=== PATIENT | male | born 1955 | race Caucasian/White ===

== ENCOUNTER 2016-10-03 19:09 | Emergency (ER) | payer MEDICARE, OTHER ==
[~2016-10-03] VITALS: Ht 185.4 cm; Wt 80.0 kg
[~2016-10-03 19:09] MED LIST: MONT10TA2 PO; TRAZ100T50 PO
[2016-10-03 19:13] VITALS: BP 127/96; PULSE 74; RESP 16; TEMP 98.9; O2SAT 98
[2016-10-03] MEDS ORDERED: SOMA350T PO (22:40)
[2016-10-03] MEDS ORDERED: PROP20TA3 PO (22:40)
[2016-10-03] MEDS ORDERED: DIAZ10 PO (22:40)
[2016-10-03] MEDS ORDERED: TRAZ100T4 PO (22:40)
[2016-10-03] MEDS ORDERED: SUMA50TA2 PO (22:40)
[2016-10-03] MEDS ORDERED: MONT10TA2 PO (22:40)
[2016-10-03] MEDS ORDERED: TEMA30CA PO (22:40)
[2016-10-03] MEDS ORDERED: SERO200T PO (22:40)
[2016-10-03 22:42] VITALS: BP 135/87; PULSE 61; RESP 20; O2SAT 98
--- NOTE | 2016-10-03 22:58 | PD ---
HPI Chief Complaint: Headache Time Seen by Provider: 22:38 Travel History International Travel<30 days: No Contact w/Intl Traveler<30days: No Traveled to known affect area: No History of Present Illness HPI The patient is a 60 year old male who presents to the [facility] emergency department with a history of intermittent headaches since 2012 when he had a melanoma removed on the left side of his face near the medial canthus and the left side of his nose. The patient reports that he has been to see multiple specialists regarding this including an oral surgeon, urine nose and throat specialist, and recently was referred to [facility] for evaluation by a neurosurgeon. He reports that he has an appointment scheduled for October 18. He reports that he was told that he may have scar tissue entrapping and nerve over the left mu-ism causing his pain. He reports that the pain is getting worse with time. He reports that normally he will have a headache 1-2 times per month , however over the last 4 days he's had a persistent headache. The patient reports that the pain involves the left cheek and left mu-ism. He reports that it hurts worse with chewing or eating. He reports that the pain radiates from the mu-ism down to the left side of his neck. He denies having any nasal discharge or nasal congestion. He denies having any postnasal drip. He denies having any fevers. On review of systems, the patient denies any cough, congestion, neck pain, chest pain, shortness of breath, abdominal pain, vomiting , diarrhea, urinary symptoms, or neurologic symptoms. [facility] Past Medical History Narrative Medical The patient's past medical history is significant for migraine headaches, seasonal allergies, depression, bipolar disorder, history of melanoma involving the skin of the left side of the face, history of acid reflux, history of chronic neck and back pain, history of hypertension, history of seizure disorder. Arthritis: No Bipolar Disorder: Yes Anxiety: Yes Depression: Yes Cardiovascular Problems: No Chest Pain: No Congestive Heart Failure: No COPD: Yes Cerebrovascular Accident: No Diminished Hearing: No Endocrine: Yes Gastrointestinal Disorders: Yes (acid reflux) GERD: Yes Headaches: No Hypertension: Yes Musculoskeletal: Yes (CHRONIC NECK AND BACK PAIN) Psychiatric: Yes Migraines: No Seizures: Yes Past Surgical History Abdominal Surgery: No Cardiac Surgery: No Ear Surgery: No Endocrine Surgery: No Eye Surgery: No Genitourinary Surgery: No Neurologic Surgery: No Oral Surgery: No Thoracic Surgery: No Other Surgery: No Social History Alcohol Use: No Tobacco Use: No Substance Use: No Allergies-Medications (Allergen,Severity, Reaction): Coded Allergies: No Known Allergies (Verified , 04/23/11) Reported Meds & Prescriptions Reported Meds & Active Scripts Active Reported Propranolol (Propranolol HCl) 20 Mg Tab 20 Mg PO Q12HR Temazepam 30 Mg Cap 30 Mg PO HS PRN Sumatriptan (Sumatriptan Succinate) 50 Mg Tab 50 Mg PO DAILY PRN If a satisfactory response has not been obtained at 2 hours, a second dose may be administered Soma (Carisoprodol) 350 Mg Tab 350 Mg PO DAILY PRN Singulair (Montelukast Sodium) 10 Mg Tab 10 Mg PO DAILY Valium (Diazepam) 10 Mg Tab 10 Mg PO TID PRN Trazodone (Trazodone HCl) 100 Mg Tab 100 Mg PO HS Seroquel (Quetiapine Fumarate) 200 Mg Tab 200 Mg PO HS Physical Exam Narrative General: The patient is well-developed well-nourished male, uncomfortable appearing on arrival, holding a compress to the left side of his face. Head and Neck exam: Head is normocephalic atraumatic. The patient reports having left maxillary tenderness on palpation, left mu-ism tenderness on palpation without any palpable temporal artery. The patient has no popping/crepitus or tenderness on palpation of his temporomandibular joint. Eyes: EOMI, pupils are equal round and reactive to light. Nose: Midline septum with pink mucous membranes Mouth: Dentition unremarkable. Moist mucus membranes. Posterior oropharynx is not erythematous. No tonsillar hypertrophy. Uvula midline. Airway patent. Neck: No palpable lymphadenopathy. No nuchal rigidity. No thyromegaly. Cardiovascular: Regular rate and rhythm without murmurs, gallops, or rubs. Lungs: Clear to auscultation bilaterally. No wheezes, rhonchi, or rales. Abdomen: Soft, without tenderness to palpation in all 4 quadrants of the abdomen. No guarding, rebound, or rigidity. Normal bowel sounds are audible. No tenderness on palpation of McBurney's point. Extremities: No clubbing, cyanosis, or edema. Back: No spinous process tenderness to palpation. No costovertebral angle tenderness to palpation. Neurologic Exam: Cranial nerves 2-12 were intact on exam. Strength is 5/5 in all 4 extremities. No sensory deficits noted. No dysdiadochokinesis. Good finger to nose and Heel to arevalo bilaterally. Skin Exam: No rash noted. Intact skin that is warm and dry. Data Data Last Documented VS Vital Signs Date Time Temp Pulse Resp B/P Pulse Ox O2 Delivery O2 Flow Rate FiO2 10/03/16 22:42 61 20 135/87 98 Room Air 10/03/16 19:13 98.9 Orders Electrocardiogram (10/03/16 22:51) Complete Blood Count With Diff (10/03/16 22:51) Comprehensive Metabolic Panel (10/03/16 22:51) Urinalysis - C+S If Indicated (10/03/16 22:51) Westergren Sedimentation Rate (10/03/16 22:51) Magnesium (Mg) (10/03/16 22:51) Chest, Single Ap (10/03/16 22:51) Ct Brain W/O Iv Contrast(Rout) (10/03/16 22:51) Iv Access Insert/Monitor (10/03/16 22:51) Ecg Monitoring (10/03/16 22:51) Oximetry (10/03/16 22:51) Ct Facial Bones W/O Iv Cont (10/03/16 22:51) Ketorolac Inj (Toradol Inj) (10/04/16 00:30) Labs Laboratory Tests Test 10/03/16 10/03/16 23:01 23:05 White Blood Count 10.0 TH/MM3 Red Blood Count 4.81 MIL/MM3 Hemoglobin 15.3 GM/DL Hematocrit 44.6 % Mean Corpuscular Volume 92.7 FL Mean Corpuscular Hemoglobin 31.7 PG Mean Corpuscular Hemoglobin 34.2 % Concent Red Cell Distribution Width 13.2 % Platelet Count 322 TH/MM3 Mean Platelet Volume 8.4 FL Neutrophils (%) (Auto) 64.5 % Lymphocytes (%) (Auto) 24.2 % Monocytes (%) (Auto) 8.7 % Eosinophils (%) (Auto) 2.1 % Basophils (%) (Auto) 0.5 % Neutrophils # (Auto) 6.5 TH/MM3 Lymphocytes # (Auto) 2.4 TH/MM3 Monocytes # (Auto) 0.9 TH/MM3 Eosinophils # (Auto) 0.2 TH/MM3 Basophils # (Auto) 0.0 TH/MM3 CBC Comment DIFF FINAL Differential Comment Erythrocyte Sedimentation Rate 4 mm/hr Sodium Level 140 MEQ/L Potassium Level 4.1 MEQ/L Chloride Level 106 MEQ/L Carbon Dioxide Level 28.1 MEQ/L Anion Gap 6 MEQ/L Blood Urea Nitrogen 10 MG/DL Creatinine 0.96 MG/DL Estimat Glomerular Filtration 80 ML/MIN Rate Random Glucose 89 MG/DL Calcium Level 9.2 MG/DL Magnesium Level 2.0 MG/DL Total Bilirubin 0.6 MG/DL Aspartate Amino Transf 26 U/L (AST/SGOT) Alanine Aminotransferase 42 U/L (ALT/SGPT) Alkaline Phosphatase 108 U/L Total Protein 7.8 GM/DL Albumin 4.4 GM/DL Urine Color YELLOW Urine Turbidity CLEAR Urine pH 6.0 Urine Specific [place] 1.018 Urine Protein NEG mg/dL Urine Glucose (UA) NEG mg/dL Urine Ketones NEG mg/dL Urine Occult Blood NEG Urine Nitrite NEG Urine Bilirubin NEG Urine Urobilinogen LESS THAN 2.0 MG/DL Urine Leukocyte Esterase NEG Urine RBC LESS THAN 1 /hpf Urine WBC LESS THAN 1 /hpf Urine Hyaline Casts 1 /lpf Urine Granular Casts 2 /lpf Urine Mucus FEW /lpf Microscopic Urinalysis Comment CULT NOT INDICATED MDM Medical Decision Making Medical Screen Exam Complete: Yes Emergency Medical Condition: Yes Medical Record Reviewed: Yes Interpretation(s) Last Impressions Maxillofacial CT 10/03/162250 Signed Impressions: Service Date/Time: Monday, October 03, 2016 23:49 - CONCLUSION: Normal examination. Vitor Gagnon MD Head CT 10/03/162250 Signed Impressions: Service Date/Time: Monday, October 03, 2016 23:49 - CONCLUSION: Normal examination. Vitor Gagnon MD Chest X-Ray 10/03/162250 Signed Impressions: Service Date/Time: Monday, October 03, 2016 22:52 - CONCLUSION: Normal examination. Some lucency underneath the right hemidiaphragm NOT in the typical pattern of free air. Vitor Gagnon MD Differential Diagnosis Temporal arteritis, versus TMJ syndrome, versus trigeminal neuralgia, versus cluster headache, versus migraine headache, versus tension headache Narrative Course During the course of the patients emergency department visit, the patients history, examination, and differential diagnosis were reviewed with the patient. The patient had IV access obtained and blood work sent for analysis. The patient was placed on a playground monitor with oximetry and blood pressure monitoring. CT scan of the head and facial bones was ordered. The patient was initially provided Toradol 30 mg IV [address] scan of the head showed no evidence of intracranial hemorrhage. The patients laboratory studies were reviewed and remarkable for a CBC that shows a white count 10, hemoglobin 15.3, platelets 322 with monocytes at 8.7 sedimentation rate is 4 ruling out temporal arteritis. CMP is remarkable for a GFR of 80, urinalysis is unremarkable. Radiology studies were reviewed and remarkable for a chest x-ray that shows no acute abnormality. CT scan of the brain shows no acute abnormality. CT scan of the facial bones shows no acute abnormality. The patient's results were discussed with him. The patient reports that he does have an appointment with a specialist at [facility] in October. We discussed the differential. Temporal iritis has been ruled out, however still in the differential would be trigeminal neuralgia. The patient was instructed regarding the importance of following up with a neurologist regarding this. The patient was given the name of the neurologist internet sales consultant, Dr. Morales for followup. Carbamazepine, the drug of choice for trigeminal neuralgia unfortunately interacts with the patient Seroquel that he is on, therefore this was not written to be administered, however the patient was given a prescription for an anti-inflammatory pain medication and instructed regarding the importance of close follow-up with the neurologist. The patient is resting comfortably and feels better, is alert and in no distress. The patients results and examination findings were discussed with the patient. The repeat examination is unremarkable and benign. The history, exam, diagnostic testing, and current condition do not suggest any significant pathology to warrant further testing, continued ED treatment, admission, or surgical evaluation at this point. The vital signs have been stable. The patient does not have uncontrollable pain, intractable vomiting, or other significant symptoms. The patient's condition is stable and appropriate for discharge. The patient will pursue further outpatient evaluation with a primary care physician or other designated or consulting physician as indicated in the discharge instructions. The patient expressed understanding and was agreeable with this plan. Diagnosis Primary Impression: Facial pain syndrome Referrals: Adam Morales MD 3 days Patient Instructions: Atypical Facial Pain (ED), General Instructions Med/Other Pt SpecificInfo: Prescription(s) given Scripts Naproxen (Naprosyn)500 Mg Ghl219 Mg PO BID #10 TAB Ref 0 Prov:Tonia Diaz MD 10/04/16 Disposition: 01 DISCHARGE HOME Condition: Stable Tonia Diaz MD Oct 03, 2016 22:58
[2016-10-03 23:16] LABS: AUTOMATED NEUTROPHIL # 6.5 TH/MM3 (1.8-7.7); BASOPHIL % 0.5 % (0.0-2.0); EOSINOPHIL # 0.2 TH/MM3 (0-0.4); EOSINOPHIL % 2.1 % (0.0-4.0); HEMATOCRIT 44.6 % (39.0-51.0); HEMO FLAGS DIFF FINAL; LYMPH % 24.2 % (9.0-44.0); LYMPHOCYTE # 2.4 TH/MM3 (1.0-4.8); MEAN CELL VOLUME 92.7 FL (80.0-100.0); MEAN CORPUSCULAR HEMOGLOBIN 31.7 PG (27.0-34.0); MEAN CORPUSCULAR HGB CONC 34.2 % (32.0-36.0); MONO % 8.7 % (0.0-8.0); NEUT % 64.5 % (16.0-70.0); PLATELET COUNT 322 TH/MM3 (150-450); RED BLOOD COUNT 4.81 MIL/MM3 (4.50-5.90); RED CELL DISTRIBUTION WIDTH 13.2 % (11.6-17.2)
--- NOTE | 2016-10-03 23:18 | RADRPT ---
EXAM DATE/TIME: 10/03/2016 22:52 [facility] COMPARISON: No previous studies available for comparison. INDICATIONS : Left sided facial pain post op removal of cancer, cough. MEDICAL HISTORY : Melanoma SURGICAL HISTORY : None. ENCOUNTER: Initial ACUITY: 1 day PAIN SCORE: 0/10 LOCATION: Bilateral chest FINDINGS: A single view of the chest demonstrates the lungs to be symmetrically aerated without evidence of mas s, infiltrate or effusion. The cardiomediastinal contours are unremarkable. Osseous structures are intact.CONCLUSION: Normal examination. Some lucency underneath the right hemidiaphragm NOT in the typical pattern of lazara e air. Vitor Gagnon MD on October 03, 2016 at 23:16 Board Certified Radiologist. This report was verified electronically.
[2016-10-03 23:29] LABS: BLOOD, URINE NEG (NEG); COMMENT (UR) CULT NOT INDICATED; CULTURE IF INDICATED CULT NOT INDICATED; GLUCOSE,URINE NEG (NEG); GRANULAR CAST, URINE 2 /lpf; HYALINE CAST, URINE 1 /lpf (RARE); KETONE, URINE NEG (NEG); MUCUS URINE FEW /lpf (OCC); NITRITE,URINE NEG (NEG); URINE COLOR YELLOW (YELLW/STRAW)
[2016-10-03 23:35] LABS: ALT (GPT) 42 U/L (12-78); ANION GAP 6 MEQ/L (5-15); AST (GOT) 26 U/L (15-37); BICARBONATE 28.1 MEQ/L (21.0-32.0); BLOOD UREA NITROGEN 10 MG/DL (7-18); CHLORIDE 106 MEQ/L (98-107); GLOMERULAR FILTRATION RATE 80 ML/MIN (>89); POTASSIUM 4.1 MEQ/L (3.5-5.1); SODIUM (NA) 140 MEQ/L (136-145)
[2016-10-03 23:37] LABS: ALKALINE PHOSPHATASE 108 U/L (45-117); TOTAL BILIRUBIN ADULT 0.6 MG/DL (0.2-1.0)
--- NOTE | 2016-10-04 00:08 | RADRPT ---
EXAM DATE/TIME: 10/03/2016 23:49 [facility] COMPARISON: No previous studies available for comparison. INDICATIONS : Left sided headache x1 month. RADIATION DOSE: 46.13 CTDIvol (mGy) MEDICAL HISTORY : Seizures. Gastroesophageal reflux disease. Chronic obstructive pulmonary disease. SURGICAL HISTORY : Cervical spine surgery. ENCOUNTER: Initial ACUITY: 1 month PAIN SCALE: 10/10 LOCATION: Left cranial TECHNIQUE: Multiple contiguous axial images were obtained of the head. Using automated exposure control and adj ustment of the mA and/or kV according to patient size, radiation dose was kept as low as reasonably a chievable to obtain optimal diagnostic quality images. FINDINGS: CEREBRUM: The ventricles are normal for age. No evidence of midline shift, mass lesion, hemorrhage or acute in farction. No extra-axial fluid collections are seen. POSTERIOR FOSSA: The cerebellum and brainstem are intact. The 4th ventricle is midline. The cerebellopontine angle i s unremarkable. EXTRACRANIAL: The visualized portion of the orbits is intact. SKULL: The calvaria is intact. No evidence of skull fracture. CONCLUSION: Normal examination. Vitor Gagnon MD on October 04, 2016 at 0:07 Board Certified Radiologist. This report was verified electronically.
--- NOTE | 2016-10-04 00:10 | RADRPT ---
EXAM DATE/TIME: 10/03/2016 23:49 [facility] COMPARISON: No previous studies available for comparison. INDICATIONS : Left sided maxillary pain. History of melanoma removal left side of face. RADIATION DOSE: 36.44 CTDIvol (mGy) MEDICAL HISTORY : Seizures. Chronic obstructive pulmonary disease. Gastroesophageal reflux disease. SURGICAL HISTORY : Cervical spine surgery. ENCOUNTER: Initial ACUITY: 1 month PAIN SCORE: 10/10 LOCATION: Left facial TECHNIQUE: Volumetric scanning of the facial bones was performed. Using automated exposure control and adjustme nt of the mA and/or kV according to patient size, radiation dose was kept as low as reasonably achiev able to obtain optimal diagnostic quality images. FINDINGS: ORBITS: The orbital and infraorbital osseous structures are intact. The retroconal structures have a normal configuration. No radiopaque foreign bodies are seen. NASAL BONE: The nasal bone and maxillary spine are intact ZYGOMATIC ARCHES: Symmetric without evidence of fracture. SINUSES: The maxillary, ethmoid and frontal sinuses are intact. No air-fluid levels seen. NASAL CAVITY: The nasal septum is intact and midline. The lacrimal ducts are intact. SOFT TISSUES: No radiopaque foreign bodies seen. No soft-tissue swelling is seen. INTRACRANIAL: No intracranial air seen. CRIBIFORM PLATE: Grossly intact. CONCLUSION: Normal examination. Vitor Gagnon MD on October 04, 2016 at 0:08 Board Certified Radiologist. This report was verified electronically.
[2016-10-04] MEDS ORDERED: KETOROLAC TROMETHAMINE 30 MG/ML (IVP) VIAL IV PUSH ONE (00:30)
[2016-10-04] MEDS ORDERED: NAPR500 PO (00:57)
[2016-10-04 01:56] VITALS: BP 138/89
--- NOTE | 2016-10-04 11:33 | EKG ---
Date Performed: 10/03/2016 Time Performed: 23:28:16 PTAGE: 60 years EKG: SINUS BRADYCARDIA INCOMPLETE RIGHT BUNDLE BRANCH BLOCK BORDERLINE ECG PREVIOUS TRACING : 05/02/2010 20.14 Compared to prior tracing no significant change DOCTOR: Macrelino Gusman Interpretating Date/Time 10/04/2016 11:31:25
== END 2016-10-04 01:57 | disposition home or self-care (01) ==
LOC: NEPE 19:09
DX: R51 Headache (principal); I10 Essential (primary) hypertension; G40.909 Epilepsy, unspecified, not intractable, without status epilepticus; J44.9 Chronic obstructive pulmonary disease, unspecified; G89.29 Other chronic pain; K21.9 Gastro-esophageal reflux disease without esophagitis; R00.1 Bradycardia, unspecified; I45.10 Unspecified right bundle-branch block
CPT/HCPCS: 70450; 70486; 71010; 80053; 81001; 83735; 85025; 85652; 93005; 96374; 99284; J1885

== ENCOUNTER 2016-11-12 23:22 | Emergency (ER) | payer MEDICARE, OTHER ==
[~2016-11-12] VITALS: Ht 182.9 cm; Wt 81.2 kg
[~2016-11-12 23:22] MED LIST changes: +DIAZ10 PO; +NAPR500 PO; +PROP20TA3 PO; +SERO200T PO; +SOMA350T PO; +SUMA50TA2 PO; +TEMA30CA PO; +TRAZ100T4 PO; -TRAZ100T50 PO
[2016-11-12 23:31] VITALS: BP 128/89; PULSE 77; RESP 14; TEMP 98.1; O2SAT 96
[2016-11-13] MEDS ORDERED: SODIUM CHLOR 0.9% 1000 ML INJ 1,000 ML IV SCH (00:15)
[2016-11-13] MEDS ORDERED: HYDROmorphone HCL PF 1 MG/ML VIAL IV PUSH ONE (00:15)
[2016-11-13] MEDS ORDERED: ONDANSETRON HCL 4 MG/2 ML VIAL IV PUSH ONE (00:15)
[2016-11-13 00:41] LABS: AUTOMATED NEUTROPHIL # 9.4 TH/MM3 (1.8-7.7); BASOPHIL # 0.1 TH/MM3 (0-0.2); BASOPHIL % 0.5 % (0.0-2.0); EOSINOPHIL # 0.1 TH/MM3 (0-0.4); EOSINOPHIL % 0.5 % (0.0-4.0); HEMATOCRIT 43.8 % (39.0-51.0); HEMO FLAGS DIFF FINAL; LYMPH % 12.6 % (9.0-44.0); LYMPHOCYTE # 1.5 TH/MM3 (1.0-4.8); MEAN CELL VOLUME 91.8 FL (80.0-100.0); MEAN CORPUSCULAR HGB CONC 33.8 % (32.0-36.0); MONO % 9.3 % (0.0-8.0); NEUT % 77.1 % (16.0-70.0); PLATELET COUNT 296 TH/MM3 (150-450); RED BLOOD COUNT 4.77 MIL/MM3 (4.50-5.90); RED CELL DISTRIBUTION WIDTH 12.6 % (11.6-17.2); WHITE BLOOD COUNT 12.1 TH/MM3 (4.0-11.0)
[2016-11-13 00:48] LABS: POTASSIUM 3.5 MEQ/L (3.5-5.1)
[2016-11-13 00:51] LABS: BICARBONATE 22.6 MEQ/L (21.0-32.0)
[2016-11-13] MEDS ORDERED: IOHEXOL 350 MG/ML 10 ML VIAL (for RAD DIAG) IV ONE (01:08)
--- NOTE | 2016-11-13 01:28 | RADHPO ---
EXAM DATE/TIME: 11/13/2016 00:59 [facility] COMPARISON: No previous studies available for comparison. INDICATIONS : Left lower qaudrant pain with difficulty urinating. IV CONTRAST: 95 cc Omnipaque 350 (iohexol) IV ORAL CONTRAST: No oral contrast ingested. RADIATION DOSE: 10.61 CTDIvol (mGy) MEDICAL HISTORY : Hypertension. Gastroesophageal reflux disease. Chronic obstructive pulmonary disease. SURGICAL HISTORY : None. ENCOUNTER: Initial ACUITY: 1 day PAIN SCALE: 5/10 LOCATION: Left lower quadrant TECHNIQUE: Volumetric scanning of the abdomen and pelvis was performed. Using automated exposure control and ad justment of the mA and/or kV according to patient size, radiation dose was kept as low as reasonably achievable to obtain optimal diagnostic quality images. FINDINGS: LOWER LUNGS: The visualized lower lungs are clear. LIVER: Homogeneous density without lesion. There is no dilation of the biliary tree. No calcified gallston es. SPLEEN: Normal size without lesion. PANCREAS: Within normal limits. KIDNEYS: Normal in size and shape. There is no mass, stone or hydronephrosis other than tiny cortical cysts. ADRENAL GLANDS: Within normal limits. VASCULAR: There is no aortic aneurysm. BOWEL/MESENTERY: The stomach, small bowel, and colon demonstrate no acute abnormality. There is no free intraperitone al air or fluid. Suture around the cecum suspicious for appendectomy ABDOMINAL WALL: Within normal limits. RETROPERITONEUM: There is no lymphadenopathy. BLADDER: No wall thickening or mass. REPRODUCTIVE: Within normal limits. INGUINAL: There is no lymphadenopathy or hernia. Mild fatty prominence of the left inguinal canal opening could be an early hernia but no bowel is involved. MUSCULOSKELETAL: Within normal limits for patient age. CONCLUSION: No etiology for abdominal pain is identified. Suspected appendectomy suture. Vitor Gagnon MD on November 13, 2016 at 1:23 Board Certified Radiologist. This report was verified electronically.
[2016-11-13 01:49] LABS: BLOOD, URINE NEG (NEG); GLUCOSE,URINE NEG (NEG); KETONE, URINE TRACE mg/dL (NEG); NITRITE,URINE NEG (NEG); PH, URINE 5.5 (5.0-8.5)
[2016-11-13 01:55] LABS: CALCIUM OXALATE CRYSTALS,URINE OCC /hpf; COMMENT (UR) CULT NOT INDICATED; CULTURE IF INDICATED CULT NOT INDICATED; RBC, URINE 0-2 /hpf (0-3); SQUAMOUS EPITHELIAL CELL URINE 0-5 /hpf (0-5); URINE COLOR YELLOW (YELLW/STRAW); WBC, URINE 0-2 /hpf (0-5)
[2016-11-13] MEDS ORDERED: HYDR-3533 PO (02:01)
--- NOTE | 2016-11-13 02:02 | PD ---
HPI Chief Complaint: Complaint Time Seen by Provider: 00:01 Travel History International Travel<30 days: No Contact w/Intl Traveler<30days: No Traveled to known affect area: No History of Present Illness HPI 60-year-old male presents to the emergency department by private vehicle for complaint of left groin pain. Patient states he is noted decreased urine output. Patient states he's had a couple bottles of water and some tea and still has not produced urine. Patient denies fever or chills. Patient's had no nausea or vomiting. Patient denies any injury. Patient's noted lump to the lower lower groin area. Patient denies any testicular pain penile discharge or scrotal mass. Patient denies any trauma or injury. PFSH Past Medical History Narrative Medical COPD bipolar disorder chronic pain syndrome, seizure; no surgery; no tobacco use ; nursing notes reviewed Arthritis: No Bipolar Disorder: Yes Anxiety: Yes Depression: Yes Cardiovascular Problems: No Chest Pain: No Congestive Heart Failure: No COPD: Yes Cerebrovascular Accident: No Diminished Hearing: No Endocrine: Yes Gastrointestinal Disorders: Yes (acid reflux) GERD: Yes Headaches: No Hypertension: Yes Musculoskeletal: Yes (CHRONIC NECK AND BACK PAIN) Psychiatric: Yes Migraines: No Seizures: Yes ?: Not Past Surgical History Abdominal Surgery: No Cardiac Surgery: No Ear Surgery: No Endocrine Surgery: No Eye Surgery: No Genitourinary Surgery: No Neurologic Surgery: No Oral Surgery: No Thoracic Surgery: No Other Surgery: No Social History Alcohol Use: No Tobacco Use: No Substance Use: No Allergies-Medications (Allergen,Severity, Reaction): Coded Allergies: No Known Allergies (Verified , 04/23/11) Reported Meds & Prescriptions Reported Meds & Active Scripts Active Lortab (Hydrocodone-Acetaminophen) 5-325 Mg Tab 1 Tab PO Q6H PRN Reported Temazepam 30 Mg Cap 30 Mg PO HS PRN Sumatriptan (Sumatriptan Succinate) 50 Mg Tab 50 Mg PO DAILY PRN If a satisfactory response has not been obtained at 2 hours, a second dose may be administered Singulair (Montelukast Sodium) 10 Mg Tab 10 Mg PO DAILY Valium (Diazepam) 10 Mg Tab 10 Mg PO TID PRN Trazodone (Trazodone HCl) 100 Mg Tab 100 Mg PO HS Seroquel (Quetiapine Fumarate) 200 Mg Tab 200 Mg PO HS Review of Systems Except as stated in HPI: all other systems reviewed are Neg Physical Exam Narrative GENERAL: SKIN: Warm and dry. HEAD: Normocephalic. EYES: No scleral icterus. No injection or drainage. NECK: Supple, trachea midline. No JVD or lymphadenopathy. CARDIOVASCULAR: Regular rate and rhythm without murmurs, gallops, or rubs. RESPIRATORY: Breath sounds equal bilaterally. No accessory muscle use. GASTROINTESTINAL: Abdomen soft, non-tender, nondistended. : Circumcised male bilaterally descended testicles positive cremasteric reflex small palpable hernia readily reducible with gentle pressure. MUSCULOSKELETAL: No cyanosis, or edema. BACK: Nontender without obvious deformity. No CVA tenderness. Data Data Last Documented VS Vital Signs Date Time Temp Pulse Resp B/P Pulse Ox O2 Delivery O2 Flow Rate FiO2 11/13/16 02:16 88 16 148/72 99 11/12/16 23:31 98.1 Orders Bladder Scan PRN (11/12/16 23:50) Urinalysis - C+S If Indicated (11/12/16 23:50) ^ Saline Lock (11/13/16 00:01) Complete Blood Count With Diff (11/13/16 00:01) Basic Metabolic Panel (Bmp) (11/13/16 00:01) Ct Abd/Pel W Iv Contrast(Rout) (11/13/16 ) Hydromorphone Pf Inj (Dilaudid Pf Inj) (11/13/16 00:15) Ondansetron Inj (Zofran Inj) (11/13/16 00:15) Sodium Chlor 0.9% 1000 Ml Inj (Ns 1000 M (11/13/16 00:15) Iohexol 350 Inj (Omnipaque 350 Inj) (11/13/16 01:08) Ketorolac Inj (Toradol Inj) (11/13/16 02:15) Labs Laboratory Tests Test 11/13/16 11/13/16 00:10 01:40 White Blood Count 12.1 TH/MM3 Red Blood Count 4.77 MIL/MM3 Hemoglobin 14.8 GM/DL Hematocrit 43.8 % Mean Corpuscular Volume 91.8 FL Mean Corpuscular Hemoglobin 31.0 PG Mean Corpuscular Hemoglobin 33.8 % Concent Red Cell Distribution Width 12.6 % Platelet Count 296 TH/MM3 Mean Platelet Volume 8.3 FL Neutrophils (%) (Auto) 77.1 % Lymphocytes (%) (Auto) 12.6 % Monocytes (%) (Auto) 9.3 % Eosinophils (%) (Auto) 0.5 % Basophils (%) (Auto) 0.5 % Neutrophils # (Auto) 9.4 TH/MM3 Lymphocytes # (Auto) 1.5 TH/MM3 Monocytes # (Auto) 1.1 TH/MM3 Eosinophils # (Auto) 0.1 TH/MM3 Basophils # (Auto) 0.1 TH/MM3 CBC Comment DIFF FINAL Differential Comment Sodium Level 139 MEQ/L Potassium Level 3.5 MEQ/L Chloride Level 107 MEQ/L Carbon Dioxide Level 22.6 MEQ/L Anion Gap 9 MEQ/L Blood Urea Nitrogen 18 MG/DL Creatinine 1.30 MG/DL Estimat Glomerular Filtration 56 ML/MIN Rate Random Glucose 107 MG/DL Calcium Level 9.3 MG/DL Urine Color YELLOW Urine Turbidity CLEAR Urine pH 5.5 Urine Specific [place] GREATER THAN 1.035 Urine Protein TRACE mg/dL Urine Glucose (UA) NEG mg/dL Urine Ketones TRACE mg/dL Urine Occult Blood NEG Urine Nitrite NEG Urine Bilirubin NEG Urine Leukocyte Esterase NEG Urine RBC 0-2 /hpf Urine WBC 0-2 /hpf Urine Squamous Epithelial 0-5 /hpf Cells Urine Calcium Oxalate Crystals OCC /hpf Urine Bacteria NONE /hpf Microscopic Urinalysis Comment CULT NOT INDICATED MDM Medical Decision Making Medical Screen Exam Complete: Yes Emergency Medical Condition: Yes Medical Record Reviewed: Yes Interpretation(s) Last Impressions Abdomen/Pelvis CT 11/13/16 0000 Signed Impressions: Service Date/Time: Sunday, November 13, 2016 00:59 - CONCLUSION: No etiology for abdominal pain is identified. Suspected appendectomy suture. Vitor Gagnon MD CBC & BMP Diagram 11/13/16 00:10 Vital Signs Date Time Temp Pulse Resp B/P Pulse Ox O2 Delivery O2 Flow Rate FiO2 11/12/16 23:31 98.1 77 14 128/89 96 Differential Diagnosis Groin pain, dysuria, hernia, diverticulitis, urethritis, UTI, epididymoorchitis Narrative Course IV access obtained specimens collected and sent for resulting; patient given Dilaudid 1 mg IV and Zofran 4 mg IV Bladder scan ordered CT abdomen and pelvis with IV contrast ordered; patient administered 1 L normal saline wide open It is 2 AM patient has a readily reducible small left inguinal hernia; CT abdomen and pelvis reveals no acute intra-abdominal or pelvic process; urinalysis is normal except for elevated specific gravity; values are grossly within normal range. Patient is stable for outpatient management. Diagnosis Primary Impression: Mild left inguinal hernia Additional Impression: Dehydration Referrals: Primary Care Physician 3 days Patient Instructions: General Instructions Med/Other Pt SpecificInfo: Prescription(s) given Scripts Hydrocodone-Acetaminophen (Lortab)5-325 Mg Tab1 Tab PO Q6H PRN (PAIN) #10 TAB Ref 0 Prov:Kamila Redd MD 11/13/16 Disposition: 01 DISCHARGE HOME Condition: Stable Kamila Redd MD November 13, 2016 02:02
[2016-11-13] MEDS ORDERED: KETOROLAC TROMETHAMINE 30 MG/ML (IVP) VIAL IV PUSH ONE (02:15)
[2016-11-13 02:16] VITALS: BP 148/72
== END 2016-11-13 02:16 | disposition home or self-care (01) ==
LOC: PHED 23:22
DX: K40.90 Unilateral inguinal hernia, without obstruction or gangrene, not specified as recurrent (principal); E86.0 Dehydration; F31.9 Bipolar disorder, unspecified; F41.9 Anxiety disorder, unspecified; F32.9 Major depressive disorder, single episode, unspecified; J44.9 Chronic obstructive pulmonary disease, unspecified; K21.9 Gastro-esophageal reflux disease without esophagitis; I10 Essential (primary) hypertension; Z79.899 Other long term (current) drug therapy
CPT/HCPCS: 74177; 80048; 81001; 85025; 96361; 96374; 96375; 99285; J1170; J1885; J2405; J7030; Q9967

== ENCOUNTER 2017-05-03 15:24 | Emergency (ER) | payer MEDICARE, OTHER ==
[~2017-05-03 15:24] MED LIST changes: +HYDR-3533 PO; -NAPR500 PO; -PROP20TA3 PO; -SOMA350T PO
[2017-05-03 15:26] VITALS: BP 137/76; PULSE 99; RESP 16; TEMP 98.4; O2SAT 97
--- NOTE | 2017-05-03 16:38 | RADRPT ---
EXAM DATE/TIME: 05/03/2017 16:09 [facility] COMPARISON: CT ABDOMEN & PELVIS W CONTRAST, November 13, 2016, 0:59. INDICATIONS : Cephalgia x 4 years. RADIATION DOSE: 38.20 CTDIvol (mGy) MEDICAL HISTORY : Hypertension. Gastroesophageal reflux disease. SURGICAL HISTORY : None. ENCOUNTER: Initial ACUITY: >1 yr PAIN SCALE: 7/10 LOCATION: Left cranial TECHNIQUE: Multiple contiguous axial images were obtained of the head. Using automated exposure control and adj ustment of the mA and/or kV according to patient size, radiation dose was kept as low as reasonably a chievable to obtain optimal diagnostic quality images. DICOM format image data is available electro nically for review and comparison. FINDINGS: CEREBRUM: The ventricles are normal for age. No evidence of midline shift, mass lesion, hemorrhage or acute in farction. No extra-axial fluid collections are seen. POSTERIOR FOSSA: The cerebellum and brainstem are intact. The 4th ventricle is midline. The cerebellopontine angle i s unremarkable. EXTRACRANIAL: The visualized portion of the orbits is intact. SKULL: The calvaria is intact. No evidence of skull fracture. CONCLUSION: 1. No acute intracranial abnormality identified. Wolfgang Fountain MD on May 03, 2017 at 16:36 Board Certified Radiologist. This report was verified electronically.
[2017-05-03 16:55] VITALS: BP 132/81; PULSE 74; RESP 16; O2SAT 98
[2017-05-03] MEDS ORDERED: TRAZ100T10 PO (17:08)
[2017-05-03 17:10] LABS: AUTOMATED NEUTROPHIL # 8.6 TH/MM3 (1.8-7.7); BASOPHIL % 0.4 % (0.0-2.0); EOSINOPHIL % 0.4 % (0.0-4.0); HEMATOCRIT 48.2 % (39.0-51.0); HEMO FLAGS DIFF FINAL; LYMPH % 15.3 % (9.0-44.0); LYMPHOCYTE # 1.7 TH/MM3 (1.0-4.8); MEAN CELL VOLUME 94.2 FL (80.0-100.0); MEAN CORPUSCULAR HEMOGLOBIN 32.2 PG (27.0-34.0); MEAN CORPUSCULAR HGB CONC 34.1 % (32.0-36.0); MONO % 7.8 % (0.0-8.0); NEUT % 76.1 % (16.0-70.0); PLATELET COUNT 357 TH/MM3 (150-450); RED BLOOD COUNT 5.12 MIL/MM3 (4.50-5.90); RED CELL DISTRIBUTION WIDTH 13.7 % (11.6-17.2); WHITE BLOOD COUNT 11.3 TH/MM3 (4.0-11.0)
[2017-05-03] MEDS ORDERED: SODIUM CHLOR 0.9% 1000 ML INJ 1,000 ML IV ONE (17:15)
[2017-05-03] MEDS ORDERED: SUMAtriptan INJ 6 MG/0.5 ML VIAL SQ ONE (17:15)
[2017-05-03] MEDS ORDERED: ONDANSETRON HCL 4 MG/2 ML VIAL IV PUSH ONE (17:15)
[2017-05-03 17:19] LABS: ANION GAP 9 MEQ/L (5-15); AST (GOT) 37 U/L (15-37); BICARBONATE 24.5 MEQ/L (21.0-32.0); BLOOD UREA NITROGEN 12 MG/DL (7-18); CHLORIDE 105 MEQ/L (98-107); GLOMERULAR FILTRATION RATE 75 ML/MIN (>89); POTASSIUM 3.9 MEQ/L (3.5-5.1); SODIUM (NA) 138 MEQ/L (136-145)
[2017-05-03 17:26] LABS: ALKALINE PHOSPHATASE 114 U/L (45-117); ALT (GPT) 60 U/L (12-78); TOTAL BILIRUBIN ADULT 0.6 MG/DL (0.2-1.0)
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
[2017-05-03 17:44] LABS: BLOOD, URINE NEG (NEG); COMMENT (UR) CULT NOT INDICATED; CULTURE IF INDICATED CULT NOT INDICATED; GLUCOSE,URINE NEG (NEG); KETONE, URINE NEG (NEG); NITRITE,URINE NEG (NEG); PH, URINE 5.5 (5.0-8.5); URINE COLOR YELLOW (YELLW/STRAW)
[2017-05-03 17:53] LABS: APTT (PATIENT) 27.2 SEC (24.3-30.1); PROTHROMBIN TIME - PATIENT 11.3 SEC (9.8-11.6)
== END 2017-05-03 19:32 | disposition home or self-care (01) ==
LOC: NEPE 15:24
DX: S09.90XA Unspecified injury of head, initial encounter (principal); W22.8XXA Striking against or struck by other objects, initial encounter; R51 Headache; I10 Essential (primary) hypertension; J44.9 Chronic obstructive pulmonary disease, unspecified; F31.9 Bipolar disorder, unspecified; F41.9 Anxiety disorder, unspecified
CPT/HCPCS: 70450; 80053; 81001; 85025; 85610; 85652; 85730; 86140; 96361; 96372; 96374; 99285; J2405; J3030; J7030

== ENCOUNTER 2017-05-11 19:53 | Emergency (ER) | payer MEDICARE, OTHER ==
[~2017-05-11 19:53] MED LIST changes: -HYDR-3533 PO; +TRAZ100T10 PO; -TRAZ100T4 PO
[2017-05-11 19:55] VITALS: BP 142/75; PULSE 73; RESP 16; TEMP 98.2; O2SAT 96
[2017-05-11] MEDS ORDERED: SODIUM CHLOR 0.9% 1000 ML INJ 1,000 ML IV ONE (21:04)
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
[2017-05-11] MEDS ORDERED: SODIUM CHLORIDE 0.9% FLUSH 10 ML FLUSH IVF PRN (21:15)
[2017-05-11] MEDS ORDERED: PROCHLORPERAZINE INJ 10 MG/2 ML VIAL IVP ONE (21:15)
[2017-05-11] MEDS ORDERED: MORPHINE SULFATE 8 MG/ML INJ IV PUSH ONE (21:15)
[2017-05-11] MEDS ORDERED: diphenhydrAMINE HCL 50 MG/ML VIAL IVP ONE (21:15)
[2017-05-11 21:45] VITALS: BP 133/84; PULSE 74; RESP 18; O2SAT 98
[2017-05-11 22:49] VITALS: BP 130/82
== END 2017-05-11 22:56 | disposition home or self-care (01) ==
LOC: NEPC 19:53
DX: G43.709 Chronic migraine without aura, not intractable, without status migrainosus (principal); G50.0 Trigeminal neuralgia; F31.9 Bipolar disorder, unspecified; J44.9 Chronic obstructive pulmonary disease, unspecified; I10 Essential (primary) hypertension
CPT/HCPCS: 96374; 96375; 99284; J0780; J1200; J2270; J7030

== ENCOUNTER 2017-05-19 20:12 | Emergency (ER) | payer MEDICARE, OTHER ==
[~2017-05-19] VITALS: Ht 180.3 cm; Wt 87.7 kg
[2017-05-19 20:25] VITALS: BP 131/71; PULSE 67; RESP 16; TEMP 98.4; O2SAT 96
[2017-05-19] MEDS ORDERED: LYRI50CA PO (20:39)
[2017-05-19] MEDS ORDERED: SOMA350T PO (20:39)
[2017-05-19] MEDS ORDERED: BACT800T5 PO (21:31)
[2017-05-19] MEDS ORDERED: PERC5TAB12 PO (21:31)
--- NOTE | 2017-05-19 21:32 | PD ---
HPI Chief Complaint: Edema Time Seen by Provider: 21:08 Travel History International Travel<30 days: No Contact w/Intl Traveler<30days: No Traveled to known affect area: No History of Present Illness HPI The patient is a 61-year-old male states for the past 3 days he has had swelling and pain in both great toes around the toenails. He has been wearing shoes that are apparently too tight and are pressing on the great toenails. He has been soaking his toes in peroxide. He states he wants something for the pain. He does have a history of anxiety and bipolar disorder as well as fibromyalgia. PFSH Past Medical History Arthritis: No Bipolar Disorder: Yes Anxiety: Yes Depression: Yes Cardiovascular Problems: No Chest Pain: No Congestive Heart Failure: No COPD: Yes Cerebrovascular Accident: No Diminished Hearing: No Endocrine: Yes Fibromyalgia: Yes Gastrointestinal Disorders: Yes (acid reflux) GERD: Yes Headaches: No Hypertension: Yes Musculoskeletal: Yes (CHRONIC NECK AND BACK PAIN) Neurologic: Yes (neuropathy) Psychiatric: Yes Migraines: Yes Seizures: Yes Tetanus Vaccination: Unknown ?: Not Past Surgical History Abdominal Surgery: No Cardiac Surgery: No Ear Surgery: No Endocrine Surgery: No Eye Surgery: No Genitourinary Surgery: No Neurologic Surgery: No Oral Surgery: No Thoracic Surgery: No Other Surgery: Yes (FACIAL SURGERY X 2) Social History Alcohol Use: No Tobacco Use: No Substance Use: No Allergies-Medications (Allergen,Severity, Reaction): Coded Allergies: No Known Allergies (Verified Adverse Reaction, Unknown, 05/03/17) Reported Meds & Prescriptions Reported Meds & Active Scripts Active Reported Lyrica (Pregabalin) 50 Mg Cap 50 Mg PO DAILY Soma (Carisoprodol) 350 Mg Tab 350 Mg PO QID PRN Trazodone (Trazodone HCl) 100 Mg Tablet 100 Mg PO HS Temazepam 30 Mg Cap 30 Mg PO HS PRN Sumatriptan (Sumatriptan Succinate) 50 Mg Tab 50 Mg PO DAILY PRN If a satisfactory response has not been obtained at 2 hours, a second dose may be administered Singulair (Montelukast Sodium) 10 Mg Tab 10 Mg PO DAILY Valium (Diazepam) 10 Mg Tab 10 Mg PO TID PRN Seroquel (Quetiapine Fumarate) 200 Mg Tab 200 Mg PO HS Review of Systems Except as stated in HPI: all other systems reviewed are Neg Physical Exam Narrative GENERAL: Well-nourished, well-developed patient in slight apparent distress with his bilateral great toe pain. His vital signs are normal. SKIN: Focused skin assessment warm/dry. HEAD: Normocephalic. EYES: No scleral icterus. No injection or drainage. NECK: Supple, trachea midline. No JVD or lymphadenopathy. CARDIOVASCULAR: Regular rate and rhythm without murmurs, gallops, or rubs. RESPIRATORY: Breath sounds equal bilaterally. No accessory muscle use. GASTROINTESTINAL: Abdomen soft, non-tender, nondistended. MUSCULOSKELETAL: No cyanosis, or edema. BACK: Nontender without obvious deformity. No CVA tenderness. Great toes: Both great toenails have been pushed up, likely by too-tight fitting shoes. There is some slight erythema around the edges of the nails. Both nails are loose and are allowing air between the toe and the nail leaving the nailbed slightly exposed. Data Data Last Documented VS Vital Signs Date Time Temp Pulse Resp B/P (MAP) Pulse Ox O2 Delivery O2 Flow Rate FiO2 05/19/17 20:25 98.4 67 16 131/71 (91) 96 MDM Medical Decision Making Medical Screen Exam Complete: Yes Emergency Medical Condition: Yes Medical Record Reviewed: Yes Differential Diagnosis Paronychia, loose toenails, traumatic avulsion of the toenails, felon Narrative Course The patient has an apparent partial traumatic evulsion the toenails which left the toenails loose and off of the bed. The toenails of both tender. There is slight erythema around the nails, the patient may benefit from an antibiotic. Diagnosis Primary Impression: Toenail avulsion Additional Instructions: As we discussed, follow-up with a deer farmer. For now we leave the toenails on because they leave a good path for the new nail to grow underneath. You will ultimately lose these nails. Do not wear full shoes, wear something that does not rub on the nails. Soak the toenails 3 times daily and warm water to keep them clean. Med/Other Pt SpecificInfo: Prescription(s) given Scripts Sulfamethoxazole-Trimethoprim (Bactrim DS) 800-160 Mg Tab 1 TAB PO BID for Infection, #20 TAB 0 Refills Prov: Fernando Anguiano MD 05/19/17 Oxycodone-Acetaminophen (Percocet) 5-325 mg Tab 1 TAB PO Q6H Y for PAIN, #20 TAB 0 Refills Prov: Fernando Anguiano MD 05/19/17 Disposition: 01 DISCHARGE HOME Condition: Stable Fernando Anguiano MD May 19, 2017 21:32
[2017-05-19] MEDS ORDERED: oxyCODONE/ACETAMINOPHEN 5 MG/325 MG TAB PO ONE (21:45)
[2017-05-19] MEDS ORDERED: SULFAMETHOXAZOLE-TRIMETHOPRIM DS 800-160 MG TAB PO ONE (21:45)
== END 2017-05-19 22:21 | disposition home or self-care (01) ==
LOC: PHEFT 20:12
DX: S91.202A Unspecified open wound of left great toe with damage to nail, initial encounter (principal); S91.201A Unspecified open wound of right great toe with damage to nail, initial encounter; X58.XXXA Exposure to other specified factors, initial encounter
CPT/HCPCS: 99284

== ENCOUNTER 2017-05-29 17:44 | Emergency (ER) | payer MEDICARE, OTHER ==
[~2017-05-29] VITALS: Ht 182.9 cm; Wt 86.0 kg
[~2017-05-29 17:44] MED LIST changes: +BACT800T5 PO; +LYRI50CA PO; +PERC5TAB12 PO; +SOMA350T PO
[2017-05-29 17:46] VITALS: BP 141/73; PULSE 77; RESP 16; TEMP 98.2; O2SAT 97
[2017-05-29] MEDS ORDERED: CEPH-460 PO (18:14)
[2017-05-29] MEDS ORDERED: PERC5TAB12 PO (18:14)
[2017-05-29] MEDS ORDERED: oxyCODONE/ACETAMINOPHEN 5 MG/325 MG TAB PO ONE (18:15)
[2017-05-29] MEDS ORDERED: CEPHALEXIN MONOHYDRATE 500 MG CAP PO ONE (18:15)
--- NOTE | 2017-05-29 18:15 | PD ---
HPI Chief Complaint: Skin Problem Time Seen by Provider: 17:59 Travel History International Travel<30 days: No Contact w/Intl Traveler<30days: No Traveled to known affect area: No History of Present Illness HPI 61-year-old male here for evaluation of bilateral great toenail pain. Patient was here on 05/19/17 for the same and was noted to have partial avulsion of his toenails at that time. He also had some mild surrounding erythema and was started on Bactrim. He was advised to follow-up with a machinist wood, and actually has an appointment with a machinist wood in 2 days. He is here today complaining of pain, requesting something for his pain. He reports that the swelling in his toes has improved with the antibiotics. He has been performing Epsom soaks and applying hydrogen peroxide to the toenails. He is concerned about possible gangrene. No fevers or chills. No history of diabetes. PFSH Past Medical History Arthritis: No Bipolar Disorder: Yes Anxiety: Yes Depression: Yes Cardiovascular Problems: No Chest Pain: No Congestive Heart Failure: No COPD: Yes Cerebrovascular Accident: No Diminished Hearing: No Endocrine: Yes Fibromyalgia: Yes Gastrointestinal Disorders: Yes (acid reflux) GERD: Yes Headaches: No Hypertension: Yes Musculoskeletal: Yes (CHRONIC NECK AND BACK PAIN) Neurologic: Yes (neuropathy) Psychiatric: Yes Migraines: Yes Seizures: Yes Past Surgical History Abdominal Surgery: No Cardiac Surgery: No Ear Surgery: No Endocrine Surgery: No Eye Surgery: No Genitourinary Surgery: No Neurologic Surgery: No Oral Surgery: No Thoracic Surgery: No Other Surgery: Yes (FACIAL SURGERY X 2) Social History Alcohol Use: No Tobacco Use: No Substance Use: No Allergies-Medications (Allergen,Severity, Reaction): Coded Allergies: diphenhydramine (Verified Allergy, Unknown, 05/29/17) Reported Meds & Prescriptions Reported Meds & Active Scripts Active Percocet (Oxycodone-Acetaminophen) 5-325 mg Tab 1 Tab PO Q6H PRN Reported Lyrica (Pregabalin) 50 Mg Cap 50 Mg PO DAILY Soma (Carisoprodol) 350 Mg Tab 350 Mg PO QID PRN Trazodone (Trazodone HCl) 100 Mg Tablet 100 Mg PO HS Temazepam 30 Mg Cap 30 Mg PO HS PRN Sumatriptan (Sumatriptan Succinate) 50 Mg Tab 50 Mg PO DAILY PRN If a satisfactory response has not been obtained at 2 hours, a second dose may be administered Singulair (Montelukast Sodium) 10 Mg Tab 10 Mg PO DAILY Valium (Diazepam) 10 Mg Tab 10 Mg PO TID PRN Seroquel (Quetiapine Fumarate) 200 Mg Tab 200 Mg PO HS Review of Systems Except as stated in HPI: all other systems reviewed are Neg Physical Exam Narrative GENERAL: Well-developed, well-nourished, comfortable, no apparent distress. CARDIOVASCULAR: Regular rate and rhythm. Bilateral dorsalis pedis pulses are brisk and equal. MUSCULOSKELETAL: Bilateral great toenails are yellow/greenish in appearance and are from the nailbed. There is still connected at the brachial full. There is mild surrounding erythema as well as tenderness. No fluctuance or induration. No crepitus. No ulcerations. No signs of necrosis. Normal capillary refill in bilateral great toes. PSYCHIATRIC: Appropriate mood and affect; insight and judgment normal. Data Data Last Documented VS Vital Signs Date Time Temp Pulse Resp B/P (MAP) Pulse Ox O2 Delivery O2 Flow Rate FiO2 05/29/17 18:01 16 05/29/17 17:46 98.2 77 141/73 (95) 97 Orders Orders Oxycodone-Acetamin 5-325 Mg (Percocet (05/29/17 18:15) MDM Medical Decision Making Medical Screen Exam Complete: Yes Emergency Medical Condition: Yes Differential Diagnosis Toenail avulsion, fungal infection, cellulitis, gangrene unlikely, osteomyelitis unlikely Narrative Course Vital signs show heart rate 77, blood pressure 141/73, pulse ox 97% on room air , temp of 98.2F. Patient has bilateral great toenail avulsion with separation of the toenails from the nailbed, yet they are still connected at the eponychial fold. I lateral toenails are yellow/greenish, likely a fungal infection. There is mild surrounding erythema. No purulence. No ulcerations. No necrosis or signs of gangrene. Patient is requesting pain medicine. He has an appointment with a machinist wood in 2 days. He is also requesting that I remove his toenails. Because he has an appointment in 2 days, I will leave this decision up to the machinist wood. He has finished a course of Bactrim. Plan is to start him on a course of Keflex. He was encouraged to continue Epsom salt soaks. I will also give him a prescription for some pain medicine. He was also advised to take ibuprofen for his pain. He was advised on when to return to the emergency department. He verbalizes understanding and agreement with plan. Diagnosis Primary Impression: Toenail avulsion Qualified Codes: S91.209D - Unspecified open wound of unspecified toe(s) with damage to nail, subsequent encounter Referrals: Land Conservation Specialist 2 days Additional Instructions: Follow-up with your machinist wood on Tuesday as scheduled. Take antibiotic as prescribed. Take ibuprofen for pain. Return to the emergency department for worsening symptoms or any other concerns. Scripts Oxycodone-Acetaminophen (Percocet) 5-325 mg Tab 1 TAB PO Q6H Y for PAIN, #10 TAB 0 Refills Prov: Az De Santiago MD 05/29/17 Cephalexin (Keflex) 500 Mg Cap 500 MG PO Q8H for Infection, #30 CAP 0 Refills Prov: Az De Santiago MD 05/29/17 Disposition: 01 DISCHARGE HOME Condition: Stable Az De Santiago MD May 29, 2017 18:15
== END 2017-05-29 18:20 | disposition home or self-care (01) ==
LOC: NEPD 17:44
DX: S91.201D Unspecified open wound of right great toe with damage to nail, subsequent encounter (principal); S91.202D Unspecified open wound of left great toe with damage to nail, subsequent encounter; F31.9 Bipolar disorder, unspecified; F41.9 Anxiety disorder, unspecified; J44.9 Chronic obstructive pulmonary disease, unspecified; M79.7 Fibromyalgia; K21.9 Gastro-esophageal reflux disease without esophagitis; I10 Essential (primary) hypertension; X58.XXXD Exposure to other specified factors, subsequent encounter
CPT/HCPCS: 99284

== ENCOUNTER → 2017-12-01 | Day surgery (SDC) | payer MEDICARE, OTHER ==
[~2017-12-01] MED LIST changes: -BACT800T5 PO; +CEPH-460 PO; +GABA300C5 PO; +HYDR-3583 PO; +INCOBOTULINUMTOXINA 100 UNITS VIAL IM ONE; +PROPOFOL 200 MG/20 ML AMP IV ONE
--- NOTE | 2017-12-01 07:56 | M6 ---
cc: Beth Roman MD DATE: 12/01/2017 PROCEDURE PERFORMED: Injection botulinum toxin type A (Xeomin) left temporalis muscle. PREPROCEDURE DIAGNOSIS: Trigeminal neuralgia. History and physical was completed and signed. Consent was signed. Procedure site was marked. Medications were listed and reconciled. Pain score was recorded. Allergies were noted. Time out was taken. Fluoroscopy time was recorded where applicable. Sedation was administered or directed by Dr. Roman. The patient was given oxygen. The patient was monitored by a registered nurse. Total procedure time was greater than 15 minutes. PROCEDURE NOTE: IV was started. Blood pressure cuff, pulse oximeter and EKG were applied. The patient was placed in a semi-recumbent position, sedated with small amounts of propofol titrated to effect. Vital signs were monitored and remained stable throughout the procedure. The left temporal area was prepped with alcohol. A 25-gauge needle was used to inject a total of 100 units of Xeomin into the temporalis muscle near the branches of the trigeminal nerve. The patient was observed in the recovery area after the procedure with stable vital signs prior to being discharged. Beth Roman MD WRM/DL , 07:41 AM , 07:54 AM
== END | disposition home or self-care (01) ==
LOC: PHSDC 06:19
PROVIDERS: ATTEND Pain Medicine Interventional Pain Medicine
DX: G50.0 Trigeminal neuralgia (principal)
CPT/HCPCS: 64612; 99152; J0588

== ENCOUNTER 2017-12-04 11:16 | Emergency (ER) | payer MEDICARE, OTHER ==
[~2017-12-04 11:16] MED LIST changes: -CEPH-460 PO; -INCOBOTULINUMTOXINA 100 UNITS VIAL IM ONE; -LYRI50CA PO; -PERC5TAB12 PO; -PROPOFOL 200 MG/20 ML AMP IV ONE
[2017-12-04 11:19] VITALS: BP 131/66; PULSE 76; RESP 20; TEMP 98.1; O2SAT 95
[2017-12-04] MEDS ORDERED: SODIUM CHLOR 0.9% 1000 ML INJ 1,000 ML IV SCH (12:30)
[2017-12-04] MEDS ORDERED: KETOROLAC TROMETHAMINE 30 MG/ML (IVP) VIAL IV PUSH ONE (12:30)
[2017-12-04 12:43] LABS: AUTOMATED NEUTROPHIL # 3.6 TH/MM3 (1.8-7.7); BASOPHIL # 0.1 TH/MM3 (0-0.2); EOSINOPHIL # 0.1 TH/MM3 (0-0.4); EOSINOPHIL % 1.8 % (0.0-4.0); HEMOGLOBIN 14.3 GM/DL (13.0-17.0); LYMPH % 18.1 % (9.0-44.0); MEAN CELL VOLUME 95.1 FL (80.0-100.0); MEAN CORPUSCULAR HEMOGLOBIN 32.2 PG (27.0-34.0); MEAN CORPUSCULAR HGB CONC 33.9 % (32.0-36.0); MEAN PLATELET VOLUME 8.1 FL (7.0-11.0); MONO % 8.7 % (0.0-8.0); MONOCYTE # 0.5 TH/MM3 (0-0.9); NEUT % 70.4 % (16.0-70.0); PLATELET COUNT 239 TH/MM3 (150-450); RED BLOOD COUNT 4.42 MIL/MM3 (4.50-5.90); RED CELL DISTRIBUTION WIDTH 12.7 % (11.6-17.2); WHITE BLOOD COUNT 5.3 TH/MM3 (4.0-11.0)
[2017-12-04 12:56] LABS: CHLORIDE 106 MEQ/L (98-107); SODIUM (NA) 139 MEQ/L (136-145)
[2017-12-04 12:59] LABS: ALBUMIN 3.8 GM/DL (3.4-5.0); BICARBONATE 26.3 MEQ/L (21.0-32.0); CALCIUM 8.7 MG/DL (8.5-10.1)
[2017-12-04 13:00] LABS: BLOOD UREA NITROGEN 10 MG/DL (7-18); GLUCOSE,RANDOM 96 MG/DL (74-106)
[2017-12-04 13:02] LABS: ALT (GPT) 64 U/L (12-78)
[2017-12-04 13:03] LABS: AST (GOT) 49 U/L (15-37); CREATININE 0.86 MG/DL (0.60-1.30); GLOMERULAR FILTRATION RATE 90 ML/MIN (>89)
[2017-12-04 13:04] LABS: TOTAL BILIRUBIN ADULT 0.4 MG/DL (0.2-1.0)
[2017-12-04 13:05] LABS: ALKALINE PHOSPHATASE 99 U/L (45-117)
--- NOTE | 2017-12-04 13:23 | PD ---
HPI Chief Complaint: Allergic/Adverse Reaction Time Seen by Provider: 11:55 Travel History International Travel<30 days: No Contact w/Intl Traveler<30days: No Traveled to known affect area: No History of Present Illness HPI 62-year-old man presents to the emergency department complaining of pain on the left side of his face fullness of the face with feelings of swelling, weakness in the left side of face extending down through the [place] well following a Botox injection to his left face for trigeminal neuralgia. Patient states he had such bad pain after his previous injection at this time they sedated him there. Was done by Dr. Roman here several days ago. Following that he immediately developed fevers chills nausea vomiting the next day. Those mostly resolved but is left with pain in the left side of face fullness and swelling in the face weakness in the left facial muscles and subjective weakness in his left arms and legs. History Past Medical History Narrative Medical Multiple chronic musculoskeletal complaints pains and injuries Trigeminal neuralgia Chronic opioid use Tetanus Vaccination: > 5 Years Influenza Vaccination: Yes Social History Alcohol Use: No Tobacco Use: No Allergies-Medications (Allergen,Severity, Reaction): Coded Allergies: diphenhydramine (Verified Allergy, Unknown, 12/04/17) Reported Meds & Prescriptions Reported Meds & Active Scripts Active Reported Hydrocodone-Acetamin 10-325 mg (Hydrocodone/Acetaminophen) 10 Mg-325 Mg Tablet 1 Tab PO Q8HR Gabapentin 300 Mg Cap 300 Mg PO TID Soma (Carisoprodol) 350 Mg Tab 350 Mg PO QID PRN Trazodone (Trazodone HCl) 100 Mg Tablet 100 Mg PO HS Temazepam 30 Mg Cap 30 Mg PO HS PRN Sumatriptan (Sumatriptan Succinate) 50 Mg Tab 50 Mg PO DAILY PRN If a satisfactory response has not been obtained at 2 hours, a second dose may be administered Singulair (Montelukast Sodium) 10 Mg Tab 10 Mg PO DAILY Valium (Diazepam) 10 Mg Tab 10 Mg PO TID PRN Seroquel (Quetiapine Fumarate) 200 Mg Tab 200 Mg PO HS Review of Systems Except as stated in HPI: all other systems reviewed are Neg Physical Exam Narrative GENERAL: 62-year-old man, no acute distress. SKIN: Focused skin assessment warm/dry. HEAD: Atraumatic. Normocephalic. EYES: Pupils equal and round. No scleral icterus. No injection or drainage. ENT: No nasal bleeding or discharge. Mucous membranes pink and moist. Little bit of weakness in the left side of face with some mild asymmetry. Tenderness near the point of injection of the left tenriism. Patient describes feeling of fullness and swelling in the left side of face and the brow. I do not see any obvious swelling or asymmetry. There is no erythema redness or evidence of infection. NECK: Trachea midline. No JVD. CARDIOVASCULAR: Regular rate and rhythm. No murmur appreciated. RESPIRATORY: No accessory muscle use. Clear to auscultation. Breath sounds equal bilaterally. GASTROINTESTINAL: Abdomen soft, non-tender, nondistended. Hepatic and splenic margins not palpable. MUSCULOSKELETAL: No obvious deformities. No clubbing. No cyanosis. No edema. NEUROLOGICAL: Awake and alert. No obvious cranial nerve deficits. She is able to generally weak but no obvious asymmetry or gross weakness. Sensation intact to light touch bilaterally. Normal speech. PSYCHIATRIC: Appropriate mood and affect; insight and judgment normal. Data Data Last Documented VS Vital Signs Date Time Temp Pulse Resp B/P (MAP) Pulse Ox O2 Delivery O2 Flow Rate FiO2 12/04/17 12:15 Room Air 12/04/17 11:19 98.1 76 20 131/66 (87) 95 Orders Orders Complete Blood Count With Diff (12/04/17 12:17) Comprehensive Metabolic Panel (12/04/17 12:17) Iv Access Insert/Monitor (12/04/17 12:17) Ketorolac Inj (Toradol Inj) (12/04/17 12:30) Sodium Chlor 0.9% 1000 Ml Inj (Ns 1000 M (12/04/17 12:30) Labs Laboratory Tests Test 12/04/17 12:30 White Blood Count 5.3 TH/MM3 Red Blood Count 4.42 MIL/MM3 Hemoglobin 14.3 GM/DL Hematocrit 42.0 % Mean Corpuscular Volume 95.1 FL Mean Corpuscular Hemoglobin 32.2 PG Mean Corpuscular Hemoglobin Concent 33.9 % Red Cell Distribution Width 12.7 % Platelet Count 239 TH/MM3 Mean Platelet Volume 8.1 FL Neutrophils (%) (Auto) 70.4 % Lymphocytes (%) (Auto) 18.1 % Monocytes (%) (Auto) 8.7 % Eosinophils (%) (Auto) 1.8 % Basophils (%) (Auto) 1.0 % Neutrophils # (Auto) 3.6 TH/MM3 Lymphocytes # (Auto) 1.0 TH/MM3 Monocytes # (Auto) 0.5 TH/MM3 Eosinophils # (Auto) 0.1 TH/MM3 Basophils # (Auto) 0.1 TH/MM3 CBC Comment DIFF FINAL Differential Comment Blood Urea Nitrogen 10 MG/DL Creatinine 0.86 MG/DL Random Glucose 96 MG/DL Total Protein 7.0 GM/DL Albumin 3.8 GM/DL Calcium Level 8.7 MG/DL Alkaline Phosphatase 99 U/L Aspartate Amino Transf (AST/SGOT) 49 U/L Alanine Aminotransferase (ALT/SGPT) 64 U/L Total Bilirubin 0.4 MG/DL Sodium Level 139 MEQ/L Potassium Level 3.8 MEQ/L Chloride Level 106 MEQ/L Carbon Dioxide Level 26.3 MEQ/L Anion Gap 7 MEQ/L Estimat Glomerular Filtration Rate 90 ML/MIN MDM Medical Decision Making Medical Screen Exam Complete: Yes Emergency Medical Condition: Yes Interpretation(s) LABS: CBC is unremarkable CMP is unremarkable Diagnosis Primary Impression: Adverse effect of botulinum toxin Additional Impression: Facial pain syndrome Patient Instructions: General Instructions Additional Instructions: Continue home medications. Follow-up with Dr. Roman this week for repeat evaluation. Return to the emergency department for any worsening pain redness swelling drainage weakness or any other new or worsening symptoms. Med/Other Pt SpecificInfo: No Change to Meds Disposition: 01 DISCHARGE HOME Condition: Stable Vitor Orozco MD Dec 04, 2017 13:23
[2017-12-04] MEDS ORDERED: SUMAtriptan INJ 6 MG/0.5 ML VIAL SQ ONE (13:45)
[2017-12-04 14:05] VITALS: BP 144/78; PULSE 58; RESP 16; O2SAT 94
== END 2017-12-04 14:37 | disposition home or self-care (01) ==
LOC: PHED 11:16
DX: T46.6X5A Adverse effect of antihyperlipidemic and antiarteriosclerotic drugs, initial encounter (principal); G50.1 Atypical facial pain; G50.0 Trigeminal neuralgia
CPT/HCPCS: 80053; 85025; 96361; 96372; 96374; 99284; J1885; J3030; J7030

== ENCOUNTER 2017-12-26 14:37 | Observation (INO) ==
--- NOTE | 2017-12-26 16:19 | XR ---
EXAM DATE: 12/26/2017 4:16 PM EDT AGE/SEX: 62 years / Male INDICATIONS: Chest pain. CLINICAL DATA: This is the patient's initial encounter. Patient reports that signs and symptoms have been present for 2 days and indicates a pain score of 10/10. MEDICAL/SURGICAL HISTORY: Chronic obstructive pulmonary disease. Hypertension. Gastroesophageal reflux disease Fusion, cervical. COMPARISON: [facility], CT ABDOMEN & PELVIS W CONTRAST, 11/13/2016. . FINDINGS: The cardiac silhouette is normal in transverse diameter. The lungs are free of acute parenchymal opac ity. No effusions are identified. There is fissural thickening seen on the lateral view but no eviden ce of pneumonia. There is mild multilevel degenerative change throughout the spine. CONCLUSION: No acute cardiopulmonary disease. Electronically signed by: Anish Rodriguez MD 12/26/2017 4:18 PM EDT
[2017-12-26 16:22] LABS: Baso % (Auto) 0.5 % (0.0-2.0); Eos # (Auto) 0.1 th/mm3 (0.0-0.4); Eos % (Auto) 0.5 % (0.0-4.0); Hematocrit 42.4 % (39.0-51.0); Hemoglobin 14.4 gm/dL (13.0-17.0); Lymph # (Auto) 1.2 th/mm3 (1.0-4.8); Lymph % (Auto) 11.9 % (9.0-44.0); Mean Corpuscular HGB Conc 33.9 % (32.0-36.0); Mean Corpuscular Hemoglobin 31.4 pg (27.0-34.0); Mean Corpuscular Volume 92.7 fL (80.0-100.0); Mean Platelet Volume 8.7 fL (7.0-11.0); Mono # (Auto) 0.8 th/mm3 (0.0-0.9); Neut # (Auto) 8.1 th/mm3 (1.8-7.7); Neut % (Auto) 79.1 % (16.0-70.0); Platelet Count 258 th/mm3 (150-450); Red Blood Count 4.57 mil/mm3 (4.50-5.90); White Blood Count 10.3 th/mm3 (4.0-11.0)
[2017-12-26 16:53] LABS: Anion Gap 10 meq/L (5-15); Blood Urea Nitrogen 7 mg/dL (7-18); Calcium 9.2 mg/dL (8.5-10.1); Carbon Dioxide 24.4 meq/L (21.0-32.0); Chloride 108 meq/L (98-107); Glomerular Filtration Rate 89 mL/min (>89); Glucose,Random 96 mg/dL (74-106); Potassium 4.1 meq/L (3.5-5.1); Sodium 142 meq/L (136-145)
[2017-12-26 17:04] LABS: Creatine Kinase 82 U/L (39-308)
[2017-12-26] MEDS ORDERED: Morphine Inj 4 MG/ML Vial IV.PUSH ONE ×2 (17:55→21:34)
--- NOTE | 2017-12-26 17:58 | ED ---
HPI General Chief Complaint: Chest Pain Stated Complaint: Chest pain Time Seen by Provider: 12/26/17 17:38 Source: patient and family Mode of arrival: ambulatory Limitations: no limitations History of Present Illness HPI narrative: 62-year-old male with a history of a provoked DVT and bipolar disorder presents emergency department evaluation of left lower midsternal chest pain for 2 days. Says that his chest pain is sharp, constant and is increased throughout the day. He has associated shortness of breath along with nausea. Says the pain is increased with deep breaths. Says lying on his side decreases his pain somewhat. Says today he was at his surgeon's office, Dr. Claros he was evaluating his hernia. Pt does not take ASA because he develops a rash as a result of this medication. Patient does not smoke. Occasional use of alcohol. His father has a history of [place] and from heart attack at age 58. Patient has a history of hypertension. Denies any other medical history Complete Quality Measures for STEMI Alert Patients Related Data Home Medications Medication Instructions Recorded Confirmed carisoprodol [Soma] 350 mg PO QID PRN 12/26/17 12/26/17 diazepam [Valium] 10 mg PO BID PRN 12/26/17 12/26/17 gabapentin 300 mg PO BID 12/26/17 12/26/17 montelukast 10 mg PO QPM 12/26/17 12/26/17 quetiapine [Seroquel XR] 200 mg PO HS 12/26/17 12/26/17 temazepam 30 mg PO HS 12/26/17 12/26/17 trazodone 100 mg PO DAILY 12/26/17 12/26/17 Allergies Allergy/AdvReac Type Severity Reaction Status Date / Time diphenhydramine Allergy Unknown Irritation Verified 12/26/17 15:42 Review of Systems Except as stated in HPI: all other systems reviewed are negative [facility] Medical History Medical History Cancer (Acute) Hernia (Acute) Surgical History Surgical History History of facial surgery (Acute) History of knee surgery (Acute) History of lumbar fusion (Acute) Social History Social History Substance History: No History of Abuse Second Hand Smoke Exposure: No Smoking Status: Never smoker How Often Do You Have a Drink Containing Alcohol: Monthly or less Recent Travel in [facility] within the Last 8 Weeks: No Recent Out of Country Travel within the Last 8 Weeks: No Exam Narrative Exam Narrative: GENERAL: Well-developed, well-nourished in mild distress SKIN: Focused skin assessment warm/dry. HEAD: Atraumatic. Normocephalic. EYES: Pupils equal and round. No scleral icterus. No injection or drainage. ENT: No nasal bleeding or discharge. Mucous membranes pink and moist. NECK: Trachea midline. No JVD. No lymphadenopathy CARDIOVASCULAR: Regular rate and rhythm. No murmur appreciated. Mild tenderness palpation of the anterior chest wall RESPIRATORY: No accessory muscle use. Clear to auscultation. Breath sounds equal bilaterally. GASTROINTESTINAL: Abdomen soft, mildly tender to palpation. Hepatic and splenic margins not palpable. MUSCULOSKELETAL: No obvious deformities. No clubbing. No cyanosis. No edema. NEUROLOGICAL: Awake and alert. No obvious cranial nerve deficits. Motor grossly within normal limits. Normal speech. PSYCHIATRIC: Appropriate mood and affect; insight and judgment normal. Course Initial Documented Vital Signs Temperature 99.1 F 12/26/17 15:35 Pulse Rate 63 12/26/17 15:35 Respiratory Rate 16 12/26/17 15:35 Blood Pressure 149/80 H 12/26/17 15:35 Pulse Oximetry 98 12/26/17 15:35 Last Documented Vital Signs Temperature 99.1 F 12/26/17 15:35 Pulse Rate 62 12/26/17 21:00 Respiratory Rate 16 12/26/17 21:50 Blood Pressure 149/79 H 12/26/17 21:00 Pulse Oximetry 97 12/26/17 21:00 Medical Decision Making [facility] Narrative Medical decision making narrative: 62-year-old male presents emergency department complaining of chest pain. His vital signs are stable. Physical exam findings demonstrate a 62-year-old male in mild distress. Patient has tenderness palpation of the chest wall and mild tenderness palpation of the abdomen. My attending discussed this patient with Dr. Claros who requested a CT abdomen pelvis for further evaluation regarding a hernia. At this time, patient's labs are stable. Cardiac enzymes negative. CTA without evidence of pulmonary embolism. Because of patient's history, will admit to chest pain center. Dr. Claros came to the emergency department to discuss his hernia with the patient. Note that this is not an emergent process and is more of a courtesy for this patient. I discussed this with the patient and his son and they agreed to the admission for chest pain evaluation. Because of the time in the evening, ordered gabapentin and Seroquel as this is patient's evening medication. Also ordered nitro and additional morphine for his pain. Will allow the hospitalist and admitting physician to administer further medications. Lab Data Result diagrams: 12/26/17 16:00 12/26/17 16:00 Lab Results 12/26/17 12/26/17 12/26/17 Range/Units 16:00 16:00 18:04 WBC 10.3 (4.0-11.0) th/mm3 RBC 4.57 (4.50-5.90) mil/mm3 Hgb 14.4 (13.0-17.0) gm/dL Hct 42.4 (39.0-51.0) % MCV 92.7 (80.0-100.0) fL MCH 31.4 (27.0-34.0) pg MCHC 33.9 (32.0-36.0) % RDW 14.0 (11.6-17.2) % Plt Count 258 (150-450) th/mm3 MPV 8.7 (7.0-11.0) fL Neut % (Auto) 79.1 H (16.0-70.0) % Lymph % (Auto) 11.9 (9.0-44.0) % [place] % (Auto) 8.0 (0.0-8.0) % Eos % (Auto) 0.5 (0.0-4.0) % Baso % (Auto) 0.5 (0.0-2.0) % Neut # (Auto) 8.1 H (1.8-7.7) th/mm3 Lymph # (Auto) 1.2 (1.0-4.8) th/mm3 [place] # (Auto) 0.8 (0.0-0.9) th/mm3 Eos # (Auto) 0.1 (0.0-0.4) th/mm3 Baso # (Auto) 0.0 (0.0-0.2) th/mm3 WBC Differential . Differential Comment Auto diff final Sodium 142 (136-145) meq/L Potassium 4.1 (3.5-5.1) meq/L Chloride 108 H (98-107) meq/L Carbon Dioxide 24.4 (21.0-32.0) meq/L Anion Gap 10 (5-15) meq/L BUN 7 (7-18) mg/dL Creatinine 0.87 (0.60-1.30) mg/dL Estimated GFR 89 (>89) mL/min Random Glucose 96 (74-106) mg/dL Calcium 9.2 (8.5-10.1) mg/dL Total Bilirubin 0.6 (0.2-1.0) mg/dL Direct Bilirubin 0.1 (0.0-0.2) mg/dL Indirect Bilirubin 0.5 (0.0-0.8) mg/dL AST 39 H (15-37) U/L ALT 57 (12-78) U/L Alkaline Phosphatase 126 H (45-117) U/L Total Creatine Kinase 82 (39-308) U/L Troponin I Less than 0.02 L (0.02-0.05) ng/mL Total Protein 7.8 (6.4-8.2) g/dL Albumin 4.1 (3.4-5.0) g/dL Lipase 366 (73-393) U/L Imaging Data Radiologist's impression: ITS Impressions Chest X-Ray 12/26/17 15:43 CONCLUSION: No acute cardiopulmonary disease. Abdomen/Pelvis CT 12/26/17 17:54 CONCLUSION: 1. No definite acute abnormality seen. 2. Hepatic steatosis. 3. Renal cysts. 4. Mild atelectasis or consolidation at the lung bases. Chest CTA 12/26/17 17:54 CONCLUSION: 1. No pulmonary embolus. 2. Mild posterior lower lobe and posterior left lingular atelectasis or consolidation. Discharge Plan Discharge Disposition Patient Disposition: 30 Still Patient Discharge Condition Condition: Stable Discharge Details Discharge Problem: Atypical chest pain Physicians Team ED Provider: Tere Rangel ED Midlevel Provider: Karolina Simon Primary Care Provider: Consuelo Reyes Attending Provider: Anish Lr Status ED Status: Admitted Observation Patient
[2017-12-26 18:36] LABS: Albumin 4.1 g/dL (3.4-5.0)
[2017-12-26 18:38] LABS: Total Protein 7.8 g/dL (6.4-8.2)
--- NOTE | 2017-12-26 20:05 | CT ---
EXAM DATE: 12/26/2017 7:56 PM EDT AGE/SEX: 62 years / Male INDICATIONS: Left side chest pain and shortness of breath. CLINICAL DATA: This is the patient's initial encounter. Patient reports that signs and symptoms have been present for 1 day and indicates a pain score of 7/10. MEDICAL/SURGICAL HISTORY: Carcinoma, skin cancer. None. RADIATION DOSE: 8.53 CTDI (mGy) COMPARISON: No prior exams available for comparison. TECHNIQUE: Volumetric scanning was performed using a multi-row detector CT scanner during bolus infu dileep of 100 ml Omnipaque 350 (iohexol) nonionic water-soluble contrast as a cumulative dose for mult iple exams. The data was post processed with a variety of visualization algorithms including full vol ume maximum intensity projection and sliding thin slab reformation. Using automated exposure control and adjustment of the mA and/or kV according to patient size, radiation dose was kept as low as reaso nably achievable to obtain optimal diagnostic quality images. DICOM format image data is available e lectronically for review and comparison. FINDINGS: Pulmonary Arteries: No filling defects are seen in the pulmonary arteries out to the subsegmental ve ssels. The left and right pulmonary arteries are normal in diameter. Lung: There is mild increased density at the posterior lower lobes bilaterally. There is also increa sed density at the posterior left lingula. Effusion: None. Mediastinum: No evidence of mediastinal or hilar adenopathy. Other: The axilla is unremarkable. CONCLUSION: 1. No pulmonary embolus. 2. Mild posterior lower lobe and posterior left lingular atelectasis or consolidation. Electronically signed by: Dc Martins MD 12/26/2017 8:04 PM EDT
[2017-12-26] MEDS ORDERED: Acetaminophen 500 MG Tablet PO ONE (21:02)
[2017-12-26] MEDS ORDERED: Morphine Sulfate Inj 2 MG/ML Vial IV.PUSH ONE (21:03)
--- NOTE | 2017-12-26 21:12 | CT ---
EXAM DATE: 12/26/2017 7:58 PM EDT AGE/SEX: 62 years / Male INDICATIONS: Abdominal pain. CLINICAL DATA: This is the patient's initial encounter. Patient reports that signs and symptoms have been present for 1 day and indicates a pain score of 6/10. MEDICAL/SURGICAL HISTORY: Carcinoma, skin cancer. . Hernia repair. ORAL CONTRAST: No oral contrast ingested. RADIATION DOSE: 12.07 CTDI (mGy) COMPARISON: [facility], CT ABDOMEN & PELVIS W CONTRAST, 11/13/2016. . TECHNIQUE: Multiple contiguous axial images were obtained through the abdomen and pelvis following b olus infusion of 100 ml Omnipaque 350 (iohexol) nonionic water-soluble contrast as a cumulative dos e for multiple exams. No oral contrast ingested. Using automated exposure control and adjustment of the mA and/or kV according to patient size, radiation dose was kept as low as reasonably achievable t o obtain optimal diagnostic quality images. DICOM format image data is available electronically for review and comparison. FINDINGS: Lower Lungs: There is minimal increased density at the posterior lower lobes bilaterally. Liver: There is diffuse decreased attenuation to the liver. No focal hepatic masses are seen. Spleen: Homogeneous density without enlargement. Pancreas: Unremarkable without mass or calcification. Kidneys: Normal in size and shape. No evidence of hydronephrosis. There are several small low-densit y mass is seen in the kidneys bilaterally likely related to cysts. The largest cyst is seen at the an terior inferior right kidney measuring 1.9 cm. Adrenal Glands: Unremarkable. Aorta: The aorta and proximal iliac vessels are grossly unremarkable without aneurysmal dilation. Bowel/Mesentery: The bowel loops are grossly unremarkable. The cecum and sigmoid colon have a normal configuration. There is linear increased density at the inferior aspect of the cecum likely related to postsurgical change from prior appendectomy. This appearance is unchanged from the prior exam. Abdominal Wall: Intact. Retroperitoneum: No evidence of adenopathy in the retrocrural, para-aortic, or deep pelvic regions. Bladder: Contours are smooth. Reproductive Organs: No abnormal masses seen. Multiple calcifications are seen in the pelvis likely related to phleboliths. Distal ureteral stones are not seen. Prostatic calcifications are present. Inguinal: The inguinal region is unremarkable without evidence of adenopathy. Bony Structures: There is degenerative change of the lower lumbar spine. CONCLUSION: 1. No definite acute abnormality seen. 2. Hepatic steatosis. 3. Renal cysts. 4. Mild atelectasis or consolidation at the lung bases. Electronically signed by: Dc Martins MD 12/26/2017 9:10 PM EDT
[2017-12-26] MEDS ORDERED: Acetaminophen 500 MG Tablet PO PRN (21:35)
[2017-12-26] MEDS ORDERED: Gadobutrol PF 7.5 MMOL/7.5 ML Vial (for RAD) IV.SIG ONE (21:36)
[2017-12-26] MEDS ORDERED: Gabapentin 300 MG Capsule PO ONE (22:25)
[2017-12-27 00:05] LABS: Creatine Kinase 68 U/L (39-308)
[2017-12-27] MEDS: Morphine Inj 4 MG/ML Vial IV.PUSH PRN ×2 (01:00→05:37)
[2017-12-27 01:36] LABS: Creatine Kinase 77 U/L (39-308)
--- NOTE | 2017-12-27 08:04 | P.HPCA ---
History of Present Illness Primary Care Physician: Consuelo Reyes MD Chief Complaint: Abdominal pain History of Present Illness: 62-year-old male presents to ER for further evaluation of abdominal pain. Onset 2 days ago. Location midepigastric with radiation to left upper quadrat. Characterized as severe, constant sharp pain made worse with breathing, movement , and laying on left side. Endorses poor appetite, nausea, and x2 non-bloody emesis early this morning. No fever or chills. No recent illness in last 4-6 weeks. Relieving factors include applying gentle pressure to midepigastrium and laying still. Reports being seen at Dr. Claros office for an inguinal hernia with worsening symptoms x4 days. During visit notified Dr. Claros of above and was encouraged to go to ER if needed. Upon walking out of doctor's office, pain became so severe his son had to assist him in the car and brought him to ER. Dr. Claros made aware of patient's arrival to ER by ER physician last evening, no acute findings on CT scan. Lifelong non-smoker. No history of hypertension, hyperlipidemia, diabetes, or coronary artery disease. Family history includes brother NM age 59 and father NM in his mid 40s. Father age 58 from cancer. Endorses an active lifestyle, walks and weight trains daily, and maintains his [address] property. - Diagnosis (1) Abdominal pain of unknown cause Inpatient Certification: I certify that the inpatient services were ordered in accordance with Medicare regulations governing the order. This includes certification that hospital inpatient services are reasonable and necessary and in the case of services not specified as inpatient-only under 42 CFR 419.22(n), that they are appropriately provided as inpatient services in accordance to with the 2-midnight benchmark under 43 CFR 412.3(e) Plans for Post Hospital Care: Home Review of Systems All other systems reviewed negative except as stated in HPI PMFSH - History History Provided By: Patient - Medical History Medical History: Medical History (Last Updated 12/27/17 @ 00:37 by Hodan Archibald RN) Cancer Carpal tunnel syndrome on both sides Fusion of spine of cervical region Hernia - Surgical History Surgical History: Surgical History (Last Updated 12/27/17 @ 00:38 by Hodan Archibald RN) History of carpal tunnel surgery of right wrist History of facial surgery History of knee surgery History of lumbar fusion - Tobacco History Second Hand Smoke Exposure: Yes Tobacco Use In Past 30 Days: No Smoking Status: Never smoker - Alcohol History How Often Do You Have a Drink Containing Alcohol: Never - Substance Use History Substance History: No History of Abuse - Travel History History of Recent Travel: No Recent Travel in the [place] Within the Last 8 Weeks: No Recent Travel Out of the Country Within the Last 8 Weeks: No - Immunization History Tetanus Immunization: Unsure Medications and Allergies Active Medications: Active Medications Acetaminophen (Tylenol) 500 mg PO Q4H PRN PRN Reason: HEADACHE Morphine Sulfate (Morphine Inj) 2 mg IV.PUSH Q4H PRN PRN Reason: PAIN SCALE 8 TO 10 Last Admin: 12/27/17 05:37 Dose: 2 mg Sodium Chloride (Ns Flush) 2 ml IV.FLUSH BID ALEXIA Sodium Chloride (Ns Flush) 2 ml IV.FLUSH PRN PRN PRN Reason: FLUSH AFTER USING IV ACCESS Allergies Allergy/AdvReac Type Severity Reaction Status Date / Time diphenhydramine Allergy Unknown Irritation Verified 12/26/17 15:42 Home Medications Medication Instructions Recorded Confirmed Type carisoprodol [Soma] 350 mg PO QID PRN 12/26/17 12/26/17 History diazepam [Valium] 10 mg PO BID PRN 12/26/17 12/26/17 History gabapentin 300 mg PO BID 12/26/17 12/26/17 History montelukast 10 mg PO QPM 12/26/17 12/26/17 History quetiapine [Seroquel XR] 200 mg PO HS 12/26/17 12/26/17 History temazepam 30 mg PO HS 12/26/17 12/26/17 History trazodone 100 mg PO DAILY 12/26/17 12/26/17 History Exam Vital signs: Vital Signs 12/26/17 15:35 12/26/17 18:03 12/26/17 19:00 Temperature 99.1 F Pulse Rate 63 74 63 Respiratory Rate 16 20 18 Blood Pressure 149/80 H 141/73 H 132/80 Pulse Oximetry 98 97 99 12/26/17 19:21 12/26/17 20:00 12/26/17 21:00 Temperature Pulse Rate 60 62 Respiratory Rate 18 18 18 Blood Pressure 132/80 149/79 H Pulse Oximetry 98 97 12/26/17 21:50 12/26/17 23:09 12/27/17 01:20 Temperature 98.2 F Pulse Rate 60 61 Respiratory Rate 16 17 Blood Pressure 141/76 H Pulse Oximetry 96 12/27/17 04:00 12/27/17 06:06 12/27/17 07:44 Temperature 98.3 F 98.4 F Pulse Rate 67 68 Respiratory Rate 16 18 16 Blood Pressure 111/61 124/67 Pulse Oximetry 96 97 Intake & Output 12/26/17 12/27/17 12/27/17 18:59 06:59 18:59 Intake Total 250 / 250 Balance 250 / 250 Weight 83.915 kg 84 kg Intake: Oral 250 / 250 Other: # Voids 3 Weight On Admission 83.915 kg Narrative: 62-year-old male appears to be in moderate distress with movement and palpation, otherwise mildly distress. - Constitutional mild distress, average body habitus, cooperative - Routine HEENT Exam Head: Present: normocephalic, atraumatic - Routine Respiratory Exam Present: CTA bilaterally - Routine Cardiovascular Exam Present: RRR. Absent: murmur, gallop, rubs - Routine Abdominal Exam Present: soft, normoactive bowel sounds, tenderness, guarding. Absent: distended Comments: Moderate distress with light palpation to midepigastrium and left upper quad. No masses. - Routine Extremities Exam Present: full ROM, normal capillary refill. Absent: edema - Routine Skin Exam Present: intact, dry, warm - Routine Neurological Exam Present: alert, oriented X3, CN II-XII intact, normal tone, normal speech Results 12/26/17 16:00 12/26/17 16:00 Cardiac Enzymes 12/26/17 12/26/17 12/26/17 Range/Units 16:00 18:04 22:30 AST 39 H (15-37) U/L Troponin I Less than 0.02 L Less than 0.02 L (0.02-0.05) ng/mL 12/27/17 Range/Units 01:00 AST (15-37) U/L Troponin I Less than 0.02 L (0.02-0.05) ng/mL CBC 12/26/17 Range/Units 16:00 WBC 10.3 (4.0-11.0) th/mm3 RBC 4.57 (4.50-5.90) mil/mm3 Hgb 14.4 (13.0-17.0) gm/dL Hct 42.4 (39.0-51.0) % Plt Count 258 (150-450) th/mm3 Neut # (Auto) 8.1 H (1.8-7.7) th/mm3 Lymph # (Auto) 1.2 (1.0-4.8) th/mm3 Mcpherson # (Auto) 0.8 (0.0-0.9) th/mm3 Eos # (Auto) 0.1 (0.0-0.4) th/mm3 Baso # (Auto) 0.0 (0.0-0.2) th/mm3 Comprehensive Metabolic Panel 12/26/17 12/26/17 Range/Units 16:00 18:04 Sodium 142 (136-145) meq/L Potassium 4.1 (3.5-5.1) meq/L Chloride 108 H (98-107) meq/L Carbon Dioxide 24.4 (21.0-32.0) meq/L BUN 7 (7-18) mg/dL Creatinine 0.87 (0.60-1.30) mg/dL Calcium 9.2 (8.5-10.1) mg/dL Direct Bilirubin 0.1 (0.0-0.2) mg/dL Indirect Bilirubin 0.5 (0.0-0.8) mg/dL AST 39 H (15-37) U/L ALT 57 (12-78) U/L Alkaline Phosphatase 126 H (45-117) U/L Total Protein 7.8 (6.4-8.2) g/dL Albumin 4.1 (3.4-5.0) g/dL Intake and Output 12/26/17 12/27/17 12/27/17 22:59 06:59 14:59 Intake Total 250 / 250 Balance 250 / 250 Intake: Oral 250 / 250 Other: # Voids 3 Weight 83.915 kg 84 kg Weight On Admission 83.915 kg EKG interpretations - EKG EKG results cardiology: sinus rhythm, normal axis, normal QRS, normal ST/T Caprini VTE Risk Assessment Caprini VTE Risk Assessment: Moderate/High Risk (score >= 2) Caprini Risk Assessment Model: Point Value = 1 Point Value = 2 Point Value = 3 Point Value = 5 Age 41-60 Minor surgery BMI > 25 kg/m2 Swollen legs Varicose veins or History of unexplained or recurrent spontaneous Oral contraceptives or hormone replacement Sepsis (< 1 month) Serious lung disease, including pneumonia (< 1 month) Abnormal pulmonary function Acute myocardial infarction Congestive heart failure (< 1 month) History of inflammatory bowel disease Medical patient at bed rest Age 61-74 Arthroscopic surgery Major open surgery (> 45 min) Laparoscopic surgery (> 45 min) Malignancy Confined to bed (> 72 hours) Immobilizing plaster cast Central venous access Age >= 75 History of VTE Family history of VTE Factor V Leiden Prothrombin [id number] Lupus anticoagulant Anticardiolipin antibodies Elevated serum homocysteine Heparin-induced thrombocytopenia Other congenital or acquired thrombophilia Stroke (< 1 month) Elective arthroplasty Hip, pelvis, or leg fracture Acute spinal cord injury (< 1 month) Prophylaxis Regimen: Total Risk Factor Score Risk Level Prophylaxis Regimen 0-1 Low Early ambulation 2 Moderate Order ONE of the following: *Sequential Compression Device (SCD) *Heparin 5000 units SQ BID 3-4 Higher Order ONE of the following medications: *Heparin 5000 units SQ TID *Enoxaparin/Lovenox 40 mg SQ daily (WT < 150 kg, CrCl > 30 mL/min) *Enoxaparin/Lovenox 30 mg SQ daily (WT < 150 kg, CrCl > 10-29 mL/min) *Enoxaparin/Lovenox 30 mg SQ BID (WT < 150 kg, CrCl > 30 mL/min) AND/OR *Sequential Compression Device (SCD) 5 or more Highest Order ONE of the following medications: *Heparin 5000 units SQ TID (Preferred with Epidurals) *Enoxaparin/Lovenox 40 mg SQ daily (WT < 150 kg, CrCl > 30 mL/min) *Enoxaparin/Lovenox 30 mg SQ daily (WT < 150 kg, CrCl > 10-29 mL/min) *Enoxaparin/Lovenox 30 mg SQ BID (WT < 150 kg, CrCl > 30 mL/min) AND *Sequential Compression Device (SCD) Assessment and Plan - Assessment (1) Abdominal pain of unknown cause Code(s): R10.9 - Unspecified abdominal pain Status: Acute Onset Date: ~12/24 Plan: Admitted to chest pain center. ACS ruled out overnight via 3 sets of EKGs and cardiac enzymes. Seen and evaluated by Dr Anish Lr. Discomfort not cardiac in origin, no further cardiac stress testing warranted. Consult Dr. Claros for further recommendation and plan of care. Dilaudid 0.5mg IVP x1 dose now. 0945 Dr. Claros assessed patient. Recommending GI consult for possible endoscopy due and begin Protonix 40 mg BID and Carafate 1 gm Q6H. Depending on results of endoscopy, Dr. Claros may consider repairing inguinal hernia repair during this visit. Further recommendation pending GI consult. 1000 Spoke with GI [facility]. Keep patient NPO at this time for possible endoscopy later today. Patient made aware of plan of care. H&P: Quality - VTE Deep Vein Thrombosis/Pulmonary Embolism Present on Admission: No
[2017-12-27] MEDS ORDERED: HYDROmorphone PF Inj 1 MG/ML Ampul IV.PUSH ONE (08:15)
[2017-12-27] MEDS ORDERED: HYDROmorphone PF Inj 2 MG/ML Vial IV.PUSH ONE (10:00)
[2017-12-27] MEDS: Pantoprazole Inj 40 MG Vial IV.PUSH SCH ×2 (10:39→21:26)
--- NOTE | 2017-12-27 11:13 | P.CONGI ---
History of Present Illness Consult date: 12/27/17 Consult reason: epigastric pain Chief complaint: Atypical Chest Pain History of Present Illness: This is a 62-year-old male who presented to the emergency room on 12/27/2017 with an onset of uncontrolled epigastric pain that does radiate into the left upper quadrant at times the pain is a dull ache with sharp consistent pain worse when laying on his left side and deep breathing. Patient states minimal appetite and food consumption over the past 3 days secondary to the uncontrolled nausea and vomiting. According to the record and patient he had seen Dr. Claros in his office on 12/26/2017 and is tentatively scheduled for hernia repair on 01/13/2018 patient was told to come to the emergency room for further evaluation and GI was consulted. Current labs show hemoglobin 14.4 normal bilirubin 0.6, AST 39, alkaline phosphatase 126, patient does note previous EGD and colonoscopy in 1991 and a history of an ulcer. Patient denies any hematemesis or rectal bleeding and no diarrhea. Patient does have chronic constipation and stays away from spicy foods and eats high-fiber diet. Patient also states that colonoscopy performed in 1991 could not be completely performed due to a fold preventing the scope to pass. He was told during that time that may be part of his constipation issues. Patient has no family history of colon cancer but positive for colon polyps. Currently during my exam patient is still uncomfortable with mid epigastric tenderness and sharp pain with some guarding. He is awake alert and able to answer simple questions <Mylene Andrews - Last Filed: 12/27/17 11:20> Review of Systems All other systems reviewed negative except as stated in HPI <Mylene Andrews - Last Filed: 12/27/17 11:20> PMFSH - History History Provided By: Patient - Medical History Medical History: Medical History (Last Updated 12/27/17 @ 00:37 by Hodan Archibald RN) Cancer Carpal tunnel syndrome on both sides Fusion of spine of cervical region Hernia - Surgical History Surgical History: Surgical History (Last Updated 12/27/17 @ 00:38 by Hodan Archibald, JAZIEL) History of carpal tunnel surgery of right wrist History of facial surgery History of knee surgery History of lumbar fusion - Tobacco History Second Hand Smoke Exposure: Yes Tobacco Use In Past 30 Days: No Smoking Status: Never smoker - Alcohol History How Often Do You Have a Drink Containing Alcohol: Never - Substance Use History Substance History: No History of Abuse - Travel History History of Recent Travel: No Recent Travel in the [place] Within the Last 8 Weeks: No Recent Travel Out of the Country Within the Last 8 Weeks: No - Immunization History Tetanus Immunization: Unsure <Mylene Andrews - Last Filed: 12/27/17 11:20> - Medical History Medical History: Medical History (Last Updated 12/27/17 @ 00:37 by Hodan Archibald, RN) Cancer Carpal tunnel syndrome on both sides Fusion of spine of cervical region Hernia - Surgical History Surgical History: Surgical History (Last Updated 12/27/17 @ 00:38 by Hodan Archibald, JAZIEL) History of carpal tunnel surgery of right wrist History of facial surgery History of knee surgery History of lumbar fusion <Diego Leon - Last Filed: 12/27/17 15:05> Medications and Allergies Active Medications: Active Medications Acetaminophen (Tylenol) 500 mg PO Q4H PRN PRN Reason: HEADACHE Morphine Sulfate (Morphine Inj) 2 mg IV.PUSH Q4H PRN PRN Reason: PAIN SCALE 8 TO 10 Last Admin: 12/27/17 05:37 Dose: 2 mg Pantoprazole Sodium (Protonix Inj) 40 mg IV.PUSH Q12H [facility] Last Admin: 12/27/17 10:39 Dose: 40 mg Sodium Chloride (Ns Flush) 2 ml IV.FLUSH BID [facility] Last Admin: 12/27/17 10:40 Dose: 2 ml Sodium Chloride (Ns Flush) 2 ml IV.FLUSH PRN PRN PRN Reason: FLUSH AFTER USING IV ACCESS Sucralfate (Carafate Liq) 1 gm PO Q6HR [facility] <Mylene Andrews - Last Filed: 12/27/17 11:20> Active Medications: Active Medications Acetaminophen (Tylenol) 500 mg PO Q4H PRN PRN Reason: HEADACHE Morphine Sulfate (Morphine Inj) 2 mg IV.PUSH Q4H PRN PRN Reason: PAIN SCALE 8 TO 10 Last Admin: 12/27/17 05:37 Dose: 2 mg Pantoprazole Sodium (Protonix Inj) 40 mg IV.PUSH Q12H [facility] Last Admin: 12/27/17 10:39 Dose: 40 mg Sodium Chloride (Ns Flush) 2 ml IV.FLUSH BID [facility] Last Admin: 12/27/17 10:40 Dose: 2 ml Sodium Chloride (Ns Flush) 2 ml IV.FLUSH PRN PRN PRN Reason: FLUSH AFTER USING IV ACCESS Sucralfate (Carafate Liq) 1 gm PO Q6HR [facility] <Diego Leon - Last Filed: 12/27/17 15:05> Allergies Allergy/AdvReac Type Severity Reaction Status Date / Time diphenhydramine Allergy Unknown Irritation Verified 12/26/17 15:42 Home Medications Medication Instructions Recorded Confirmed Type carisoprodol [Soma] 350 mg PO QID PRN 12/26/17 12/26/17 History diazepam [Valium] 10 mg PO BID PRN 12/26/17 12/26/17 History gabapentin 300 mg PO BID 12/26/17 12/26/17 History montelukast 10 mg PO QPM 12/26/17 12/26/17 History quetiapine [Seroquel XR] 200 mg PO HS 12/26/17 12/26/17 History temazepam 30 mg PO HS 12/26/17 12/26/17 History trazodone 100 mg PO DAILY 12/26/17 12/26/17 History Exam Vital signs: Vital Signs 12/26/17 15:35 12/26/17 18:03 12/26/17 19:00 Temperature 99.1 F Pulse Rate 63 74 63 Respiratory Rate 16 20 18 Blood Pressure 149/80 H 141/73 H 132/80 Pulse Oximetry 98 97 99 12/26/17 19:21 12/26/17 20:00 12/26/17 21:00 Temperature Pulse Rate 60 62 Respiratory Rate 18 18 18 Blood Pressure 132/80 149/79 H Pulse Oximetry 98 97 12/26/17 21:50 12/26/17 23:09 12/27/17 01:20 Temperature 98.2 F Pulse Rate 60 61 Respiratory Rate 16 17 Blood Pressure 141/76 H Pulse Oximetry 96 12/27/17 04:00 12/27/17 06:06 12/27/17 07:44 Temperature 98.3 F 98.4 F Pulse Rate 67 68 Respiratory Rate 16 18 16 Blood Pressure 111/61 124/67 Pulse Oximetry 96 97 Intake & Output 07/03/0712/27/17 12/27/17 18:59 06:59 18:59 Intake Total 250 / 250 Balance 250 / 250 Weight 83.915 kg 84 kg Intake: Oral 250 / 250 Other: # Voids 3 Weight On Admission 83.915 kg - Constitutional no acute distress - Routine HEENT Exam Head: Present: normocephalic, atraumatic Eye: Present: EOMI ENT: Present: mucous membranes moist - Routine Neck Exam Present: supple - Routine Cardiovascular Exam Present: RRR - Routine Abdominal Exam Present: soft, tenderness, guarding (Epigastric) - Routine Neurological Exam Present: alert, oriented X3 <Mylene Andrews - Last Filed: 12/27/17 11:20> Vital signs: Vital Signs 12/26/17 15:35 12/26/17 18:03 12/26/17 19:00 Temperature 99.1 F Pulse Rate 63 74 63 Respiratory Rate 16 20 18 Blood Pressure 149/80 H 141/73 H 132/80 Pulse Oximetry 98 97 99 12/26/17 19:21 12/26/17 20:00 12/26/17 21:00 Temperature Pulse Rate 60 62 Respiratory Rate 18 18 18 Blood Pressure 132/80 149/79 H Pulse Oximetry 98 97 12/26/17 21:50 12/26/17 23:09 12/27/17 01:20 Temperature 98.2 F Pulse Rate 60 61 Respiratory Rate 16 17 Blood Pressure 141/76 H Pulse Oximetry 96 12/27/17 04:00 12/27/17 06:06 12/27/17 07:44 Temperature 98.3 F 98.4 F Pulse Rate 67 68 Respiratory Rate 16 18 16 Blood Pressure 111/61 124/67 Pulse Oximetry 96 97 Intake & Output 12/26/17 12/27/17 12/27/17 18:59 06:59 18:59 Intake Total 250 / 250 Balance 250 / 250 Weight 83.915 kg 84 kg Intake: Oral 250 / 250 Other: # Voids 3 Weight On Admission 83.915 kg <Diego Leon - Last Filed: 12/27/17 15:05> Results - Labs CBC & Chem 7: 12/26/17 16:00 12/26/17 16:00 Labs: Laboratory Results - last 24 hr 12/26/17 12/26/17 12/26/17 16:00 16:00 18:04 WBC 10.3 RBC 4.57 Hgb 14.4 Hct 42.4 MCV 92.7 MCH 31.4 MCHC 33.9 RDW 14.0 Plt Count 258 MPV 8.7 Neut % (Auto) 79.1 H Lymph % (Auto) 11.9 Bibb % (Auto) 8.0 Eos % (Auto) 0.5 Baso % (Auto) 0.5 Neut # (Auto) 8.1 H Lymph # (Auto) 1.2 Bibb # (Auto) 0.8 Eos # (Auto) 0.1 Baso # (Auto) 0.0 WBC Differential . Differential Comment Auto diff final Sodium 142 Potassium 4.1 Chloride 108 H Carbon Dioxide 24.4 Anion Gap 10 BUN 7 Creatinine 0.87 Estimated GFR 89 Random Glucose 96 Calcium 9.2 Total Bilirubin 0.6 Direct Bilirubin 0.1 Indirect Bilirubin 0.5 AST 39 H ALT 57 Alkaline Phosphatase 126 H Total Creatine Kinase 82 Troponin I Less than 0.02 L Total Protein 7.8 Albumin 4.1 Lipase 366 12/26/17 12/27/17 22:30 01:00 WBC RBC Hgb Hct MCV MCH MCHC RDW Plt Count MPV Neut % (Auto) Lymph % (Auto) Bibb % (Auto) Eos % (Auto) Baso % (Auto) Neut # (Auto) Lymph # (Auto) Bibb # (Auto) Eos # (Auto) Baso # (Auto) WBC Differential Differential Comment Sodium Potassium Chloride Carbon Dioxide Anion Gap BUN Creatinine Estimated GFR Random Glucose Calcium Total Bilirubin Direct Bilirubin Indirect Bilirubin AST ALT Alkaline Phosphatase Total Creatine Kinase 68 77 Troponin I Less than 0.02 L Less than 0.02 L Total Protein Albumin Lipase - Imaging Impressions Chest X-Ray 12/26/17 15:43 CONCLUSION: No acute cardiopulmonary disease. Abdomen/Pelvis CT 12/26/17 17:54 CONCLUSION: 1. No definite acute abnormality seen. 2. Hepatic steatosis. 3. Renal cysts. 4. Mild atelectasis or consolidation at the lung bases. Chest CTA 12/26/17 17:54 CONCLUSION: 1. No pulmonary embolus. 2. Mild posterior lower lobe and posterior left lingular atelectasis or consolidation. <Mylene Andrews - Last Filed: 12/27/17 11:20> - Labs CBC & Chem 7: 12/26/17 16:00 12/26/17 16:00 Labs: Laboratory Results - last 24 hr 12/26/17 12/26/17 12/26/17 16:00 16:00 18:04 WBC 10.3 RBC 4.57 Hgb 14.4 Hct 42.4 MCV 92.7 MCH 31.4 MCHC 33.9 RDW 14.0 Plt Count 258 MPV 8.7 Neut % (Auto) 79.1 H Lymph % (Auto) 11.9 Bibb % (Auto) 8.0 Eos % (Auto) 0.5 Baso % (Auto) 0.5 Neut # (Auto) 8.1 H Lymph # (Auto) 1.2 Bibb # (Auto) 0.8 Eos # (Auto) 0.1 Baso # (Auto) 0.0 WBC Differential . Differential Comment Auto diff final Sodium 142 Potassium 4.1 Chloride 108 H Carbon Dioxide 24.4 Anion Gap 10 BUN 7 Creatinine 0.87 Estimated GFR 89 Random Glucose 96 Calcium 9.2 Total Bilirubin 0.6 Direct Bilirubin 0.1 Indirect Bilirubin 0.5 AST 39 H ALT 57 Alkaline Phosphatase 126 H Total Creatine Kinase 82 Troponin I Less than 0.02 L Total Protein 7.8 Albumin 4.1 Lipase 366 12/26/17 12/27/17 22:30 01:00 WBC RBC Hgb Hct MCV MCH MCHC RDW Plt Count MPV Neut % (Auto) Lymph % (Auto) Bibb % (Auto) Eos % (Auto) Baso % (Auto) Neut # (Auto) Lymph # (Auto) Bibb # (Auto) Eos # (Auto) Baso # (Auto) WBC Differential Differential Comment Sodium Potassium Chloride Carbon Dioxide Anion Gap BUN Creatinine Estimated GFR Random Glucose Calcium Total Bilirubin Direct Bilirubin Indirect Bilirubin AST ALT Alkaline Phosphatase Total Creatine Kinase 68 77 Troponin I Less than 0.02 L Less than 0.02 L Total Protein Albumin Lipase - Imaging Impressions Chest X-Ray 12/26/17 15:43 CONCLUSION: No acute cardiopulmonary disease. Abdomen/Pelvis CT 12/26/17 17:54 CONCLUSION: 1. No definite acute abnormality seen. 2. Hepatic steatosis. 3. Renal cysts. 4. Mild atelectasis or consolidation at the lung bases. Chest CTA 12/26/17 17:54 CONCLUSION: 1. No pulmonary embolus. 2. Mild posterior lower lobe and posterior left lingular atelectasis or consolidation. <iDego Leon - Last Filed: 12/27/17 15:05> Assessment and Plan (1) Epigastric abdominal pain Status: Acute Code(s): R10.13 - Epigastric pain (2) History of stomach ulcers Status: Acute Code(s): Z87.19 - Personal history of other diseases of the digestive system - Plan Uncontrolled epigastric pain radiating into the left upper quadrant worse with breathing movement and rest. Onset of acute symptoms was approximately 3 days ago on a pain scale of 10 out of 10. Patient does have a history of ulcers last EGD was done back in 1991. Chronic constipation states bowel movements every 3 days. Colonoscopy in 1991 was unable to complete secondary to a fold in which the scope could not pass. Patient stays on a high-fiber diet avoid spicy foods. Labs show hemoglobin 14.4, bilirubin 0.6, AST 39, alkaline phosphatase 06/25/2025, CT scan does note hepatic steatosis, history patient has never smoked or drink any alcohol or done any illicit drugs Family history of colon polyps but no colon cancer. Hepatic steatosis per CT scan. Hold on liver ultrasound for now. We will check some liver labs. Plan Maintain n.p.o. for now Consent for EGD today Liver lab follow-up initiated Anti-medic Bowel regimen meds as needed PPI Carafate Further recommendations to follow after procedure Patient was seen per myself and Dr. Leon, this note was written on his behalf <Mylene Andrews - Last Filed: 12/27/17 11:20> (1) Epigastric abdominal pain Status: Acute Code(s): R10.13 - Epigastric pain (2) History of stomach ulcers Status: Acute Code(s): Z87.19 - Personal history of other diseases of the digestive system - Attending Attestation Seen and examined, Patient with Epigastric Abdominal pain that radiates to the LUQ. The Pain is sharp in nature, Severe 01/27. Consented for EGD today. Thank you for the consult. <Diego Leon - Last Filed: 12/27/17 15:05>
--- NOTE | 2017-12-27 11:14 | MB ---
cc: Bhupinder Claros MD DATE: 12/27/2017 CHIEF COMPLAINT: Abdominal pain, left inguinal hernia, chest pain. HISTORY OF PRESENT ILLNESS: The patient is a 62-year-old male who presents with acute onset of both abdominal and chest pain. The patient states his chest pain has been going on for 2 days and gotten progressively worse. He does note some shortness of breath and associated abdominal pain and left groin pain. He states the pain is worse with breathing, is better with lying down. Pain is sharp in nature. He came to the emergency department for further evaluation including a CT angio, which is negative for PE. Shows mild left atelectasis. He further had CT abdomen and pelvis showing renal cyst, hepatic steatosis, small left inguinal hernia containing fat. He had further chest workup with EKG within normal limits. Echo appears to be pending. Cardiology has evaluated him and does not feel further cardiac workup is warranted and has cleared him from their status. Surgery was consulted, the patient is known to me, and further evaluation of abdominal pain. On my exam, the patient states he has significant epigastric pain, left groin pain is present; however, is not quite as severe as the epigastric pain. The patient does have "history of bleeding gastric ulcers". He denies any significant amount of NSAID use or smoking. PAST MEDICAL HISTORY: Bipolar disease, deep venous thrombosis, inguinal hernia. PAST SURGICAL HISTORY: Facial surgery, knee surgery, lumbar fusion. MEDICATIONS: See EMR. SOCIAL HISTORY: Denies smoking, etoh, or ivda ALLERGIES: DIPHENHYDRAMINE. FAMILY HISTORY: Denies coronary artery disease or diabetes. REVIEW OF SYSTEMS: GENERAL: Denies fevers or chills. HEENT: Denies eye pain or ear pain. NECK: Denies swelling or pain. LUNGS: Complains of shortness of breath. Denies wheeze. CARDIAC: Continues to have some chest tightness. Denies palpitations. ABDOMEN: Complains of abdominal pain, some nausea. GENITOURINARY: Denies dysuria or hematuria. ENDOCRINE: Denies polyuria or polydipsia. INTEGUMENT: Denies any masses or lesions. PHYSICAL EXAMINATION: GENERAL: The patient in no acute distress. VITAL SIGNS: Temperature 98.3, pulse 67, respirations 16, blood pressure 111/61, saturation 96%. HEENT: Pupils equal, round, reactive. A well-healed left-sided facial incision. NECK: Supple. Trachea midline. LUNGS: Bilateral expansion. Clear. HEART: S1, S2. Regular. ABDOMEN: Soft, positive tenderness to palpation in the epigastric area. Positive palpable left inguinal hernia, reducible. Positive tenderness to palpation. EXTREMITIES: Warm and well perfused. NEUROLOGIC: GCS 15, 5/5 motor in all extremities. INTEGUMENT: No obvious masses or lesions. PSYCHIATRIC: Appropriate mood, appropriate judgment. LABORATORY AND DIAGNOSTIC DATA: WBC 10.3, hemoglobin 14.4, hematocrit 42.4, platelets 258. Sodium 142, potassium 4.1, chloride 108, BUN 7, creatinine 0.87, glucose 96. CT is reviewed by myself and CT angio chest, no evidence of PE, minimal atelectasis. CT abdomen and pelvis, small left inguinal hernia, steatosis, renal cyst. ASSESSMENT: The patient is a 62-year-old male, chest pain, abdominal pain, left inguinal hernia. PLAN: After a full workup, the patient with the above-mentioned issues. At this point, I discussed with team and nursing staff and the patient. The patient does have a left inguinal hernia that is tender to palpation. He further has epigastric pain. My concern is the patient may have some recurrence of his gastrointestinal disease and an ulcer. I recommend consultation to GI for evaluation and possible endoscopy. In regard to the patient's left inguinal hernia, if endoscopy is negative, then we will consider repair of left inguinal hernia either same hospital stay or as an outpatient depending on the recommendations from gastroenterology. In regard to the patient's chest pain and shortness of breath, cardiology appears to have done a thorough workup and have cleared him from a cardiac standpoint. MD JANAE Walton/JEFFERSON , 10:46 AM , 11:11 AM LORRI
[2017-12-27] MEDS: Sucralfate Liq 1 GM/10 ML UDC PO SCH ×2 (12:00→18:56)
[2017-12-27] MEDS ORDERED: Lidocaine PF 1% Inj 5 ML Syringe INFILTRATN ONE (12:00)
--- NOTE | 2017-12-27 15:48 | GIPROC ---
[facility] [address] [facility]. [facility], [id number] EGD PROCEDURE REPORT EXAM DATE: 12/27/2017 PATIENT NAME: Dami Ruffin MR #: [id number] BIRTHDATE: 1955 ATTENDING: Diego Leon MD ORDER #: [id number] DATABASE SUPPORT: Amador Ruiz and [place] STATUS: inpatient INDICATIONS: The patient is a 62 yr old male here for an EGD due to epigastric abdominal pain PROCEDURE PERFORMED: EGD w/ biopsy MEDICATIONS: None and Per Anesthesia. TOPICAL ANESTHETIC: none CONSENT: The patient understands the risks and benefits of the procedure and understands that these risks include, but are not limited to: sedation, allergic reaction, infection, perforation and/or bleeding. Alternative means of evaluation and treatment include, among others: physical exam, x-rays, and/or surgical intervention. The patient elects to proceed with this endoscopic procedure. medical equipment was checked for proper function. Hand hygiene and appropriate measures for infection prevention was taken. After the risks, benefits and alternatives of the procedure were thoroughly explained, Informed consent was verified, confirmed and timeout was successfully executed by the treatment team. The patient was anesthetized with topical anesthesia and the Pentax [id number] endoscope was introduced through the mouth and advanced to the second portion of the duodenum. Retroflexion was performed and was normal The gastroscope was then slowly withdrawn and removed. ESOPHAGUS: There was LA Class A esophagitis noted. STOMACH: There was mild gastritis in the entire examined stomach. Multiple biopsies were performed using cold forceps. Sample sent for histology. DUODENUM: The duodenal mucosa appeared normal in the bulb and second portion of the duodenum. ADVERSE EVENTS: There were no complications. IMPRESSIONS: 1. There was LA Class A esophagitis noted 2. There was mild gastritis in the entire examined stomach; multiple biopsies were performed 3. Normal duodenal mucosa in the bulb and second portion of the duodenum 4. Retroflexion was performed and was normal RECOMMENDATIONS: 1. Continue PPI 2. Await biopsy results. Biopsy results will not be ready for 7-10 days. If you don't hear from us in two weeks, call our office for biopsy results. PATIENT CONDITION: stable DISPOSITION: Observation REPEAT EXAM: NONE Diego Leon MD eSigned: Diego Leon MD 12/27/2017 3:47 PM cc: PATIENT NAME: Dami Ruffin Lamar MR#: [id number]
--- NOTE | 2017-12-27 17:07 | US ---
EXAM DATE: 12/27/2017 1:10 PM EDT AGE/SEX: 62 years / Male INDICATIONS: Abdominal pain. CLINICAL DATA: This is the patient's initial encounter. Patient reports that signs and symptoms have been present for 2 days and indicates a pain score of 2/10. MEDICAL/SURGICAL HISTORY: . Cancer. Carpal tunnel syndrome. Spinal fusion. Facial surgery. Kne e surgery. Hernia repair. COMPAR[place] [facility] [place]EL[place] W [place]AST, 12/26/2017. . MEASUREMENTS: Liver:__ 14.3 cm. Common Bile Duct:__ 5mm. Right Kidney:__ cm. FINDINGS: Liver: Increased echotexture. In addition, there are multiple hypoechoic areas within the hepatic par enchyma adjacent to the gallbladder with no corresponding abnormality on the CT performed one day ear lier.. Portal Vein: Hepatopedal flow seen in the main portal vein. 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 However, on the current study, the entire portal vein appears to be wi abdirashid patent. Common Duct: No intraluminal mass or stone visualized. Gallbladder: Gallbladder itself is sonographically intact without cholelithiasis Pancreas: Not well visualized. Right Kidney: Normal echotexture and cortical thickness. No mass or hydronephrosis. Benign-appearing cortical cyst in the anterior lower pole. Other: None. CONCLUSION: 1. Discrepant findings between the current ultrasound and a CT scan of the abdomen performed one day earlier. There are now hypoechoic/cystic areas in the hepatic parenchyma adjacent to the gallbladder fossa which were not present previously. Etiology is uncertain but I would consider entities such as developing hepatic abscess. MRI of the liver with and without gadolinium is suggested for further ch aracterization. 2. 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 Currently, the ultrasound shows the left portal vein to be widely patent with adequate blood flow. This area can also be evaluated on the MRI as well. 3. Diffuse hepatic fatty infiltration. Electronically signed by: Bob Mcmahon MD 12/27/2017 5:06 PM EDT
[2017-12-27] MEDS: HYDROmorphone PF Inj 2 MG/ML Vial IV.PUSH PRN (21:27)
[2017-12-28] MEDS: Sucralfate Liq 1 GM/10 ML UDC PO SCH ×4 (00:50→18:03)
[2017-12-28] MEDS: Gabapentin 300 MG Capsule PO SCH ×3 (03:32→23:05)
[2017-12-28] MEDS: HYDROmorphone PF Inj 2 MG/ML Vial IV.PUSH PRN ×3 (05:40→18:04)
[2017-12-28] MEDS: traZODone 100 MG Tablet PO SCH (08:19)
--- NOTE | 2017-12-28 08:49 | ECG ---
Date Performed: 12/27/2017 Time Performed: 01:38:24 PTAGE: 62 years EKG: SINUS BRADYCARDIA BORDERLINE ECG PREVIOUS TRACING : 12/26/2017 22.33 Since previous tracing, no significant change noted DOCTOR: Anish Lr Interpretating Date/Time 12/28/2017 08:48:23
--- NOTE | 2017-12-28 08:50 | ECG ---
Date Performed: 12/26/2017 Time Performed: 15:48:17 PTAGE: 62 years EKG: Sinus rhythm POSSIBLE LEFT ATRIAL ENLARGEMENT BORDERLINE ECG PREVIOUS TRACING : 10/03/2016 23.28 Since previous tracing, no significant change noted DOCTOR: Anish Lr Interpretating Date/Time 12/28/2017 08:49:04
--- NOTE | 2017-12-28 08:50 | ECG ---
Date Performed: 12/26/2017 Time Performed: 22:33:47 PTAGE: 62 years EKG: SINUS BRADYCARDIA MODERATE INTRAVENTRICULAR CONDUCTION DELAY BORDERLINE ECG PREVIOUS TRACING : 12/26/2017 15.48 Since previous tracing, no significant change noted DOCTOR: Anish Lr Interpretating Date/Time 12/28/2017 08:48:54
--- NOTE | 2017-12-28 08:56 | P.PN ---
Subjective Interval history: Follow-up for epigastric pain. Patient reports continued constant epigastric pain with radiation to the left upper quadrant, rated 10/10. He denies any nausea or vomiting this morning, but did have an episode of vomiting this afternoon. Denies any fevers or chills. He has not had a bowel movement in 3 4 days now. Denies any chest pains. Denies any other medical complaints at this time. Physical Exam Vital signs: Vital Signs 12/27/17 11:44 12/27/17 15:15 12/27/17 18:41 Temperature 98.6 F 97.8 F Pulse Rate 67 67 70 Respiratory Rate 20 18 Blood Pressure 124/68 164/80 H Pulse Oximetry 98 96 12/27/17 20:00 12/27/17 23:36 12/28/17 00:00 Temperature 98.3 F Pulse Rate 62 65 62 Respiratory Rate 17 17 Blood Pressure 143/74 H 129/73 Pulse Oximetry 94 L 97 12/28/17 04:00 12/28/17 07:59 Temperature 98.5 F 97.8 F Pulse Rate 56 L 63 Respiratory Rate 17 16 Blood Pressure 130/71 134/77 Pulse Oximetry 97 97 Intake & Output 12/27/17 12/28/17 12/28/17 18:59 06:59 18:59 Other: # Voids 1 Narrative: GENERAL: Well-nourished, well-developed male patient in [facility]. SKIN: Warm and dry. No rash. HEENT: Normocephalic. Atraumatic. Pupils equal and round. Mucous membranes pink and moist. CARDIOVASCULAR: Regular rate and rhythm. No murmur appreciated. RESPIRATORY: No accessory muscle use. Clear to auscultation. Breath sounds equal bilaterally. GASTROINTESTINAL: Abdomen soft, nondistended, tender to palpation in epigastric area and left upper quadrant. Normoactive bowel sounds x4. MUSCULOSKELETAL: No obvious deformities. Extremities without clubbing, cyanosis , or edema. NEUROLOGICAL: Awake and alert. No obvious cranial nerve deficits. Motor grossly within normal limits. Moving all extremities spontaneously. Normal speech. PSYCHIATRIC: Appropriate mood and affect; insight and judgment normal. Results - Labs CBC & Chem 7: 12/26/17 16:00 12/26/17 16:00 Laboratory Results - last 24 hr 12/27/17 17:25 Tumor Marker AFP 3.4 - Imaging Impressions Liver Ultrasound 12/27/17 00:00 CONCLUSION: 1. Discrepant findings between the current ultrasound and a CT scan of the abdomen performed one day earlier. There are now hypoechoic/cystic areas in the hepatic parenchyma adjacent to the gallbladder fossa which were not present previously. Etiology is uncertain but I would consider entities such as developing hepatic abscess. MRI of the liver with and without gadolinium is suggested for further characterization. 2. 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 Currently, the ultrasound shows the left portal vein to be widely patent with adequate blood flow. This area can also be evaluated on the MRI as well. 3. Diffuse hepatic fatty infiltration. - Procedures 12/27/17 -EGD by Dr. Leon: 1. There was LA Class A esophagitis noted 2. There was mild gastritis in the entire examined stomach; multiple biopsies were performed 3. Normal duodenal mucosa in the bulb and second portion of the duodenum 4. Retroflexion was performed and was normal Assessment and Plan - Plan 62-year-old male presents with 2 day history of epigastric and LUQ pain Epigastric Pain: work up in progress, EGD showed esophagitis/gastritis; MRCP concern for developing abscess in liver -Lipase and LFTs mostly wnl -Abdominal CT reviewed, shows no definite acute abnormality; hepatic steatosis -Liver U/S 12/27 showed hypoechoic/cystic areas in the liver; consider hepatic abscess; recommends MRI -EGD 12/27 showed esophagitis, mild gastritis -MRCP 12/28 shows abnormal liver, considerations include venous thrombosis and developing abscess; no gallstones and common duct is normal -GI consulted, appreciate recommendations -General surgery consulted, appreciate assistance -Continue protonix 40mg bid and Carafate 1gm po qid -Supportive treatment with IVF, antiemetics, and pain control prn -With concern for liver abscess; start on antibiotics with IV Zosyn -Monitor closely Left Inguinal Hernia: tender to palpation -General surgery consulted, appreciate recommendations Atypical Chest Pain: likely secondary to above, initially admitted to [facility] -ACS was ruled out with negative serial cardiac enzymes x3 and EKG without acute ischemic changes -Chest CTA negative for PE; shows atelectasis All other medical conditions stable, continue home medication as appropriate. DVT Prophylaxis: teds/SCDs; avoid chemoprophylaxis with possible upcoming procedure
[2017-12-28] MEDS ORDERED: Gadobutrol PF 7.5 MMOL/7.5 ML Vial (for RAD) IV.SIG ONE (10:25)
[2017-12-28] MEDS: Pantoprazole Inj 40 MG Vial IV.PUSH SCH ×2 (10:27→23:06)
--- NOTE | 2017-12-28 11:26 | MR ---
EXAM DATE: 12/28/2017 11:05 AM EDT AGE/SEX: 62 years / Male INDICATIONS: Abdominal pain. CLINICAL DATA: This is the patient's initial encounter. Patient reports that signs and symptoms have been present for 3 days and indicates a pain score of 8/10. MEDICAL/SURGICAL HISTORY: Hypertension. Fusion, lumbar. Carpal tunnel syndrome. COMPARISON: [facility] [place], CT ABDOMEN & PELVIS W CONTRAST, 12/26/2017. . TECHNIQUE: Multisequence, multiplanar MRI examination was performed without contrast and after the in travenous administration of 7.5 ml Gadavist (gadobutrol) contrast as a single exam dose. FINDINGS: Liver: The liver is abnormal with abnormal findings about the portal vein and the left lobe of the l iver. Formal MRI of the liver suggested. Common Bile Duct: The common bile duct is normal in caliber No filling defects or obstructing lesio ns are identified. Gallbladder: The gallbladder is normal with no evidence for cholelithiasis, gallbladder wall thicken ing, or pericholecystic fluid. Pancreas: The pancreas appears normal in signal with no focal parenchymal abnormalities. The pancrea tic duct is normal in caliber with no filling defects, or obstructing lesions identified. CONCLUSION: 1. Abnormal liver. Considerations would include venous thrombosis and developing abscess. 2. MRI of the liver with contrast is suggested. 3. There are no gallstones. 4. Common duct is normal. Electronically signed by: Angel Fountain MD 12/28/2017 11:25 AM EDT
[2017-12-28 12:36] LABS: Albumin 4.1 g/dL (3.4-5.0)
[2017-12-28 12:38] LABS: Total Protein 7.7 g/dL (6.4-8.2)
[2017-12-28] MEDS: Piperacil/Tazo 4.5 GM Premix 4.5 GM/100 ML BAG IV.SIG SCH ×2 (15:55→23:04)
--- NOTE | 2017-12-28 16:03 | P.PNGI ---
Subjective Interval history: Resting in the bed continues to have some nausea and did vomit about 2 hours ago states that made him feel better He is sipping on a little nida cally Still has epigastric tenderness to light palpation radiating into the left upper quadrant <Mylene Andrews - Last Filed: 12/28/17 15:50> Physical Exam Vital signs: Vital Signs 12/27/17 18:41 12/27/17 20:00 12/27/17 23:36 Temperature 97.8 F 98.3 F Pulse Rate 70 62 65 Respiratory Rate 18 17 17 Blood Pressure 164/80 H 143/74 H 129/73 Pulse Oximetry 96 94 L 97 12/28/17 00:00 12/28/17 04:00 12/28/17 07:59 Temperature 98.5 F 97.8 F Pulse Rate 62 56 L 63 Respiratory Rate 17 16 Blood Pressure 130/71 134/77 Pulse Oximetry 97 97 12/28/17 08:02 12/28/17 11:29 12/28/17 12:00 Temperature 97.4 F L Pulse Rate 57 L 64 64 Respiratory Rate 16 Blood Pressure 142/76 H Pulse Oximetry 96 Intake & Output 12/27/17 12/28/17 12/28/17 18:59 06:59 18:59 Other: # Voids 1 # Emeses 1 - Constitutional moderate distress - Routine HEENT Exam Head: Present: normocephalic, atraumatic Eye: Present: EOMI ENT: Present: mucous membranes moist - Routine Neck Exam Present: supple - Routine Respiratory Exam Present: CTA bilaterally (Even unlabored) - Routine Cardiovascular Exam Present: RRR - Routine Abdominal Exam Present: normoactive bowel sounds, tenderness (Positive bowel sounds moderate amount of tenderness to the epigastric region), guarding ( with pain radiating into the left upper quadrant mild) - Routine Skin Exam Present: intact - Routine Neurological Exam Present: alert - Detailed Neurological Exam: Coma Scale Verbal Response: Oriented - Routine Psychiatric Exam Present: anxious <Mylene Andrews - Last Filed: 12/28/17 15:50> Vital signs: Vital Signs 12/27/17 23:36 12/28/17 00:00 12/28/17 04:00 Temperature 98.3 F 98.5 F Pulse Rate 65 62 56 L Respiratory Rate 17 17 Blood Pressure 129/73 130/71 Pulse Oximetry 97 97 12/28/17 07:59 12/28/17 08:02 12/28/17 11:29 Temperature 97.8 F Pulse Rate 63 57 L 64 Respiratory Rate 16 Blood Pressure 134/77 Pulse Oximetry 97 12/28/17 12:00 12/28/17 16:00 12/28/17 17:13 Temperature 97.4 F L 97.8 F Pulse Rate 64 71 72 Respiratory Rate 16 16 Blood Pressure 142/76 H 135/62 Pulse Oximetry 96 95 Intake & Output 12/28/17 12/28/17 12/29/17 06:59 18:59 06:59 Intake Total 100 / 100 Balance 100 / 100 Intake: IV 100 / 100 Zosyn 4.5 GM Premix 4.5 gm In 100 / 100 100 ml @ 200 mls/hr IV.SIG Q6H [facility] Rx#:[id number] Other: # Emeses 1 <Diego Leon A - Last Filed: 12/28/17 21:07> Results - Labs CBC & Chem 7: 12/26/17 16:00 12/26/17 16:00 Laboratory Results - last 24 hr 12/27/17 12/28/17 17:25 11:10 Total Bilirubin 1.0 Direct Bilirubin 0.3 H Indirect Bilirubin 0.7 AST 35 ALT 51 Alkaline Phosphatase 128 H Total Protein 7.7 Albumin 4.1 Amylase 28 Tumor Marker AFP 3.4 - Imaging Impressions Liver Ultrasound 12/27/17 00:00 CONCLUSION: 1. Discrepant findings between the current ultrasound and a CT scan of the abdomen performed one day earlier. There are now hypoechoic/cystic areas in the hepatic parenchyma adjacent to the gallbladder fossa which were not present previously. Etiology is uncertain but I would consider entities such as developing hepatic abscess. MRI of the liver with and without gadolinium is suggested for further characterization. 2. 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 Currently, the ultrasound shows the left portal vein to be widely patent with adequate blood flow. This area can also be evaluated on the MRI as well. 3. Diffuse hepatic fatty infiltration. Cholangiopancreatography MRI 12/28/17 00:00 CONCLUSION: 1. Abnormal liver. Considerations would include venous thrombosis and developing abscess. 2. MRI of the liver with contrast is suggested. 3. There are no gallstones. 4. Common duct is normal. - Procedures 12/27/17 -EGD by Dr. Leon: 1. There was LA Class A esophagitis noted 2. There was mild gastritis in the entire examined stomach; multiple biopsies were performed 3. Normal duodenal mucosa in the bulb and second portion of the duodenum 4. Retroflexion was performed and was normal <Mylene Andrews - Last Filed: 12/28/17 15:50> - Labs CBC & Chem 7: 12/26/17 16:00 12/26/17 16:00 Laboratory Results - last 24 hr 12/28/17 11:10 Total Bilirubin 1.0 Direct Bilirubin 0.3 H Indirect Bilirubin 0.7 AST 35 ALT 51 Alkaline Phosphatase 128 H Total Protein 7.7 Albumin 4.1 Amylase 28 - Imaging Impressions Cholangiopancreatography MRI 12/28/17 00:00 CONCLUSION: 1. Abnormal liver. Considerations would include venous thrombosis and developing abscess. 2. MRI of the liver with contrast is suggested. 3. There are no gallstones. 4. Common duct is normal. <Diego Leon - Last Filed: 12/28/17 21:07> Assessment and Plan (1) Epigastric abdominal pain Status: Acute Code(s): R10.13 - Epigastric pain (2) History of stomach ulcers Status: Acute Code(s): Z87.19 - Personal history of other diseases of the digestive system - Plan Uncontrolled epigastric pain radiating into the left upper quadrant worse with breathing movement and rest. Onset of acute symptoms was approximately 3 days ago on a pain scale of 10 out of 10. Patient does have a history of ulcers last EGD was done back in 1991. Chronic constipation states bowel movements every 3 days. Colonoscopy in 1991 was unable to complete secondary to a fold in which the scope could not pass. Patient stays on a high-fiber diet avoid spicy foods. Labs show hemoglobin 14.4, bilirubin 0.6, AST 39, alkaline phosphatase 06/25/2025, CT scan does note hepatic steatosis, history patient has never smoked or drink any alcohol or done any illicit drugs Family history of colon polyps but no colon cancer. Hepatic steatosis per CT scan. Hold on liver ultrasound for now. We will check some liver labs. 12/28/2017 patient had MRCP this a.m. and according to radiology team MRI of the liver was also scanned. Radiologist is reviewing pictures again and plans an addendum to the MRCP results. There is questionable abscess versus thrombosis seen only MRCP exam. Patient is being also followed per Dr. Claros , pending possible hernia repair which had already been planned for the near future. Labs show bilirubin 1 AST 35 ALT 51, alkaline phosphatase 128 alpha-fetoprotein 3.4 other liver lab workups are pending. Amylase 28. Currently holding MRI order of the liver. Noted common bile duct okay and gallbladder okay. Patient still has epigastric pain radiating to the left upper quadrant symptomatic with symptoms of nausea and vomiting. Patient is attempting to sit on some nida cally but maintaining minimal liquids for now. EGD, films available but pending report, 12/27/2017 Plan Maintain , mild clear liquids Liver lab follow-up pending Anti-medic Bowel regimen meds as needed PPI Carafate Further recommendations to follow based on patient's MRCP findings and symptoms. Patient was seen per myself and Dr. Leon, this note was written on his behalf <Mylene Andrews - Last Filed: 12/28/17 15:50> (1) Epigastric abdominal pain Status: Acute Code(s): R10.13 - Epigastric pain (2) History of stomach ulcers Status: Acute Code(s): Z87.19 - Personal history of other diseases of the digestive system - Attending Attestation Seen and examined, endoscopy findings discussed. Biopsies pending. If symptoms persists will consider colonoscopy although its unlikely source of epigastric pain. Further recommendations to follow. <Diego eLon - Last Filed: 12/28/17 21:07>
[2017-12-28] MEDS: Montelukast 10 MG Tablet PO SCH (18:04)
[2017-12-29] MEDS: Sucralfate Liq 1 GM/10 ML UDC PO SCH ×4 (00:22→19:41)
[2017-12-29] MEDS: Piperacil/Tazo 4.5 GM Premix 4.5 GM/100 ML BAG IV.SIG SCH ×4 (04:20→20:38)
[2017-12-29 07:24] LABS: Baso % (Auto) 0.4 % (0.0-2.0); Eos # (Auto) 0.1 th/mm3 (0.0-0.4); Eos % (Auto) 1.2 % (0.0-4.0); Hematocrit 45.7 % (39.0-51.0); Hemoglobin 15.5 gm/dL (13.0-17.0); Lymph # (Auto) 1.8 th/mm3 (1.0-4.8); Lymph % (Auto) 16.4 % (9.0-44.0); Mean Corpuscular Hemoglobin 31.8 pg (27.0-34.0); Mean Corpuscular Volume 93.3 fL (80.0-100.0); Mean Platelet Volume 8.9 fL (7.0-11.0); Mono # (Auto) 1.1 th/mm3 (0.0-0.9); Mono % (Auto) 9.7 % (0.0-8.0); Neut % (Auto) 72.3 % (16.0-70.0); Platelet Count 297 th/mm3 (150-450); Red Blood Count 4.89 mil/mm3 (4.50-5.90); Red Cell Distribution Width 13.8 % (11.6-17.2)
[2017-12-29 07:52] LABS: Albumin 3.6 g/dL (3.4-5.0); Anion Gap 12 meq/L (5-15); Blood Urea Nitrogen 11 mg/dL (7-18); Calcium 9.7 mg/dL (8.5-10.1); Carbon Dioxide 24.6 meq/L (21.0-32.0); Chloride 103 meq/L (98-107); Glomerular Filtration Rate 78 mL/min (>89); Glucose,Random 82 mg/dL (74-106); Potassium 3.8 meq/L (3.5-5.1); Sodium 140 meq/L (136-145)
[2017-12-29 07:53] LABS: Alanine Aminotransferase 49 U/L (12-78); Aspartate Aminotransferase 31 U/L (15-37)
[2017-12-29 07:56] LABS: Alkaline Phosphatase 121 U/L (45-117); Total Protein 7.6 g/dL (6.4-8.2)
--- NOTE | 2017-12-29 09:09 | P.PN ---
Subjective Interval history: Follow up for epigastric pain, concern for liver abscess. The patient reports overall feeling better today. He had 4-5 episodes of vomiting yesterday, none today. He was able to tolerate some oral intake. Epigastric pain improving however spin tank tender. Denies fevers/chills/sweats. Denies any other medical complaints at this time. Physical Exam Vital signs: Vital Signs 12/28/17 11:29 12/28/17 12:00 12/28/17 16:00 Temperature 97.4 F L 97.8 F Pulse Rate 64 64 71 Respiratory Rate 16 16 Blood Pressure 142/76 H 135/62 Pulse Oximetry 96 95 12/28/17 17:13 12/28/17 20:00 12/29/17 00:00 Temperature 97.6 F 98.2 F Pulse Rate 72 79 103 H Respiratory Rate 16 16 Blood Pressure 125/69 141/71 H Pulse Oximetry 96 95 12/29/17 04:00 12/29/17 08:00 Temperature 98.1 F 97.6 F Pulse Rate 87 76 Respiratory Rate 17 16 Blood Pressure 129/62 125/69 Pulse Oximetry 96 96 Intake & Output 12/28/17 12/29/17 12/29/17 18:59 06:59 18:59 Intake Total 100 / 100 200 / 200 Balance 100 / 100 200 / 200 Intake: IV 100 / 100 200 / 200 Zosyn 4.5 GM Premix 4.5 gm In 100 / 100 200 / 200 100 ml @ 200 mls/hr IV.SIG Q6H [facility] Rx#:[id number] Other: # Emeses 1 Narrative: GENERAL: Well-nourished, well-developed male patient in [facility]. SKIN: Warm and dry. No rash. HEENT: Normocephalic. Atraumatic. Pupils equal and round. Mucous membranes pink and moist. CARDIOVASCULAR: Regular rate and rhythm. No murmur appreciated. RESPIRATORY: No accessory muscle use. Clear to auscultation. Breath sounds equal bilaterally. GASTROINTESTINAL: Abdomen soft, nondistended, tender to palpation in epigastric area and bilateral upper quadrants. Normoactive bowel sounds x4. MUSCULOSKELETAL: No obvious deformities. Extremities without clubbing, cyanosis , or edema. NEUROLOGICAL: Awake and alert. No obvious cranial nerve deficits. Motor grossly within normal limits. Moving all extremities spontaneously. Normal speech. PSYCHIATRIC: Appropriate mood and affect; insight and judgment normal. Results - Labs CBC & Chem 7: 12/29/17 06:05 12/29/17 06:05 Laboratory Results - last 24 hr 12/28/17 12/29/17 12/29/17 11:10 06:05 06:05 WBC 11.0 RBC 4.89 Hgb 15.5 Hct 45.7 MCV 93.3 MCH 31.8 MCHC 34.0 RDW 13.8 Plt Count 297 MPV 8.9 Neut % (Auto) 72.3 H Lymph % (Auto) 16.4 [place] % (Auto) 9.7 H Eos % (Auto) 1.2 Baso % (Auto) 0.4 Neut # (Auto) 8.0 H Lymph # (Auto) 1.8 [place] # (Auto) 1.1 H Eos # (Auto) 0.1 Baso # (Auto) 0.0 WBC Differential . Differential Comment Auto diff final Sodium 140 Potassium 3.8 Chloride 103 Carbon Dioxide 24.6 Anion Gap 12 BUN 11 Creatinine 0.97 Estimated GFR 78 L Random Glucose 82 Calcium 9.7 Total Bilirubin 1.0 0.8 Direct Bilirubin 0.3 H Indirect Bilirubin 0.7 AST 35 31 ALT 51 49 Alkaline Phosphatase 128 H 121 H Total Protein 7.7 7.6 Albumin 4.1 3.6 Amylase 28 - Imaging Impressions Cholangiopancreatography MRI 12/28/17 00:00 CONCLUSION: 1. Abnormal liver. Considerations would include venous thrombosis and developing abscess. 2. MRI of the liver with contrast is suggested. 3. There are no gallstones. 4. Common duct is normal. - Procedures 12/27/17 -EGD by Dr. Leon: 1. There was LA Class A esophagitis noted 2. There was mild gastritis in the entire examined stomach; multiple biopsies were performed 3. Normal duodenal mucosa in the bulb and second portion of the duodenum 4. Retroflexion was performed and was normal Assessment and Plan - Plan 62-year-old male presents with 2 day history of epigastric and LUQ pain Epigastric Pain: work up in progress, EGD showed esophagitis/gastritis; MRCP concern for developing abscess in liver -Lipase and LFTs mostly wnl -Abdominal CT reviewed, shows no definite acute abnormality; hepatic steatosis -Liver U/S 12/27 showed hypoechoic/cystic areas in the liver; consider hepatic abscess; recommends MRI -EGD 12/27 showed esophagitis, mild gastritis -MRCP 12/28 shows abnormal liver, considerations include venous thrombosis and developing abscess; no gallstones and common duct is normal -GI consulted, appreciate recommendations -General surgery consulted, appreciate assistance -Continue protonix 40mg bid and Carafate 1gm po qid -Supportive treatment with IVF, antiemetics, and pain control prn -With concern for liver abscess; started on antibiotics with IV Zosyn -Monitor closely -GI has signed off, recommends outpatient colonoscopy -Awaiting further recommendations from general surgery regarding possible liver abscess Left Inguinal Hernia: tender to palpation -General surgery consulted, appreciate recommendations Atypical Chest Pain: likely secondary to above, initially admitted to [facility] -ACS was ruled out with negative serial cardiac enzymes x3 and EKG without acute ischemic changes -Chest CTA negative for PE; shows atelectasis All other medical conditions stable, continue home medication as appropriate. DVT Prophylaxis: teds/SCDs; avoid chemoprophylaxis with possible upcoming procedure Discharge Planning: Awaiting further recommendations from general surgery.
[2017-12-29] MEDS: Morphine Inj 4 MG/ML Vial IV.PUSH PRN ×2 (09:47→19:40)
[2017-12-29] MEDS: Gabapentin 300 MG Capsule PO SCH ×2 (09:50→20:39)
[2017-12-29] MEDS: traZODone 100 MG Tablet PO SCH (09:51)
[2017-12-29] MEDS: Pantoprazole Inj 40 MG Vial IV.PUSH SCH ×2 (09:52→21:22)
--- NOTE | 2017-12-29 10:27 | P.PNGI ---
Subjective Interval history: Pt resting in bed. Eating liquids for breakfast. Reports nausea and last episode of emesis last night. Continued epigastric discomfort. Son at bedside. <Beatrice Bates - Last Filed: 12/29/17 10:18> Physical Exam Vital signs: Vital Signs 12/28/17 11:29 12/28/17 12:00 12/28/17 16:00 Temperature 97.4 F L 97.8 F Pulse Rate 64 64 71 Respiratory Rate 16 16 Blood Pressure 142/76 H 135/62 Pulse Oximetry 96 95 12/28/17 17:13 12/28/17 20:00 12/29/17 00:00 Temperature 97.6 F 98.2 F Pulse Rate 72 79 103 H Respiratory Rate 16 16 Blood Pressure 125/69 141/71 H Pulse Oximetry 96 95 12/29/17 04:00 12/29/17 08:00 Temperature 98.1 F 97.6 F Pulse Rate 87 76 Respiratory Rate 17 16 Blood Pressure 129/62 125/69 Pulse Oximetry 96 96 Intake & Output 12/28/17 12/29/17 12/29/17 18:59 06:59 18:59 Intake Total 100 / 100 200 / 200 Balance 100 / 100 200 / 200 Intake: IV 100 / 100 200 / 200 Zosyn 4.5 GM Premix 4.5 gm In 100 / 100 200 / 200 100 ml @ 200 mls/hr IV.SIG Q6H [facility] Rx#:[id number] Other: # Emeses 1 - Constitutional no acute distress - Routine HEENT Exam Head: Present: normocephalic, atraumatic - Routine Respiratory Exam Absent: accessory muscle use - Routine Abdominal Exam Present: soft, normoactive bowel sounds, tenderness (epigastric tenderness ). Absent: distended, rebound, guarding, firm - Routine Neurological Exam Present: alert, oriented X3 <Beatrice Bates - Last Filed: 12/29/17 10:18> Vital signs: Vital Signs 12/28/17 11:29 12/28/17 12:00 12/28/17 16:00 Temperature 97.4 F L 97.8 F Pulse Rate 64 64 71 Respiratory Rate 16 16 Blood Pressure 142/76 H 135/62 Pulse Oximetry 96 95 12/28/17 17:13 12/28/17 20:00 12/29/17 00:00 Temperature 97.6 F 98.2 F Pulse Rate 72 79 103 H Respiratory Rate 16 16 Blood Pressure 125/69 141/71 H Pulse Oximetry 96 95 12/29/17 04:00 12/29/17 08:00 Temperature 98.1 F 97.6 F Pulse Rate 87 76 Respiratory Rate 17 16 Blood Pressure 129/62 125/69 Pulse Oximetry 96 96 Intake & Output 12/28/17 12/29/17 12/29/17 18:59 06:59 18:59 Intake Total 100 / 100 200 / 200 100 / 100 Balance 100 / 100 200 / 200 100 / 100 Intake: IV 100 / 100 200 / 200 100 / 100 Zosyn 4.5 GM Premix 4.5 gm In 100 / 100 200 / 200 100 / 100 100 ml @ 200 mls/hr IV.SIG Q6H [facility] Rx#:[id number] Other: # Emeses 1 <Diego Leon A - Last Filed: 12/29/17 11:05> Results - Labs CBC & Chem 7: 12/29/17 06:05 12/29/17 06:05 Laboratory Results - last 24 hr 12/28/17 12/29/17 12/29/17 11:10 06:05 06:05 WBC 11.0 RBC 4.89 Hgb 15.5 Hct 45.7 MCV 93.3 MCH 31.8 MCHC 34.0 RDW 13.8 Plt Count 297 MPV 8.9 Neut % (Auto) 72.3 H Lymph % (Auto) 16.4 [place] % (Auto) 9.7 H Eos % (Auto) 1.2 Baso % (Auto) 0.4 Neut # (Auto) 8.0 H Lymph # (Auto) 1.8 [place] # (Auto) 1.1 H Eos # (Auto) 0.1 Baso # (Auto) 0.0 WBC Differential . Differential Comment Auto diff final Sodium 140 Potassium 3.8 Chloride 103 Carbon Dioxide 24.6 Anion Gap 12 BUN 11 Creatinine 0.97 Estimated GFR 78 L Random Glucose 82 Calcium 9.7 Total Bilirubin 1.0 0.8 Direct Bilirubin 0.3 H Indirect Bilirubin 0.7 AST 35 31 ALT 51 49 Alkaline Phosphatase 128 H 121 H Total Protein 7.7 7.6 Albumin 4.1 3.6 Amylase 28 - Imaging Impressions Cholangiopancreatography MRI 12/28/17 00:00 CONCLUSION: 1. Abnormal liver. Considerations would include venous thrombosis and developing abscess. 2. MRI of the liver with contrast is suggested. 3. There are no gallstones. 4. Common duct is normal. - Procedures 12/27/17 -EGD by Dr. Leon: 1. There was LA Class A esophagitis noted 2. There was mild gastritis in the entire examined stomach; multiple biopsies were performed 3. Normal duodenal mucosa in the bulb and second portion of the duodenum 4. Retroflexion was performed and was normal <Beatrice Bates - Last Filed: 12/29/17 10:18> - Labs CBC & Chem 7: 12/29/17 06:05 12/29/17 06:05 Laboratory Results - last 24 hr 12/28/17 12/29/17 12/29/17 11:10 06:05 06:05 WBC 11.0 RBC 4.89 Hgb 15.5 Hct 45.7 MCV 93.3 MCH 31.8 MCHC 34.0 RDW 13.8 Plt Count 297 MPV 8.9 Neut % (Auto) 72.3 H Lymph % (Auto) 16.4 [place] % (Auto) 9.7 H Eos % (Auto) 1.2 Baso % (Auto) 0.4 Neut # (Auto) 8.0 H Lymph # (Auto) 1.8 [place] # (Auto) 1.1 H Eos # (Auto) 0.1 Baso # (Auto) 0.0 WBC Differential . Differential Comment Auto diff final Sodium 140 Potassium 3.8 Chloride 103 Carbon Dioxide 24.6 Anion Gap 12 BUN 11 Creatinine 0.97 Estimated GFR 78 L Random Glucose 82 Calcium 9.7 Total Bilirubin 1.0 0.8 Direct Bilirubin 0.3 H Indirect Bilirubin 0.7 AST 35 31 ALT 51 49 Alkaline Phosphatase 128 H 121 H Total Protein 7.7 7.6 Albumin 4.1 3.6 Amylase 28 - Imaging Impressions Cholangiopancreatography MRI 12/28/17 00:00 CONCLUSION: 1. Abnormal liver. Considerations would include venous thrombosis and developing abscess. 2. MRI of the liver with contrast is suggested. 3. There are no gallstones. 4. Common duct is normal. <Diego Leon - Last Filed: 12/29/17 11:05> Assessment and Plan (1) Epigastric abdominal pain Status: Acute Code(s): R10.13 - Epigastric pain (2) History of stomach ulcers Status: Acute Code(s): Z87.19 - Personal history of other diseases of the digestive system - Plan Assessment: - Epigastric pain that began 3 days prior to admission with reports of gastric ulcers on last EGD which was done in 1991 S/P EGD (12/27) Class A esophagitis noted. Mild gastritis in the entire examined stomach, multiple biopsies. Normal duodenal mucosa in the bulb and second portion of the duodenum. Biopsy pending. - Chronic constipation states bowel movements every 3 days. Colonoscopy in 1991 was unable to complete secondary to a fold in which the scope could not pass. Patient stays on a high-fiber diet avoid spicy foods. - Elevated LFTs AST-39 ALT-57 Alk phos-126 T bili-0.6 Pt denies ETOH US liver (12/27) Discrepant findings between the current ultrasound and a CT scan of the abdomen performed one day earlier. There are now hypoechoic/cystic areas in the hepatic parenchyma adjacent to the gallbladder fossa which were not present previously. Etiology is uncertain but I would consider entities such as developing hepatic abscess. 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 Currently, the ultrasound shows the left portal vein to be widely patent with adequate blood flow. This area can also be evaluated on the MRI as well. Diffuse hepatic fatty infiltration. MRCP W and WO contrast (12/28) Abnormal liver. Considerations would include venous thrombosis and developing abscess. MRI of the liver with contrast is suggested. There are no gallstones. Common duct is normal. (12/29) Pt resting in bed, states nausea and vomiting last night, now trying to take in some liquids. No BM but has not been eating. Continued epigastric pain. Awaiting GS recommendations regarding MRCP findings. Plan EGD biopsy pending- follow up in office regarding biopsy Surgery following- appreciate recommendations regarding ? liver abscess- could be cause for continued epigastric pain Bowel regimen Advance diet as tolerated Protonix Sucralfate GI will sign off, ? liver abscess per GS Have pt follow up with GI after DC Patient has been seen and examined by myself and Dr. Leon and this note is written on his behalf <Beatrice Bates - Last Filed: 12/29/17 10:18> (1) Epigastric abdominal pain Status: Acute Code(s): R10.13 - Epigastric pain (2) History of stomach ulcers Status: Acute Code(s): Z87.19 - Personal history of other diseases of the digestive system - Attending Attestation Agree with above plan, will need colonoscopy that can be done as out patient. Please notify us if needed again during this hospitalization. <Diego Leno - Last Filed: 12/29/17 11:05>
[2017-12-29 13:44] LABS: Smooth Muscle Total Auto Abs Negative (Negative)
[2017-12-29] MEDS: HYDROmorphone PF Inj 2 MG/ML Vial IV.PUSH PRN (15:54)
[2017-12-29] MEDS: Montelukast 10 MG Tablet PO SCH (19:40)
[2017-12-29] MEDS ORDERED: traZODone 100 MG Tablet PO SCH (21:00)
[2017-12-30] MEDS: Sucralfate Liq 1 GM/10 ML UDC PO SCH ×3 (00:19→13:03)
[2017-12-30] MEDS: HYDROmorphone PF Inj 2 MG/ML Vial IV.PUSH PRN ×2 (00:25→13:03)
[2017-12-30] MEDS: Piperacil/Tazo 4.5 GM Premix 4.5 GM/100 ML BAG IV.SIG SCH ×3 (03:55→14:20)
[2017-12-30 08:41] VITALS: TEMP 98.2
[2017-12-30 08:44] VITALS: O2SAT 96
[2017-12-30] MEDS: Gabapentin 300 MG Capsule PO SCH (09:21)
[2017-12-30] MEDS: Pantoprazole Inj 40 MG Vial IV.PUSH SCH (09:22)
[2017-12-30] MEDS: Morphine Inj 4 MG/ML Vial IV.PUSH PRN (09:22)
--- NOTE | 2017-12-30 09:53 | P.PN ---
Subjective Interval history: Follow up for epigastric pain. The patient reports feeling better today. Epigastric pain improving. He tolerated liquid diet, requesting to try solid foods. Denies any further nausea/vomiting. Denies any fevers/chills. Has no other medical complaints at this time. Physical Exam Vital signs: Vital Signs 12/29/17 12:00 12/29/17 16:00 12/29/17 20:00 Temperature 98.5 F 97.8 F 98.2 F Pulse Rate 78 78 64 Respiratory Rate 16 17 16 Blood Pressure 116/64 127/70 136/74 Pulse Oximetry 94 L 96 96 12/30/17 00:00 12/30/17 03:58 12/30/17 08:39 Temperature 98.8 F 98.6 F 98.2 F Pulse Rate 80 72 63 Respiratory Rate 16 16 20 Blood Pressure 124/58 L 107/55 L 145/72 H Pulse Oximetry 95 96 98 12/30/17 08:43 Temperature Pulse Rate 72 Respiratory Rate 20 Blood Pressure 106/54 L Pulse Oximetry 96 Intake & Output 12/29/17 12/30/17 12/30/17 18:59 06:59 18:59 Intake Total 200 / 200 200 / 200 Balance 200 / 200 200 / 200 Intake: IV 200 / 200 200 / 200 Zosyn 4.5 GM Premix 4.5 gm In 200 / 200 200 / 200 100 ml @ 200 mls/hr IV.SIG Q6H [facility] Rx#:[id number] Other: Date of Last Bowel Movement 12/26/17 12/26/17 Narrative: GENERAL: Well-nourished, well-developed male patient in [facility]. SKIN: Warm and dry. No rash. HEENT: Normocephalic. Atraumatic. Pupils equal and round. Mucous membranes pink and moist. CARDIOVASCULAR: Regular rate and rhythm. No murmur appreciated. RESPIRATORY: No accessory muscle use. Clear to auscultation. Breath sounds equal bilaterally. GASTROINTESTINAL: Abdomen soft, nondistended, minimal epigastric TTP, much improved. Normoactive bowel sounds x4. MUSCULOSKELETAL: No obvious deformities. Extremities without clubbing, cyanosis , or edema. NEUROLOGICAL: Awake and alert. No obvious cranial nerve deficits. Motor grossly within normal limits. Moving all extremities spontaneously. Normal speech. PSYCHIATRIC: Appropriate mood and affect; insight and judgment normal. Results - Labs CBC & Chem 7: 12/29/17 06:05 12/29/17 06:05 Laboratory Results - last 24 hr 12/27/17 17:25 ROXANN Screen Negative ROXANN Titer ND ROXANN Pattern ND SS-A Antibody <1.0 neg SS-B Antibody <1.0 neg Sm (Tejeda) Antibody <1.0 neg SM/PREPRESS PROOFER Antibody <1.0 neg Scl-70 Antibody <1.0 neg Anti-Smooth Muscle Ab Negative - Procedures 12/27/17 -EGD by Dr. Leon: 1. There was LA Class A esophagitis noted 2. There was mild gastritis in the entire examined stomach; multiple biopsies were performed 3. Normal duodenal mucosa in the bulb and second portion of the duodenum 4. Retroflexion was performed and was normal Assessment and Plan - Plan 62-year-old male presents with 2 day history of epigastric and LUQ pain Epigastric Pain: work up in progress, EGD showed esophagitis/gastritis; MRCP concern for developing abscess in liver -Lipase and LFTs mostly wnl -Abdominal CT reviewed, shows no definite acute abnormality; hepatic steatosis -Liver U/S 12/27 showed hypoechoic/cystic areas in the liver; consider hepatic abscess; recommends MRI -EGD 12/27 showed esophagitis, mild gastritis -MRCP 12/28 shows abnormal liver, considerations include venous thrombosis and developing abscess; no gallstones and common duct is normal -GI consulted, appreciate recommendations -General surgery consulted, appreciate assistance -Continue protonix 40mg bid and Carafate 1gm po qid -Supportive treatment with IVF, antiemetics, and pain control prn -With concern for liver abscess; started on antibiotics with IV Zosyn -Monitor closely -GI has signed off, recommends outpatient colonoscopy -Discussed with general surgery , unlikely abscess, no surgical intervention recommendation -Cleared for discharge by GI and GS -Diet advanced to regular, patient tolerating well, stable for discharge. Left Inguinal Hernia: tender to palpation -General surgery consulted, no acute surgical intervention recommended, outpatient f/up Atypical Chest Pain: likely secondary to above, initially admitted to [facility] -ACS was ruled out with negative serial cardiac enzymes x3 and EKG without acute ischemic changes -Chest CTA negative for PE; shows atelectasis All other medical conditions stable, continue home medication as appropriate. DVT Prophylaxis: teds/SCDs; avoid chemoprophylaxis with possible upcoming procedure Discharge Planning: Discharge today if tolerating oral intake. See discharge summary.
--- NOTE | 2017-12-30 11:00 | P.PNGS ---
<Lyn Zendejas - Last Filed: 12/30/17 10:57> Subjective Interval history: Resting in bed; still with epigastric pain Physical Exam Vital signs: Vital Signs 12/29/17 12:00 12/29/17 16:00 12/29/17 20:00 Temperature 98.5 F 97.8 F 98.2 F Pulse Rate 78 78 64 Respiratory Rate 16 17 16 Blood Pressure 116/64 127/70 136/74 Pulse Oximetry 94 L 96 96 12/30/17 00:00 12/30/17 03:58 12/30/17 08:39 Temperature 98.8 F 98.6 F 98.2 F Pulse Rate 80 72 63 Respiratory Rate 16 16 20 Blood Pressure 124/58 L 107/55 L 145/72 H Pulse Oximetry 95 96 98 12/30/17 08:43 Temperature Pulse Rate 72 Respiratory Rate 20 Blood Pressure 106/54 L Pulse Oximetry 96 Intake & Output 12/29/17 12/30/17 12/30/17 18:59 06:59 18:59 Intake Total 200 / 200 200 / 200 Balance 200 / 200 200 / 200 Intake: IV 200 / 200 200 / 200 Zosyn 4.5 GM Premix 4.5 gm In 200 / 200 200 / 200 100 ml @ 200 mls/hr IV.SIG Q6H [facility] Rx#:[id number] Other: Date of Last Bowel Movement 12/26/17 12/26/17 Narrative: Alert and awake Cardio: RRR Resp: CTAB Abd: epigastric tenderness with palpation Assessment and Plan - Plan 62 year old male with LEFT inguinal hernia (non incarcerated); epigastric pain -?? liver abscess -On Zosyn -Will hold off any of surgery for inguinal hernia at this time -Diet as tolerated -GS will follow peripherally -Once over this acute event will continue outpatient workup for inguinal hernia -Discussed with Dr. Sanchez and RADHA Lake <Bhupinder Claros - Last Filed: 01/14/18 07:12> Assessment and Plan - Plan patient seen at bedside continue abx and tx for liver abscess defer hernia repair until tx of infection discussed with patient discussed risks of mesh during infection hernia treatment as out pt - Attending Attestation The exam, history, and the medical decision-making described in the above note were completed with the assistance of the mid-level provider. I reviewed and agree with the findings presented. I attest that I had a [id number] encounter with the patient on the same day, and personally performed and documented my assessment and findings in the medical record.
[2017-12-30 12:14] VITALS: BP 108/48; PULSE 68; RESP 18
--- NOTE | 2017-12-30 14:57 | P.DS ---
Date of admission: 12/26/17 21:35 Primary care physician: Consuelo Reyes MD Brief History from admission: 62-year-old male presents to ER for further evaluation of abdominal pain. Onset 2 days ago. Location midepigastric with radiation to left upper quadrat. Characterized as severe, constant sharp pain made worse with breathing, movement , and laying on left side. Endorses poor appetite, nausea, and x2 non-bloody emesis early this morning. No fever or chills. No recent illness in last 4-6 weeks. Relieving factors include applying gentle pressure to midepigastrium and laying still. Reports being seen at Dr. Claros office for an inguinal hernia with worsening symptoms x4 days. During visit notified Dr. Claros of above and was encouraged to go to ER if needed. Upon walking out of doctor's office, pain became so severe his son had to assist him in the car and brought him to ER. Dr. Claros made aware of patient's arrival to ER by ER physician last evening, no acute findings on CT scan. Lifelong non-smoker. No history of hypertension, hyperlipidemia, diabetes, or coronary artery disease. Family history includes brother UT age 59 and father UT in his mid 40s. Father age 58 from cancer. Endorses an active lifestyle, walks and weight trains daily, and maintains his [address] property. DS: Medications - Discharge Medications Prescriptions: pantoprazole [Protonix] 40 mg PO BID 30 Days #60 tab sucralfate 1 gm PO Q6HR 7 Days ml DS: Summary Hospital Course: 62-year-old male presents with 2 day history of epigastric and LUQ pain Epigastric Pain: work up in progress, EGD showed esophagitis/gastritis; MRCP concern for developing abscess in liver -Lipase and LFTs mostly wnl -Abdominal CT reviewed, shows no definite acute abnormality; hepatic steatosis -Liver U/S 12/27 showed hypoechoic/cystic areas in the liver; consider hepatic abscess; recommends MRI -EGD 12/27 showed esophagitis, mild gastritis -MRCP 12/28 shows abnormal liver, considerations include venous thrombosis and developing abscess; no gallstones and common duct is normal -GI consulted, appreciate recommendations -General surgery consulted, appreciate assistance -Continue protonix 40mg bid and Carafate 1gm po qid -Supportive treatment with IVF, antiemetics, and pain control prn -With concern for liver abscess; started on antibiotics with IV Zosyn -Monitor closely -GI has signed off, recommends outpatient colonoscopy -Discussed with general surgery , unlikely abscess, no surgical intervention recommendation -Cleared for discharge by GI and GS. -Diet advanced to regular, patient tolerating well, stable for discharge. Left Inguinal Hernia: tender to palpation -General surgery consulted, no acute surgical intervention recommended, outpatient f/up with Dr. Claros Atypical Chest Pain: likely secondary to above, initially admitted to [facility] -ACS was ruled out with negative serial cardiac enzymes x3 and EKG without acute ischemic changes -Chest CTA negative for PE; shows atelectasis -Chest pain resolved, stable for d/c - Time Spent with Patient Total time spent providing and/or coordinating discharge services: Greater than 30 minutes - Quality: VTE Deep Vein Thrombosis/Pulmonary Embolism Present on Admission: No Exam Vital signs: Vital Signs 12/29/17 16:00 12/29/17 20:00 12/30/17 00:00 Temperature 97.8 F 98.2 F 98.8 F Pulse Rate 78 64 80 Respiratory Rate 17 16 16 Blood Pressure 127/70 136/74 124/58 L Pulse Oximetry 96 96 95 12/30/17 03:58 12/30/17 08:39 12/30/17 08:43 Temperature 98.6 F 98.2 F Pulse Rate 72 63 72 Respiratory Rate 16 20 20 Blood Pressure 107/55 L 145/72 H 106/54 L Pulse Oximetry 96 98 96 12/30/17 11:00 12/30/17 12:11 Temperature 98.2 F Pulse Rate 75 68 Respiratory Rate 18 Blood Pressure 108/48 L Pulse Oximetry 96 Intake & Output 12/29/17 12/30/17 12/30/17 18:59 06:59 18:59 Intake Total 200 / 200 200 / 200 100 / 100 Balance 200 / 200 200 / 200 100 / 100 Intake: IV 200 / 200 200 / 200 100 / 100 Zosyn 4.5 GM Premix 4.5 gm In 200 / 200 200 / 200 100 / 100 100 ml @ 200 mls/hr IV.SIG Q6H [facility] Rx#:[id number] Other: Date of Last Bowel Movement 12/26/17 12/26/17 12/26/17 Narrative: GENERAL: Well-nourished, well-developed male patient in [place]. SKIN: Warm and dry. No rash. HEENT: Normocephalic. Atraumatic. Pupils equal and round. Mucous membranes pink and moist. CARDIOVASCULAR: Regular rate and rhythm. No murmur appreciated. RESPIRATORY: No accessory muscle use. Clear to auscultation. Breath sounds equal bilaterally. GASTROINTESTINAL: Abdomen soft, nondistended, minimal epigastric TTP, much improved. Normoactive bowel sounds x4. MUSCULOSKELETAL: No obvious deformities. Extremities without clubbing, cyanosis , or edema. NEUROLOGICAL: Awake and alert. No obvious cranial nerve deficits. Motor grossly within normal limits. Moving all extremities spontaneously. Normal speech. PSYCHIATRIC: Appropriate mood and affect; insight and judgment normal. Results Procedures completed during hospitalization: 12/27/17 -EGD by Dr. Leon: 1. There was LA Class A esophagitis noted 2. There was mild gastritis in the entire examined stomach; multiple biopsies were performed 3. Normal duodenal mucosa in the bulb and second portion of the duodenum 4. Retroflexion was performed and was normal Labs on day of discharge: Labs from last 24 hours 12/27/17 17:25 Rheumatoid Factor Less than 14 ROXANN Screen Negative ROXANN Titer ND ROXANN Pattern ND SS-A Antibody <1.0 neg SS-B Antibody <1.0 neg Sm (Tejeda) Antibody <1.0 neg SM/OUTSOLE CUTTER MACHINE Antibody <1.0 neg Scl-70 Antibody <1.0 neg - Impressions ITS Impressions Chest X-Ray 12/26/17 15:43 CONCLUSION: No acute cardiopulmonary disease. Abdomen/Pelvis CT 12/26/17 17:54 CONCLUSION: 1. No definite acute abnormality seen. 2. Hepatic steatosis. 3. Renal cysts. 4. Mild atelectasis or consolidation at the lung bases. Chest CTA 12/26/17 17:54 CONCLUSION: 1. No pulmonary embolus. 2. Mild posterior lower lobe and posterior left lingular atelectasis or consolidation. Liver Ultrasound 12/27/17 00:00 CONCLUSION: 1. Discrepant findings between the current ultrasound and a CT scan of the abdomen performed one day earlier. There are now hypoechoic/cystic areas in the hepatic parenchyma adjacent to the gallbladder fossa which were not present previously. Etiology is uncertain but I would consider entities such as developing hepatic abscess. MRI of the liver with and without gadolinium is suggested for further characterization. 2. 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 Currently, the ultrasound shows the left portal vein to be widely patent with adequate blood flow. This area can also be evaluated on the MRI as well. 3. Diffuse hepatic fatty infiltration. Cholangiopancreatography MRI 12/28/17 00:00 CONCLUSION: 1. Abnormal liver. Considerations would include venous thrombosis and developing abscess. 2. MRI of the liver with contrast is suggested. 3. There are no gallstones. 4. Common duct is normal. Discharge Plan - Discharge Disposition Patient Disposition: 01 Discharge Home - Discharge Condition Condition: Stable - Discharge Order Discharge Orders: Discharge Order (Routine); Ordered 12/30/17 Ordered By: Jackie Sterling - Discharge Details Anticipated Discharge Date: 12/30/17 - Physicians Team Primary Care Provider: Consuelo Reyes Attending Provider: Serge Sanchez Other Providers: Bhupinder Claros MD ; [facility] ; Diego Leon MD ; Sarthak Morrow MD
[2017-12-31 03:51] LABS: DS DNA Ab (Crithidia) NEGATIVE (NEGATIVE)
== END 2017-12-30 16:44 | disposition home or self-care (01) ==
LOC: NEPGCP 14:37 → NEDA 14:37 → NEPC 14:37 → NEDA 22:53 → NEPGCP 22:54
PROVIDERS: ADMIT Internal Medicine; ATTEND Internal Medicine

== ENCOUNTER 2018-01-17 20:48 | Observation (INO) ==
[2018-01-17 22:46] LABS: Baso # (Auto) 0.1 th/mm3 (0.0-0.2); Baso % (Auto) 0.8 % (0.0-2.0); Eos # (Auto) 0.1 th/mm3 (0.0-0.4); Eos % (Auto) 1.9 % (0.0-4.0); Hematocrit 39.5 % (39.0-51.0); Hemoglobin 13.7 gm/dL (13.0-17.0); Lymph # (Auto) 1.5 th/mm3 (1.0-4.8); Lymph % (Auto) 21.9 % (9.0-44.0); Mean Corpuscular HGB Conc 34.6 % (32.0-36.0); Mean Corpuscular Hemoglobin 32.2 pg (27.0-34.0); Mean Corpuscular Volume 93.1 fL (80.0-100.0); Mean Platelet Volume 8.7 fL (7.0-11.0); Mono # (Auto) 0.7 th/mm3 (0.0-0.9); Mono % (Auto) 10.1 % (0.0-8.0); Neut # (Auto) 4.4 th/mm3 (1.8-7.7); Neut % (Auto) 65.3 % (16.0-70.0); Platelet Count 277 th/mm3 (150-450); Red Blood Count 4.25 mil/mm3 (4.50-5.90); Red Cell Distribution Width 14.1 % (11.6-17.2); White Blood Count 6.8 th/mm3 (4.0-11.0)
[2018-01-17 22:53] LABS: Activated Partial Thrombo Time 25.9 sec (24.3-30.1); INR 1.1 Ratio; Prothrombin Time 11.3 sec (9.8-11.6)
[2018-01-17 22:54] LABS: Alanine Aminotransferase 42 U/L (12-78); Albumin 3.5 g/dL (3.4-5.0); Alkaline Phosphatase 119 U/L (45-117); Anion Gap 8 meq/L (5-15); Aspartate Aminotransferase 36 U/L (15-37); Blood Urea Nitrogen 9 mg/dL (7-18); Calcium 8.6 mg/dL (8.5-10.1); Carbon Dioxide 27.1 meq/L (21.0-32.0); Chloride 107 meq/L (98-107); Glomerular Filtration Rate 78 mL/min (>89); Glucose,Random 97 mg/dL (74-106); Lipase 85 U/L (73-393); Potassium 3.9 meq/L (3.5-5.1); Sodium 142 meq/L (136-145); Total Protein 6.8 g/dL (6.4-8.2)
[2018-01-17] MEDS ORDERED: Ciprofloxacin 400 MG/200 ML 400 MG/200 ML PIGGYBACK IV.SIG ONE (23:12)
[2018-01-17] MEDS ORDERED: Enoxaparin Inj 80 MG/0.8 ML Syringe SQ ONE (23:12)
[2018-01-17] MEDS ORDERED: Sodium Chlor 0.9% Inj 500 ML IV.SIG ONE (23:13)
[2018-01-17] MEDS ORDERED: HYDROmorphone PF Inj 2 MG/ML Vial IV.PUSH ONE (23:13)
[2018-01-17 23:46] LABS: Bilirubin,Urine Negative (Negative); Clarity,Urine Clear (Clear); Color,Urine Yellow (Yellw/Straw); Glucose,Urine (UA) Negative (Negative); Leukocyte Esterase,Urine Negative (Negative); Mucus,Urine Many /lpf (Occasional); Nitrite,Urine Negative (Negative); Specific Gravity,Urine 1.024 (1.002-1.035); Squamous Epithelial Cell,Urine <1 /hpf (0-5); Urobilinogen,Urine 4 or Greater mg/dL (Less than 2)
--- NOTE | 2018-01-18 00:18 | CT ---
EXAM DATE: 01/18/2018 12:07 AM EDT AGE/SEX: 62 years / Male INDICATIONS: Upper abdominal pain. Recent known portal vein thrombosis. CLINICAL DATA: This is the patient's initial encounter. Patient reports that signs and symptoms have been present for 1 day and indicates a pain score of 6/10. MEDICAL/SURGICAL HISTORY: Ulcers. Hernia. Portal vein thrombosis. Fusion, lumbar. ORAL CONTRAST: No oral contrast ingested. RADIATION DOSE: 6.93 CTDI (mGy) [place] [facility] [place]26[place]. . TECHNIQUE: Multiple contiguous axial images were obtained through the abdomen and pelvis following b olus infusion of 90 ml Omnipaque 350 (iohexol) nonionic water-soluble contrast as a single exam dos e. No oral contrast ingested. Using automated exposure control and adjustment of the mA and/or kV ac cording to patient size, radiation dose was kept as low as reasonably achievable to obtain optimal di agnostic quality images. DICOM format image data is available electronically for review and comparis on. FINDINGS: Lower Lungs: The visualized lower lungs are clear. Liver: The liver has a homogeneous density without space-occupying lesion. There is no dilation of th e biliary tree. Areas of portal vein thrombosis are again noted in the proximal right and left portal veins. Mild to moderate hepatic steatosis is again noted. The gallbladder remains unremarkable. Spleen: Homogeneous density without enlargement. Pancreas: Unremarkable without mass or calcification. Kidneys: Normal in size and shape. No evidence of mass or hydronephrosis. Adrenal Glands: Unremarkable. Aorta: The aorta and proximal iliac vessels are grossly unremarkable without aneurysmal dilation. Bowel/Mesentery: No oral contrast was given limiting the sensitivity. The bowel loops are grossly unr emarkable. The cecum and sigmoid colon have a normal configuration. Abdominal Wall: Intact. Retroperitoneum: No evidence of adenopathy in the retrocrural, para-aortic, or deep pelvic regions. Bladder: Contours are smooth. Reproductive Organs: No abnormal masses or calcifications seen. Inguinal: The inguinal region is unremarkable without evidence of adenopathy. Bony Structures: Unremarkable. CONCLUSION: 1. There are areas of portal vein thrombosis again noted. 2. The gallbladder remains unremarkable in appearance. 3. Hepatic steatosis. Electronically signed by: Ender Alford MD 01/18/2018 12:16 AM EDT
--- NOTE | 2018-01-18 01:04 | ED ---
HPI General Chief complaint: Medical Clearance Stated complaint: Phy Sent/Poss Blood Clot Liver Time Seen by Provider: 01/17/18 21:48 History of Present Illness HPI narrative: Patient 62-year-old male was sent in by Dr. Deleon's office for evaluation of possible ischemic colitis. Patient was admitted here earlier this month and was ultimately diagnosed with portal vein thrombosis. He began having chronic epigastric and right upper quadrant abdominal pain for the past few months. Ultimately he was discharged without anticoagulation. Consultations to general surgery as well as GI and both cleared him for discharge. The patient states that both his general surgeon Dr. Claros as tell his GI doctor states that he was discharged prematurely. He continues to have right upper quadrant epigastric abdominal pain, states he had an MRI/MRA of his abdomen yesterday with and without IV contrast and did show that he had a portal vein thrombosis. He was sent in here for further evaluation. Dr. Deleon left message through nursing staff that the patient was to be admitted placed on Lovenox and antibiotics. This was also discussed with Dr. Ramos who seconds the recommendation peer Related Data Home Medications Medication Instructions Recorded Confirmed diazepam [Valium] 10 mg PO BID PRN 12/26/17 01/17/18 gabapentin 300 mg PO BID 12/26/17 01/17/18 montelukast 10 mg PO QPM 12/26/17 01/17/18 quetiapine [Seroquel XR] 200 mg PO HS 12/26/17 01/17/18 temazepam 30 mg PO HS 12/26/17 01/17/18 trazodone 100 mg PO HS 12/26/17 01/17/18 Previous Rx's Medication Instructions Recorded pantoprazole [Protonix] 40 mg PO BID 30 Days #60 tab 12/30/17 Allergies Allergy/AdvReac Type Severity Reaction Status Date / Time diphenhydramine Allergy Unknown Irritation Verified 01/17/18 21:31 Review of Systems Except as stated in HPI: all other systems reviewed are negative [facility] Medical History Medical History Cancer (Acute) Hernia (Acute) Bipolar 1 disorder (Acute) Surgical History Surgical History Carpal tunnel syndrome on both sides (Acute) Fusion of spine of cervical region (Acute) History of facial surgery (Acute) History of knee surgery (Acute) History of lumbar fusion (Acute) Family History Family History Other No history of heart disease Social History Social History Substance History: No History of Abuse Second Hand Smoke Exposure: No Smoking Status: Never smoker How Often Do You Have a Drink Containing Alcohol: Never Hx Recent Travel: No Recent Travel in [facility] within the Last 8 Weeks: No Recent Out of Country Travel within the Last 8 Weeks: No Immunization History Tetanus Immunization: >5 Years Hx Influenza Vaccine This Season: No Exam Narrative Exam Narrative: GENERAL: Well-developed well-nourished patient in minimal discomfort. SKIN: Focused skin assessment warm/dry. HEAD: Atraumatic. Normocephalic. EYES: Pupils equal and round. No scleral icterus. No injection or drainage. ENT: No nasal bleeding or discharge. Mucous membranes pink and moist. NECK: Trachea midline. No JVD. CARDIOVASCULAR: Regular rate and rhythm. No murmur appreciated. RESPIRATORY: No accessory muscle use. Clear to auscultation. Breath sounds equal bilaterally. GASTROINTESTINAL: Abdomen soft, non-tender, nondistended. Hepatic and splenic margins not palpable. Moderately tender in the right upper quadrant without any rebound or percussive tenderness. MUSCULOSKELETAL: No obvious deformities. No clubbing. No cyanosis. No edema. NEUROLOGICAL: Awake and alert. No obvious cranial nerve deficits. Motor grossly within normal limits. Normal speech. PSYCHIATRIC: Appropriate mood and affect; insight and judgment normal. Course Initial Documented Vital Signs Temperature 99.1 F 01/17/18 21:31 Pulse Rate 76 01/17/18 21:31 Respiratory Rate 18 01/17/18 21:31 Blood Pressure 119/63 01/17/18 21:31 Pulse Oximetry 97 01/17/18 21:31 Last Documented Vital Signs Temperature 97.6 F 01/18/18 07:50 Pulse Rate 57 L 01/18/18 07:50 Respiratory Rate 16 01/18/18 07:50 Blood Pressure 94/60 L 01/18/18 07:50 Pulse Oximetry 97 01/18/18 07:50 Medical Decision Making MDM Narrative Medical decision making narrative: Patient room to the emergency department, was seen in by Dr. Deleon's office for continued abdominal pain since discharge. Diagnosed with a portal vein thrombosis both in the hospital and at home, recommendations were communicated for me from day nursing as well as from Dr. Ramos for Lovenox, antibiotics including Cipro and Flagyl. Head discussions with radiology on-call as well as this patient regarding the need for repeat scan, labs are reassuring, lactic acid negative. Still issues are concerned that he may have developed ischemic colitis and that that if this is a consideration and needs exclusion. Given the recommendations from Dr. Deleon I recommend that he have a repeat CT of his abdomen which was performed and did not show any evidence of ischemic colitis, there is been some subtle changes to the thrombosis of the portal vein but all in all it does persist. I given him a full dose Lovenox to Cipro and Flagyl as discussed above. He is feeling better after some Dilaudid and will be admitted under observation to Dr. Sanchez. As above the patient was discussed with Dr. Ramos will see in the morning. Lab Data Result diagrams: 01/17/18 22:25 01/17/18 22:25 Lab Results 01/17/18 01/17/18 01/17/18 Range/Units 22:25 22:25 22:25 WBC 6.8 (4.0-11.0) th/mm3 RBC 4.25 L (4.50-5.90) mil/mm3 Hgb 13.7 (13.0-17.0) gm/dL Hct 39.5 (39.0-51.0) % MCV 93.1 (80.0-100.0) fL MCH 32.2 (27.0-34.0) pg MCHC 34.6 (32.0-36.0) % RDW 14.1 (11.6-17.2) % Plt Count 277 (150-450) th/mm3 MPV 8.7 (7.0-11.0) fL Neut % (Auto) 65.3 (16.0-70.0) % Lymph % (Auto) 21.9 (9.0-44.0) % [place] % (Auto) 10.1 H (0.0-8.0) % Eos % (Auto) 1.9 (0.0-4.0) % Baso % (Auto) 0.8 (0.0-2.0) % Neut # (Auto) 4.4 (1.8-7.7) th/mm3 Lymph # (Auto) 1.5 (1.0-4.8) th/mm3 [place] # (Auto) 0.7 (0.0-0.9) th/mm3 Eos # (Auto) 0.1 (0.0-0.4) th/mm3 Baso # (Auto) 0.1 (0.0-0.2) th/mm3 WBC Differential . Differential Comment Auto diff final PT 11.3 (9.8-11.6) sec INR 1.1 Ratio APTT 25.9 (24.3-30.1) sec Sodium 142 (136-145) meq/L Potassium 3.9 (3.5-5.1) meq/L Chloride 107 (98-107) meq/L Carbon Dioxide 27.1 (21.0-32.0) meq/L Anion Gap 8 (5-15) meq/L BUN 9 (7-18) mg/dL Creatinine 0.97 (0.60-1.30) mg/dL Estimated GFR 78 L (>89) mL/min Random Glucose 97 (74-106) mg/dL Lactic Acid (0.4-2.0) mmol/L Calcium 8.6 (8.5-10.1) mg/dL Total Bilirubin 0.3 (0.2-1.0) mg/dL AST 36 (15-37) U/L ALT 42 (12-78) U/L Alkaline Phosphatase 119 H (45-117) U/L Total Protein 6.8 (6.4-8.2) g/dL Albumin 3.5 (3.4-5.0) g/dL Lipase 85 (73-393) U/L Urine Color (Yellw/Straw) Urine Clarity (Clear) Urine pH (5.0-8.5) Ur Specific [place] (1.002-1.035) Urine Protein (Neg-Trace) mg/dL Urine Glucose (UA) (Negative) mg/dL Urine Ketones (Negative) mg/dL Urine Occult Blood (Negative) Urine Nitrate (Negative) Urine Bilirubin (Negative) Urine Urobilinogen (Less than 2) mg/dL Ur Leukocyte Esterase (Negative) Urine WBC (0-5) /hpf Ur Squamous Epith Cells (0-5) /hpf Urine Mucus (Occasional) /lpf Micro UA Comment Urine Culture Comments 01/17/18 01/17/18 Range/Units 22:25 22:45 WBC (4.0-11.0) th/mm3 RBC (4.50-5.90) mil/mm3 Hgb (13.0-17.0) gm/dL Hct (39.0-51.0) % MCV (80.0-100.0) fL MCH (27.0-34.0) pg MCHC (32.0-36.0) % RDW (11.6-17.2) % Plt Count (150-450) th/mm3 MPV (7.0-11.0) fL Neut % (Auto) (16.0-70.0) % Lymph % (Auto) (9.0-44.0) % [place] % (Auto) (0.0-8.0) % Eos % (Auto) (0.0-4.0) % Baso % (Auto) (0.0-2.0) % Neut # (Auto) (1.8-7.7) th/mm3 Lymph # (Auto) (1.0-4.8) th/mm3 [place] # (Auto) (0.0-0.9) th/mm3 Eos # (Auto) (0.0-0.4) th/mm3 Baso # (Auto) (0.0-0.2) th/mm3 WBC Differential Differential Comment PT (9.8-11.6) sec INR Ratio APTT (24.3-30.1) sec Sodium (136-145) meq/L Potassium (3.5-5.1) meq/L Chloride (98-107) meq/L Carbon Dioxide (21.0-32.0) meq/L Anion Gap (5-15) meq/L BUN (7-18) mg/dL Creatinine (0.60-1.30) mg/dL Estimated GFR (>89) mL/min Random Glucose (74-106) mg/dL Lactic Acid 0.6 (0.4-2.0) mmol/L Calcium (8.5-10.1) mg/dL Total Bilirubin (0.2-1.0) mg/dL AST (15-37) U/L ALT (12-78) U/L Alkaline Phosphatase (45-117) U/L Total Protein (6.4-8.2) g/dL Albumin (3.4-5.0) g/dL Lipase (73-393) U/L Urine Color Yellow (Yellw/Straw) Urine Clarity Clear (Clear) Urine pH 6.0 (5.0-8.5) Ur Specific [place] 1.024 (1.002-1.035) Urine Protein Negative (Neg-Trace) mg/dL Urine Glucose (UA) Negative (Negative) mg/dL Urine Ketones Negative (Negative) mg/dL Urine Occult Blood Negative (Negative) Urine Nitrate Negative (Negative) Urine Bilirubin Negative (Negative) Urine Urobilinogen 4 or greater (Less than 2) mg/dL Ur Leukocyte Esterase Negative (Negative) Urine WBC 2 (0-5) /hpf Ur Squamous Epith Cells <1 (0-5) /hpf Urine Mucus Many H (Occasional) /lpf Micro UA Comment Culture not ind Urine Culture Comments Culture not ind Imaging Data Radiologist's impression: Abdomen/Pelvis CT 01/17/18 23:11 CONCLUSION: 1. There are areas of portal vein thrombosis again noted. 2. The gallbladder remains unremarkable in appearance. 3. Hepatic steatosis. Discharge Plan Discharge Disposition Patient Disposition: 30 Still Patient Discharge Details Diagnosis: Portal vein thrombosis, Abdominal pain Physicians Team ED Provider: Chauncey Varma Primary Care Provider: UNKNOWN, Attending Provider: Vianey Leach Other Providers: Adrián Ramos Discharge Interventions Interventions: ED Discharge Assessment Last Done: 01/18/18 03:05 Status ED Status: Left Department Discharge Information Discharge Date/Time: 01/18/18 03:07
[2018-01-18] MEDS: HYDROmorphone PF Inj 2 MG/ML Vial IV.PUSH PRN ×5 (03:18→23:00)
--- NOTE | 2018-01-18 04:00 | P.HPIM ---
History of Present Illness Primary Care Physician: UNKNOWN Chief Complaint: abdominal pain History of Present Illness: 62 y/o male with a history of bipolar, and gastritis presented to the ED after being instructed to come to the ED by Dr. Deleon. Patient is complaining of RUQ abdominal tenderness that has been going on for 2 weeks. 01/27, constant,stabbing , worse with movement and food, with associated nausea, pain medication does help. The son is at bedside and states the told him to come to the hospital to be evaluated for a blood clot. Patient denies any associated chest pain or sob. Patient was last seen 12/28 and was evaluated by General surgery and GI. There were conflicting scans that showed a portal vein thrombus, but then the ultrasound showed a patent portal vein. Patient underwent a EGD and patient was found to have gastritis, and gen surgery stated there was no abscess on the scan and no intervention was need. Patient was then discharged on Protonix and sucralfate. ER physician discussed case with Dr. Ramos who is auricular detoxification specialist and he suggested Full anticoagulation, with IV antibiotics and consult placed. Review of Systems All other systems reviewed negative except as stated in HPI PMFSH - History History Provided By: Patient, Family Member - Medical History Medical History: Medical History (Last Updated 01/18/18 @ 03:50 by TRISHA Jansen) Cancer (Acute) Hernia (Acute) Bipolar 1 disorder - Surgical History Surgical History: Surgical History (Last Updated 01/18/18 @ 03:50 by TRISHA Jansen) Carpal tunnel syndrome on both sides (Acute) Fusion of spine of cervical region (Acute) History of facial surgery (Acute) History of knee surgery (Acute) History of lumbar fusion (Acute) - Family History Family History: Family History (Last Updated 01/18/18 @ 03:51 by TRISHA Jansen) Other No history of heart disease - Tobacco History Second Hand Smoke Exposure: No Smoking Status: Never smoker - Alcohol History How Often Do You Have a Drink Containing Alcohol: Never - Substance Use History Substance History: No History of Abuse - Travel History History of Recent Travel: No Recent Travel in the [place] Within the Last 8 Weeks: No Recent Travel Out of the Country Within the Last 8 Weeks: No - Immunization History Tetanus Immunization: >5 Years Hx Influenza Vaccine This Season: No Medications and Allergies Active Medications: Active Medications Enoxaparin Sodium (Lovenox Inj) 80 mg SQ Q12H ALEXIA Hydromorphone HCl (Dilaudid Pf Inj) 1 mg IV.PUSH Q4H PRN PRN Reason: ABDOMINAL PAIN 1-10 Last Admin: 01/18/18 03:18 Dose: 1 mg Ciprofloxacin/Dextrose (Cipro 400 Mg/200 Ml Inj) 400 mg in 200 mls @ 200 mls/ hr IV.SIG Q12H ALEXIA Metronidazole/Sodium Chloride (Flagyl 500 Mg Inj) 100 mls @ 100 mls/hr IV.SIG Q8H ALEXIA Ondansetron HCl (Zofran Odt) 4 mg PO Q6H PRN PRN Reason: NAUSEA OR VOMITING Sodium Chloride (Ns Flush) 2 ml IV.FLUSH PRN PRN PRN Reason: FLUSH AFTER USING IV ACCESS Allergies Allergy/AdvReac Type Severity Reaction Status Date / Time diphenhydramine Allergy Unknown Irritation Verified 01/17/18 21:31 Home Medications Medication Instructions Recorded Confirmed Type diazepam [Valium] 10 mg PO BID PRN 12/26/17 01/17/18 History gabapentin 300 mg PO BID 12/26/17 01/17/18 History montelukast 10 mg PO QPM 12/26/17 01/17/18 History quetiapine [Seroquel XR] 200 mg PO HS 12/26/17 01/17/18 History temazepam 30 mg PO HS 12/26/17 01/17/18 History trazodone 100 mg PO HS 12/26/17 01/17/18 History Exam Vital signs: Vital Signs 01/17/18 21:31 Temperature 99.1 F Pulse Rate 76 Respiratory Rate 18 Blood Pressure 119/63 Pulse Oximetry 97 Intake & Output 01/17/18 01/17/18 01/18/18 06:59 18:59 06:59 Weight 81.647 kg Narrative: GENERAL: This is a well-nourished, well-developed patient, in no apparent distress. CARDIOVASCULAR: Regular rate and rhythm without murmurs, gallops, or rubs. RESPIRATORY: Clear to auscultation. Breath sounds equal bilaterally. No wheezes , rales, or rhonchi. GASTROINTESTINAL: Abdomen soft, RUQ tenderness, nondistended. Normal active bowel sounds MUSCULOSKELETAL: Extremities without clubbing, cyanosis, or edema. NEURO: Alert & Oriented x4 to person, place, time, situation. Moves all ext x4 Results - Labs CBC & Chem 7: 01/17/18 22:25 01/17/18 22:25 Labs: Short CBC 01/17/18 Range/Units 22:25 WBC 6.8 (4.0-11.0) th/mm3 Hgb 13.7 (13.0-17.0) gm/dL Hct 39.5 (39.0-51.0) % Plt Count 277 (150-450) th/mm3 BMP 01/17/18 22:25 Sodium 142 Potassium 3.9 Chloride 107 Carbon Dioxide 27.1 BUN 9 Creatinine 0.97 Calcium 8.6 Liver Function 01/17/18 Range/Units 22:25 Total Bilirubin 0.3 (0.2-1.0) mg/dL AST 36 (15-37) U/L ALT 42 (12-78) U/L Alkaline Phosphatase 119 H (45-117) U/L Albumin 3.5 (3.4-5.0) g/dL Urine 01/17/18 Range/Units 22:45 Urine Color Yellow (Yellw/Straw) Urine Clarity Clear (Clear) Urine pH 6.0 (5.0-8.5) Ur Specific [place] 1.024 (1.002-1.035) Urine Protein Negative (Neg-Trace) mg/dL Urine Glucose (UA) Negative (Negative) mg/dL - Imaging Impressions Abdomen/Pelvis CT 01/17/18 23:11 CONCLUSION: 1. There are areas of portal vein thrombosis again noted. 2. The gallbladder remains unremarkable in appearance. 3. Hepatic steatosis. Caprini VTE Risk Assessment Caprini VTE Risk Assessment: Moderate/High Risk (score >= 2) Caprini Risk Assessment Model: Point Value = 1 Point Value = 2 Point Value = 3 Point Value = 5 Age 41-60 Minor surgery BMI > 25 kg/m2 Swollen legs Varicose veins or History of unexplained or recurrent spontaneous Oral contraceptives or hormone replacement Sepsis (< 1 month) Serious lung disease, including pneumonia (< 1 month) Abnormal pulmonary function Acute myocardial infarction Congestive heart failure (< 1 month) History of inflammatory bowel disease Medical patient at bed rest Age 61-74 Arthroscopic surgery Major open surgery (> 45 min) Laparoscopic surgery (> 45 min) Malignancy Confined to bed (> 72 hours) Immobilizing plaster cast Central venous access Age >= 75 History of VTE Family history of VTE Factor V Leiden Prothrombin [id number] Lupus anticoagulant Anticardiolipin antibodies Elevated serum homocysteine Heparin-induced thrombocytopenia Other congenital or acquired thrombophilia Stroke (< 1 month) Elective arthroplasty Hip, pelvis, or leg fracture Acute spinal cord injury (< 1 month) Prophylaxis Regimen: Total Risk Factor Score Risk Level Prophylaxis Regimen 0-1 Low Early ambulation 2 Moderate Order ONE of the following: *Sequential Compression Device (SCD) *Heparin 5000 units SQ BID 3-4 Higher Order ONE of the following medications: *Heparin 5000 units SQ TID *Enoxaparin/Lovenox 40 mg SQ daily (WT < 150 kg, CrCl > 30 mL/min) *Enoxaparin/Lovenox 30 mg SQ daily (WT < 150 kg, CrCl > 10-29 mL/min) *Enoxaparin/Lovenox 30 mg SQ BID (WT < 150 kg, CrCl > 30 mL/min) AND/OR *Sequential Compression Device (SCD) 5 or more Highest Order ONE of the following medications: *Heparin 5000 units SQ TID (Preferred with Epidurals) *Enoxaparin/Lovenox 40 mg SQ daily (WT < 150 kg, CrCl > 30 mL/min) *Enoxaparin/Lovenox 30 mg SQ daily (WT < 150 kg, CrCl > 10-29 mL/min) *Enoxaparin/Lovenox 30 mg SQ BID (WT < 150 kg, CrCl > 30 mL/min) AND *Sequential Compression Device (SCD) Assessment and Plan - Plan Portal vein thrombus CT abdomen reviewed and shows a portal vein thrombosis -Consult GI for evaluation -Full anticoagulation with Lovenox per GI -IV antibiotics Cipro and Flagyl per GI -Pain management with IV Dilaudid -NPO Bipolar, chronic -Resume home medications Gastritis, chronic -Resume home Protonix and Carafate DVT prophylaxis: Lovenox Discussed Condition With: Patient and RN
[2018-01-18] MEDS: QUEtiapine 100 MG Tablet PO SCH ×2 (08:49→20:20)
[2018-01-18] MEDS: Gabapentin 300 MG Capsule PO SCH ×2 (08:49→20:19)
--- NOTE | 2018-01-18 10:37 | MB ---
cc: Adrián Ramos MD,Serge Prince,Demetrio Aragon,Anish Deleon,Patricia Andre MD DATE: 01/18/2018 DATE OF : 1955 DATE OF CONSULTATION: 01/18/2018 ALIGNING INSPECTOR: Dr. Adrián Ramos HISTORY OF PRESENT ILLNESS: The patient is a 62-year-old white man I was asked to for further evaluation and management of abdominal pain. He was here in the hospital about a month ago, early December, with abdominal discomfort. Endoscopy revealed esophagitis and he was put on acid suppressing medication. There was no improvement in symptoms. Radiologic studies confirmed a prominent left portal vein thrombus that was not addressed. He has been having steady pain, worsening after any oral intake over the past 4 weeks. He has had early satiety and has noticed increased abdominal discomfort with exertion, as with walking. PAST MEDICAL HISTORY: His medical history is significant for bipolar disorder, esophagitis and gastritis. PAST SURGICAL HISTORY: He has undergone multiple orthopedic procedures and underwent emergency appendectomy 2 years ago for a ruptured appendix. Back in the 1980s he had a lower extremity surgical procedure, developed a clot and a few weeks later developed what he describes as a stroke that was mild and resolved. He has no other clotting abnormalities. He has bilateral hernias, he tells me. His orthopedic surgical procedures include carpal tunnel surgery on both sides, fusion of the spine in the cervical region, facial surgery for melanoma in 4 or 5 years ago. He has had knee surgery and lumbar fusion as well as ankle surgeries. He has had left shoulder surgery as well. FAMILY HISTORY: Prostate cancer, ovarian cancer, lung cancer. SOCIAL HISTORY: Tobacco use none, none alcohol use. ALLERGIES: NONE. REVIEW OF SYSTEMS: No recent headaches or vision difficulties. No dysphagia. No current heartburn symptoms. He has early satiety and the pain in the abdomen. No bowel irregularities. No unexplained weight loss. No cardiac symptomatology or respiratory difficulties. No urinary symptoms. No history of liver or thyroid or pancreatic disease. No rashes. PHYSICAL EXAMINATION: VITAL SIGNS: His weight is 81.6 kg, temperature 97.6, pulse 57, respiratory rate 16, blood pressure 94/60. GENERAL: He is alert. He is oriented x3. HEENT: Anicteric. Extraocular motions are intact. LYMPHATICS: I appreciate no submandibular, cervical, supraclavicular or epitrochlear adenopathy. There is 1 palpable left axillary lymph node. LUNGS: Clear to auscultation. HEART: Regular rate and rhythm with no gross murmur or gallop. ABDOMEN: Good bowel sounds. I do not appreciate a bruit. ABDOMEN: Tender mostly in the central and upper region with no rebound tenderness. No hepatosplenomegaly are appreciated. EXTREMITIES: No pedal edema, Dupuytren contractures or palmar erythema. LABORATORY STUDIES: White count was 6.8 last evening with a hemoglobin of 13.7 and a platelet count of 277. INR 1.1. Sodium 142, potassium 3.9, BUN 9, creatinine 0.97. Alkaline phosphatase minimally elevated at 119. AST and ALT and bilirubin normal. Lipase and albumin normal. Lactic acid is 0.6. RADIOLOGIC STUDIES: I reviewed all the radiologic imaging with Dr. Neil in Radiology from early December through last night. There was initially a prominent left portal vein clot, which now seems to be fractured into smaller pieces. The December 26, 2017, CT suggests occlusion of the celiac artery with post-occlusion dilation, consistent with median arcuate ligament syndrome. There is no evidence of splenic vein or mesenteric vein disease. The superior mesenteric artery is patent. IMPRESSION: Abdominal pain. There may be two processes. The portal vein clot may cause discomfort, but should not cause the postprandial discomfort or early satiety, or exercise-induced discomfort. This latter complex of symptoms is likely related to median arcuate ligament syndrome based on the CT studies. PLAN: Hematology consult will be requested to evaluate for hypercoagulability states. He has no evidence of liver disease. I have contacted Dr. Anish Aragon to consider possible surgery for median arcuate ligament syndrome. I will follow along closely. The left axillary lymph node can be further evaluated by Dr. Prince. MD YOSI Arellano/DIEUDONNE , 10:09 AM , 10:20 AM
[2018-01-18] MEDS ORDERED: Ciprofloxacin 400 MG/200 ML 400 MG/200 ML PIGGYBACK IV.SIG SCH (12:00)
--- NOTE | 2018-01-18 13:30 | P.PN ---
Subjective Interval history: Follow-up visit portal venous thrombosis, abdominal pain. Patient seen and examined today. Complaints of right upper quadrant pain starting from mid epigastric towards the right side. Also states inguinal pain secondary to his hernia. Otherwise, denies fevers chills nausea vomiting diarrhea. Denies chest pain, palpitations, headaches, dizziness. Denies cough. Denies hematuria , dysuria Physical Exam Vital signs: Vital Signs 01/17/18 21:31 01/18/18 03:57 01/18/18 04:00 Temperature 99.1 F 98.4 F Pulse Rate 76 52 L Respiratory Rate 18 18 16 Blood Pressure 119/63 116/62 Pulse Oximetry 97 97 01/18/18 07:50 01/18/18 12:00 Temperature 97.6 F 97.5 F L Pulse Rate 57 L 57 L Respiratory Rate 16 14 Blood Pressure 94/60 L 132/75 Pulse Oximetry 97 98 Intake & Output 01/17/18 01/18/18 01/18/18 18:59 06:59 18:59 Intake Total 800 / 800 Balance 800 / 800 Weight 81.647 kg Intake: IV 800 / 800 Cipro 400 MG/200 ML Inj 400 mg 200 / 200 In 200 ml @ 200 mls/hr IV.SIG ONCE ONE Rx#:[id number] NS Inj 500 ML @ Wide Open IV. 500 / 500 SIG BOLUS ONE Rx#:[id number] Flagyl 500 MG Inj 100 ML @ 100 100 / 100 mls/hr IV.SIG ONCE ONE Rx#: [id number] Narrative: GENERAL: This is a well-nourished, well-developed patient, in no apparent distress. SKIN: Warm and dry. HEENT: Normocephalic. Pupils equal round and reactive. Nose without bleeding. Airway patent. NECK: Trachea midline. Supple. CARDIOVASCULAR: Regular rate and rhythm without murmurs, gallops, or rubs. RESPIRATORY: Clear to auscultation. Breath sounds equal bilaterally. No wheezes , rales, or rhonchi. GASTROINTESTINAL: Abdomen soft, nondistended. Bowel Sounds normoactive x4. Tender to palpate midepigastric region towards right upper quadrant. MUSCULOSKELETAL: Extremities without clubbing, cyanosis, or edema. NEUROLOGICAL: Awake and alert. Oriented to time, place, person. No focal neuro deficit. Moves all extremities. Normal speech. Results - Labs CBC & Chem 7: 01/17/18 22:25 01/17/18 22:25 Laboratory Results - last 24 hr 01/17/18 01/17/18 01/17/18 22:25 22:25 22:25 WBC 6.8 RBC 4.25 L Hgb 13.7 Hct 39.5 MCV 93.1 MCH 32.2 MCHC 34.6 RDW 14.1 Plt Count 277 MPV 8.7 Neut % (Auto) 65.3 Lymph % (Auto) 21.9 [place] % (Auto) 10.1 H Eos % (Auto) 1.9 Baso % (Auto) 0.8 Neut # (Auto) 4.4 Lymph # (Auto) 1.5 [place] # (Auto) 0.7 Eos # (Auto) 0.1 Baso # (Auto) 0.1 WBC Differential . Differential Comment Auto diff final PT 11.3 INR 1.1 APTT 25.9 Sodium 142 Potassium 3.9 Chloride 107 Carbon Dioxide 27.1 Anion Gap 8 BUN 9 Creatinine 0.97 Estimated GFR 78 L Random Glucose 97 Lactic Acid Calcium 8.6 Total Bilirubin 0.3 AST 36 ALT 42 Alkaline Phosphatase 119 H Total Protein 6.8 Albumin 3.5 Lipase 85 Urine Color Urine Clarity Urine pH Ur Specific [place] Urine Protein Urine Glucose (UA) Urine Ketones Urine Occult Blood Urine Nitrate Urine Bilirubin Urine Urobilinogen Ur Leukocyte Esterase Urine WBC Ur Squamous Epith Cells Urine Mucus Micro UA Comment Urine Culture Comments 01/17/18 01/17/18 22:25 22:45 WBC RBC Hgb Hct MCV MCH MCHC RDW Plt Count MPV Neut % (Auto) Lymph % (Auto) [place] % (Auto) Eos % (Auto) Baso % (Auto) Neut # (Auto) Lymph # (Auto) [place] # (Auto) Eos # (Auto) Baso # (Auto) WBC Differential Differential Comment PT INR APTT Sodium Potassium Chloride Carbon Dioxide Anion Gap BUN Creatinine Estimated GFR Random Glucose Lactic Acid 0.6 Calcium Total Bilirubin AST ALT Alkaline Phosphatase Total Protein Albumin Lipase Urine Color Yellow Urine Clarity Clear Urine pH 6.0 Ur Specific [place] 1.024 Urine Protein Negative Urine Glucose (UA) Negative Urine Ketones Negative Urine Occult Blood Negative Urine Nitrate Negative Urine Bilirubin Negative Urine Urobilinogen 4 or greater Ur Leukocyte Esterase Negative Urine WBC 2 Ur Squamous Epith Cells <1 Urine Mucus Many H Micro UA Comment Culture not ind Urine Culture Comments Culture not ind - Imaging Impressions Abdomen/Pelvis CT 01/17/18 23:11 CONCLUSION: 1. There are areas of portal vein thrombosis again noted. 2. The gallbladder remains unremarkable in appearance. 3. Hepatic steatosis. Assessment and Plan - Assessment (1) Epigastric abdominal pain Code(s): R10.13 - Epigastric pain Status: Acute (2) Portal vein thrombosis Code(s): I81 - Portal vein thrombosis Status: Acute - Plan 62 y/o male with a history of bipolar, and gastritis presented to the ED after being instructed to come to the ED by Dr. Deleon. Patient is complaining of RUQ abdominal tenderness that has been going on for 2 weeks. Portal vein thrombus -CT abdomen reviewed and shows a portal vein thrombosis -Consult GI for evaluation and further recommendation. Seen by Dr. Ramos, recommends GS consult for possible surgery for median arcuate ligament syndrome And hematology for hypercoagulable state. -Full anticoagulation with Lovenox per GI -IV antibiotics Cipro and Flagyl per GI -Pain management with IV Dilaudid -Liquid diet per GI -Repeat labs in AM Bipolar, chronic -Resume home medications Gastritis, chronic -Resume home Protonix and Carafate DVT prophylaxis: Lovenox Code Status: Full code Discussed Condition With: Patient, nursing, Dr. Leach Discharge Planning: Plan to DC home when clinically improved and Cleared by GI. Plan for general surgery intervention.
--- NOTE | 2018-01-18 15:46 | P.CONGS ---
[facility] Gen Surgery Consult Note Consult date: 01/18/18 Reason for consult: abdominal pain Requesting physician: Adrián Ramos Narrative: This is a 52-year-old man with a past medical history bipolar disease, esophagitis and gastritis. The patient is known to Dr. Claros in the outpatient clinic as he has been seeing him for possible repair of bilateral inguinal hernias. The patient was recently in the hospital for generalized abdominal pain. He had an EGD and colonoscopy which showed esophagitis and gastritis. On December [address] abdomen pelvis shows an occlusion of the celiac artery with postocclusion dilatation which is consistent with median arcuate ligament syndrome. The patient continued to have generalized abdominal pain which is increasing over time and with early satiety. He reports he lost about 15 pounds in 2 weeks. The patient saw his primary care yesterday and referred him to Dr. Deleon with gastroenterology. Dr. Deleon reviewed his scans and sent him to the emergency department. A General Surgery consultation has been requested for his recent diagnosis of median arcuate ligament syndrome. <Lyn Zendejas - Last Filed: 01/18/18 16:46> Review of Systems Constitutional: Reports body ache(s), Reports weight loss, Denies headache(s) Eyes: Denies change in vision Ears, Nose, Mouth, and Throat: Denies bad breath Cardiovascular: Denies chest pain, Denies chest pain at rest, Denies chest pain with activity Respiratory: Denies chest congestion, Denies cough Gastrointestinal: Reports abdominal pain, Reports nausea Genitourinary: Denies urinary incontinence Musculoskeletal: Denies abnormal walking, Denies back pain Skin/Breast: Denies lesions Neurologic: Denies behavioral changes Psychiatric: Denies anxiety, Denies confusion Endocrine: Denies cold intolerance, Denies heat intolerance Hematologic/Lymphatic: Denies easy bleeding Allergic/Immunologic: Denies throat swelling, Denies tongue swelling <Lyn Zendejas - Last Filed: 01/18/18 16:46> [facility] - History History Provided By: Patient - Medical History Medical History: Medical History (Last Updated 01/18/18 @ 15:40 by TRISHA Gilbert) Cancer (Acute) Hernia (Acute) Bipolar 1 disorder Esophagitis Gastritis - Surgical History Surgical History: Surgical History (Last Updated 01/18/18 @ 15:41 by TRISHA Gilbert) Carpal tunnel syndrome on both sides (Acute) Fusion of spine of cervical region (Acute) History of facial surgery (Acute) History of knee surgery (Acute) History of lumbar fusion (Acute) History of appendectomy - Family History Family History: Family History (Last Updated 01/18/18 @ 03:51 by TRISHA Jansen) Other No history of heart disease - Tobacco History Second Hand Smoke Exposure: No Smoking Status: Never smoker - Alcohol History How Often Do You Have a Drink Containing Alcohol: Never - Substance Use History Substance History: No History of Abuse - Travel History History of Recent Travel: No Recent Travel in the [place] Within the Last 8 Weeks: No Recent Travel Out of the Country Within the Last 8 Weeks: No - Immunization History Tetanus Immunization: >5 Years Hx Influenza Vaccine This Season: No <Lyn Zendejas - Last Filed: 01/18/18 16:46> - Medical History Medical History: Medical History (Last Updated 01/18/18 @ 15:40 by TRISHA Gilbert) Cancer (Acute) Hernia (Acute) Bipolar 1 disorder Esophagitis Gastritis - Surgical History Surgical History: Surgical History (Last Updated 01/18/18 @ 15:41 by TRISHA Gilbert) Carpal tunnel syndrome on both sides (Acute) Fusion of spine of cervical region (Acute) History of facial surgery (Acute) History of knee surgery (Acute) History of lumbar fusion (Acute) History of appendectomy - Family History Family History: Family History (Last Updated 01/18/18 @ 03:51 by TRISHA Jansen) Other No history of heart disease <Maryanne Ramirez - Last Filed: 01/18/18 17:38> Medications and Allergies Active Medications: Active Medications Diazepam (Valium) 10 mg PO BID PRN PRN Reason: ANXIETY Enoxaparin Sodium (Lovenox Inj) 80 mg SQ Q12H [facility] Gabapentin (Neurontin) 300 mg PO BID [facility] Last Admin: 01/18/18 08:49 Dose: 300 mg Hydromorphone HCl (Dilaudid Pf Inj) 1 mg IV.PUSH Q4H PRN PRN Reason: ABDOMINAL PAIN 1-10 Last Admin: 01/18/18 14:25 Dose: 1 mg Ciprofloxacin/Dextrose (Cipro 400 Mg/200 Ml Inj) 400 mg in 200 mls @ 200 mls/ hr IV.SIG Q12H [facility] Last Admin: 01/18/18 15:05 Dose: 200 mls/hr Metronidazole/Sodium Chloride (Flagyl 500 Mg Inj) 100 mls @ 100 mls/hr IV.SIG Q8H [facility] Last Admin: 01/18/18 15:06 Dose: 100 mls/hr Montelukast Sodium (Singulair) 10 mg PO QPM [facility] Ondansetron HCl (Zofran Odt) 4 mg PO Q6H PRN PRN Reason: NAUSEA OR VOMITING Pantoprazole Sodium (Protonix) 40 mg PO BID [facility] Last Admin: 01/18/18 08:49 Dose: 40 mg Quetiapine Fumarate (Seroquel) 100 mg PO BID [facility] Last Admin: 01/18/18 08:49 Dose: 100 mg Sodium Chloride (Ns Flush) 2 ml IV.FLUSH PRN PRN PRN Reason: FLUSH AFTER USING IV ACCESS Last Admin: 01/18/18 08:50 Dose: 2 ml Temazepam (Restoril) 30 mg PO [facility] Trazodone HCl (Desyrel) 100 mg PO HS [facility] <Lyn Zendejas - Last Filed: 01/18/18 16:46> Active Medications: Active Medications Diazepam (Valium) 10 mg PO BID PRN PRN Reason: ANXIETY Enoxaparin Sodium (Lovenox Inj) 80 mg SQ Q12H [facility] Last Admin: 01/18/18 16:04 Dose: Not Given Gabapentin (Neurontin) 300 mg PO BID [facility] Last Admin: 01/18/18 08:49 Dose: 300 mg Hydromorphone HCl (Dilaudid Pf Inj) 1 mg IV.PUSH Q4H PRN PRN Reason: ABDOMINAL PAIN 1-10 Last Admin: 01/18/18 11:00 Dose: 1 mg Metronidazole/Sodium Chloride (Flagyl 500 Mg Inj) 100 mls @ 100 mls/hr IV.SIG Q8H [facility] Last Infusion: 01/18/18 16:10 Dose: Infused Ciprofloxacin/Dextrose (Cipro 400 Mg/200 Ml Inj) 400 mg in 200 mls @ 200 mls/ hr IV.SIG Q12H [facility] Montelukast Sodium (Singulair) 10 mg PO QPM [facility] Ondansetron HCl (Zofran Odt) 4 mg PO Q6H PRN PRN Reason: NAUSEA OR VOMITING Pantoprazole Sodium (Protonix) 40 mg PO BID [facility] Last Admin: 01/18/18 08:49 Dose: 40 mg Quetiapine Fumarate (Seroquel) 100 mg PO BID [facility] Last Admin: 01/18/18 08:49 Dose: 100 mg Sodium Chloride (Ns Flush) 2 ml IV.FLUSH PRN PRN PRN Reason: FLUSH AFTER USING IV ACCESS Last Admin: 01/18/18 08:50 Dose: 2 ml Temazepam (Restoril) 30 mg PO [facility] Trazodone HCl (Desyrel) 100 mg PO HS [facility] <White,Maryanne - Last Filed: 01/18/18 17:38> Allergies Allergy/AdvReac Type Severity Reaction Status Date / Time diphenhydramine Allergy Unknown Irritation Verified 01/17/18 21:31 Home Medications Medication Instructions Recorded Confirmed Type diazepam [Valium] 10 mg PO BID PRN 12/26/17 01/17/18 History gabapentin 300 mg PO BID 12/26/17 01/17/18 History montelukast 10 mg PO QPM 12/26/17 01/17/18 History quetiapine [Seroquel XR] 200 mg PO HS 12/26/17 01/17/18 History temazepam 30 mg PO HS 12/26/17 01/17/18 History trazodone 100 mg PO HS 12/26/17 01/17/18 History Exam Vital signs: Vital Signs 01/17/18 21:31 01/18/18 03:57 01/18/18 04:00 Temperature 99.1 F 98.4 F Pulse Rate 76 52 L Respiratory Rate 18 18 16 Blood Pressure 119/63 116/62 Pulse Oximetry 97 97 01/18/18 07:50 01/18/18 12:00 Temperature 97.6 F 97.5 F L Pulse Rate 57 L 57 L Respiratory Rate 16 14 Blood Pressure 94/60 L 132/75 Pulse Oximetry 97 98 Intake & Output 01/17/18 01/18/18 01/18/18 18:59 06:59 18:59 Intake Total 800 / 800 100 / 100 Balance 800 / 800 100 / 100 Weight 81.647 kg Intake: IV 800 / 800 100 / 100 Cipro 400 MG/200 ML Inj 400 mg 200 / 200 In 200 ml @ 200 mls/hr IV.SIG ONCE ONE Rx#:[id number] NS Inj 500 ML @ Wide Open IV. 500 / 500 SIG BOLUS ONE Rx#:[id number] Flagyl 500 MG Inj 100 ML @ 100 100 / 100 100 / 100 mls/hr IV.SIG Q8H [facility] Rx#: [id number] Narrative: GENERAL: Very pleasant 62 year old male resting in bed in no acute distress. SKIN: Warm and dry. HEAD: Atraumatic. Normocephalic. EYES: Pupils equal and round. No scleral icterus. No injection or drainage. ENT: No nasal bleeding or discharge. Mucous membranes pink and moist. NECK: Trachea midline. CARDIOVASCULAR: Regular rate and rhythm. RESPIRATORY: No accessory muscle use. Clear to auscultation. Breath sounds equal bilaterally. GASTROINTESTINAL: Abdomen soft, nondistended. Generalized abdominal pain with palpation. He has a small scar in his infraumbilical region. He had a LEFT sided hernia and a small RIGHT sided hernia. MUSCULOSKELETAL: Extremities without clubbing, cyanosis, or edema. No obvious deformities. He does have a removal black orthopedic brace on his LEFT wrist. NEUROLOGICAL: Awake and alert. No obvious cranial nerve deficits. Motor grossly within normal limits. Five out of 5 muscle strength in the arms and legs. Normal speech. PSYCHIATRIC: Appropriate mood and affect; insight and judgment normal. <Lyn Zendejas - Last Filed: 01/18/18 16:46> Vital signs: Vital Signs 01/17/18 21:31 01/18/18 03:57 01/18/18 04:00 Temperature 99.1 F 98.4 F Pulse Rate 76 52 L Respiratory Rate 18 18 16 Blood Pressure 119/63 116/62 Pulse Oximetry 97 97 01/18/18 07:50 01/18/18 12:00 01/18/18 16:00 Temperature 97.6 F 97.5 F L 97.4 F L Pulse Rate 57 L 57 L 61 Respiratory Rate 16 14 16 Blood Pressure 94/60 L 132/75 127/69 Pulse Oximetry 97 98 97 Intake & Output 01/17/18 01/18/18 01/18/18 18:59 06:59 18:59 Intake Total 800 / 800 200 / 200 Balance 800 / 800 200 / 200 Weight 81.647 kg Intake: IV 800 / 800 200 / 200 Cipro 400 MG/200 ML Inj 400 mg 200 / 200 In 200 ml @ 200 mls/hr IV.SIG ONCE ONE Rx#:[id number] NS Inj 500 ML @ Wide Open IV. 500 / 500 SIG BOLUS ONE Rx#:[id number] Flagyl 500 MG Inj 100 ML @ 100 100 / 100 200 / 200 mls/hr IV.SIG Q8H [facility] Rx#: [id number] <Maryanne Ramirez - Last Filed: 01/18/18 17:38> Results - Labs 01/17/18 22:25 01/17/18 22:25 Abnormal lab results 01/17/18 01/17/18 01/17/18 Range/Units 22:25 22:25 22:45 RBC 4.25 L (4.50-5.90) mil/mm3 [place] % (Auto) 10.1 H (0.0-8.0) % Estimated GFR 78 L (>89) mL/min Alkaline Phosphatase 119 H (45-117) U/L Urine Mucus Many H (Occasional) /lpf Diabetes panel 01/17/18 Range/Units 22:25 Sodium 142 (136-145) meq/L Potassium 3.9 (3.5-5.1) meq/L Chloride 107 (98-107) meq/L Carbon Dioxide 27.1 (21.0-32.0) meq/L BUN 9 (7-18) mg/dL Creatinine 0.97 (0.60-1.30) mg/dL Calcium 8.6 (8.5-10.1) mg/dL AST 36 (15-37) U/L ALT 42 (12-78) U/L Alkaline Phosphatase 119 H (45-117) U/L Total Protein 6.8 (6.4-8.2) g/dL Albumin 3.5 (3.4-5.0) g/dL Calcium panel 01/17/18 Range/Units 22:25 Calcium 8.6 (8.5-10.1) mg/dL Albumin 3.5 (3.4-5.0) g/dL Pituitary panel 01/17/18 Range/Units 22:25 Sodium 142 (136-145) meq/L Potassium 3.9 (3.5-5.1) meq/L Chloride 107 (98-107) meq/L Carbon Dioxide 27.1 (21.0-32.0) meq/L BUN 9 (7-18) mg/dL Creatinine 0.97 (0.60-1.30) mg/dL Calcium 8.6 (8.5-10.1) mg/dL Adrenal panel 01/17/18 Range/Units 22:25 Sodium 142 (136-145) meq/L Potassium 3.9 (3.5-5.1) meq/L Chloride 107 (98-107) meq/L Carbon Dioxide 27.1 (21.0-32.0) meq/L BUN 9 (7-18) mg/dL Creatinine 0.97 (0.60-1.30) mg/dL Calcium 8.6 (8.5-10.1) mg/dL Total Bilirubin 0.3 (0.2-1.0) mg/dL AST 36 (15-37) U/L ALT 42 (12-78) U/L Alkaline Phosphatase 119 H (45-117) U/L Total Protein 6.8 (6.4-8.2) g/dL Albumin 3.5 (3.4-5.0) g/dL All other labs normal. - Imaging CT scan - abdomen: report reviewed <Lyn Zendejas - Last Filed: 01/18/18 16:46> - Labs 01/17/18 22:25 01/17/18 22:25 Abnormal lab results 01/17/18 01/17/18 01/17/18 Range/Units 22:25 22:25 22:45 RBC 4.25 L (4.50-5.90) mil/mm3 [place] % (Auto) 10.1 H (0.0-8.0) % Estimated GFR 78 L (>89) mL/min Alkaline Phosphatase 119 H (45-117) U/L Urine Mucus Many H (Occasional) /lpf Diabetes panel 01/17/18 Range/Units 22:25 Sodium 142 (136-145) meq/L Potassium 3.9 (3.5-5.1) meq/L Chloride 107 (98-107) meq/L Carbon Dioxide 27.1 (21.0-32.0) meq/L BUN 9 (7-18) mg/dL Creatinine 0.97 (0.60-1.30) mg/dL Calcium 8.6 (8.5-10.1) mg/dL AST 36 (15-37) U/L ALT 42 (12-78) U/L Alkaline Phosphatase 119 H (45-117) U/L Total Protein 6.8 (6.4-8.2) g/dL Albumin 3.5 (3.4-5.0) g/dL Calcium panel 01/17/18 Range/Units 22:25 Calcium 8.6 (8.5-10.1) mg/dL Albumin 3.5 (3.4-5.0) g/dL Pituitary panel 01/17/18 Range/Units 22:25 Sodium 142 (136-145) meq/L Potassium 3.9 (3.5-5.1) meq/L Chloride 107 (98-107) meq/L Carbon Dioxide 27.1 (21.0-32.0) meq/L BUN 9 (7-18) mg/dL Creatinine 0.97 (0.60-1.30) mg/dL Calcium 8.6 (8.5-10.1) mg/dL Adrenal panel 01/17/18 Range/Units 22:25 Sodium 142 (136-145) meq/L Potassium 3.9 (3.5-5.1) meq/L Chloride 107 (98-107) meq/L Carbon Dioxide 27.1 (21.0-32.0) meq/L BUN 9 (7-18) mg/dL Creatinine 0.97 (0.60-1.30) mg/dL Calcium 8.6 (8.5-10.1) mg/dL Total Bilirubin 0.3 (0.2-1.0) mg/dL AST 36 (15-37) U/L ALT 42 (12-78) U/L Alkaline Phosphatase 119 H (45-117) U/L Total Protein 6.8 (6.4-8.2) g/dL Albumin 3.5 (3.4-5.0) g/dL All other labs normal. <Maryanne Ramirez - Last Filed: 01/18/18 17:38> Assessment and Plan - Assessment (1) 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 Claros next week and case can be discussed with Dr. Aragon -No acute surgical interventions needed at this time - Plan Discussed Condition With: Dr. Ramirez Mr. Ruffin <Lyn Zendejas - Last Filed: 01/18/18 16:46> - Assessment (1) Median arcuate ligament syndrome Code(s): I77.4 - Celiac artery compression syndrome Status: Acute - Plan Case reviewed and DW Dr. Ramos Very complex history and extensive work up. Describes constant burning type pain that gets worse with eating. Of note, he changed his history and description of the pain several times during my interview. Mentioned Dilaudid several times and was asking when his next dose was. Also stated he was hungry and wanted regular food. Asked me to order him a regular diet. MALS is a very rare disorder and is often a diagnosis of last exclusion. I would favor further work up with MRA or even direct angiography to further evaluate the celiac trunk. Also we need to work up and explain his portal vein thrombosis. The venous congestion may be contributing to his pain. Will order MRA and await Hematology consultation. Patient is known to Dr Claros and he would like to FU with him if office. Dr. Claros can review work up and PORTILLO Aragon to see if arcuate ligament release is indicated. Will FU tomorrow. MARYANNE RAMIREZ MD, FACS - Attending Attestation I CERTIFY AND ATTEST THAT I PERSONALLY EXAMINED THE PATIENT IN THEIR ROOM. I REVIEWED CARE PLAN WITH THEM. THE RESIN PAINTER DOCUMENTED OUR VISIT AND ENTERED ORDERS UNDER MY DIRECT SUPERVISION. MARYANNE RAMIREZ MD, FACS <Maryanne Ramirez - Last Filed: 01/18/18 17:38>
[2018-01-18] MEDS: Enoxaparin Inj 80 MG/0.8 ML Syringe SQ SCH ×2 (16:04→23:00)
[2018-01-18] MEDS: traZODone 100 MG Tablet PO SCH (20:20)
[2018-01-18] MEDS: Temazepam 15 MG Capsule PO SCH (20:20)
[2018-01-18] MEDS ORDERED: Gadobutrol PF 10 MMOL/10 ML Vial (for RAD) IV.SIG ONE (21:00)
[2018-01-18] MEDS: Montelukast 10 MG Tablet PO SCH (21:06)
--- NOTE | 2018-01-18 22:35 | MR ---
EXAM DATE: 01/18/2018 9:58 PM EDT AGE/SEX: 62 years / Male INDICATIONS: Abdominal pain. Median arcuate ligament syndrome. CLINICAL DATA: This is the patient's initial encounter. Patient reports that signs and symptoms have been present for 2 days and indicates a pain score of 5/10. MEDICAL/SURGICAL HISTORY: None. Fusion, lumbar. Bilateral knee surgery. Shoulder surgery. Nos e surgery. Carpal tunnel surgery. COMPARISON: [facility] [place], CT ABDOMEN & PELVIS W CONTRAST, 01/17/2018. . TECHNIQUE: 20 ml Gadavist (gadobutrol) contrast infused MR angiography (single exam dose) was perfo rmed with digital subtraction. The data was postprocessed with a variety of visualization algorithms including full-volume maximum-intensity projection, multiplanar sliding thin slab reformation, and c urved planar reformation. FINDINGS: There is some focal stenosis of the proximal celiac artery which is displaced slightly inferiorly. Th ere is some poststenotic dilatation of the celiac artery. The appearance is characteristic of median arcuate ligament syndrome. Thrombus is noted in the portal vein as seen on recent CT examination. There does appear to be some d iminished perfusion of the left lobe of the liver. The superior mesenteric and inferior mesenteric arteries appear patent. The renal arteries appear pat ent. CONCLUSION: 1. Focal stenosis proximal celiac artery with some inferior displacement in a pattern most character istic of median arcuate ligament syndrome. 2. Portal vein thrombosis extending into branch vessels with diminished perfusion noted in the left lobe of the liver. Electronically signed by: Ish Dixon MD 01/18/2018 10:34 PM EDT
[2018-01-19] MEDS: Ciprofloxacin 400 MG/200 ML 400 MG/200 ML PIGGYBACK IV.SIG SCH ×2 (03:57→15:00)
[2018-01-19 07:49] LABS: Baso % (Auto) 0.3 % (0.0-2.0); Eos # (Auto) 0.2 th/mm3 (0.0-0.4); Hematocrit 39.1 % (39.0-51.0); Hemoglobin 13.3 gm/dL (13.0-17.0); Lymph # (Auto) 1.2 th/mm3 (1.0-4.8); Lymph % (Auto) 22.5 % (9.0-44.0); Mean Corpuscular Hemoglobin 31.5 pg (27.0-34.0); Mean Corpuscular Volume 92.8 fL (80.0-100.0); Mean Platelet Volume 8.9 fL (7.0-11.0); Mono # (Auto) 0.5 th/mm3 (0.0-0.9); Mono % (Auto) 9.9 % (0.0-8.0); Neut # (Auto) 3.5 th/mm3 (1.8-7.7); Neut % (Auto) 64.3 % (16.0-70.0); Platelet Count 223 th/mm3 (150-450); Red Blood Count 4.22 mil/mm3 (4.50-5.90); Red Cell Distribution Width 13.8 % (11.6-17.2); White Blood Count 5.5 th/mm3 (4.0-11.0)
[2018-01-19 08:16] LABS: Albumin 3.1 g/dL (3.4-5.0); Anion Gap 8 meq/L (5-15); Aspartate Aminotransferase 27 U/L (15-37); Blood Urea Nitrogen 5 mg/dL (7-18); Calcium 8.4 mg/dL (8.5-10.1); Carbon Dioxide 27.3 meq/L (21.0-32.0); Chloride 106 meq/L (98-107); Glomerular Filtration Rate Greater Than 89 mL/min (>89); Potassium 3.7 meq/L (3.5-5.1); Sodium 141 meq/L (136-145)
[2018-01-19 08:19] LABS: Glucose,Random 88 mg/dL (74-106)
[2018-01-19 08:25] LABS: Alanine Aminotransferase 34 U/L (12-78); Alkaline Phosphatase 105 U/L (45-117)
[2018-01-19] MEDS: Gabapentin 300 MG Capsule PO SCH ×2 (08:40→23:00)
[2018-01-19] MEDS: QUEtiapine 100 MG Tablet PO SCH ×2 (08:41→23:00)
[2018-01-19] MEDS: HYDROmorphone PF Inj 2 MG/ML Vial IV.PUSH PRN ×2 (09:54→16:35)
[2018-01-19] MEDS: Enoxaparin Inj 80 MG/0.8 ML Syringe SQ SCH ×2 (10:26→23:02)
--- NOTE | 2018-01-19 11:48 | P.PNGS ---
<Lyn Zendejas - Last Filed: 01/19/18 11:49> Subjective Interval history: Resting in bed; c/o bump on the back of his head. Physical Exam Vital signs: Vital Signs 01/18/18 12:00 01/18/18 16:00 01/18/18 20:00 Temperature 97.5 F L 97.4 F L 98.7 F Pulse Rate 57 L 61 62 Respiratory Rate 14 16 16 Blood Pressure 132/75 127/69 118/71 Pulse Oximetry 98 97 100 01/18/18 23:45 01/19/18 04:00 01/19/18 07:28 Temperature 98.3 F 97.8 F 97.8 F Pulse Rate 59 L 62 60 Respiratory Rate 17 16 16 Blood Pressure 112/62 107/59 L 92/53 L Pulse Oximetry 95 98 95 01/19/18 09:55 Temperature Pulse Rate 70 Respiratory Rate 18 Blood Pressure 117/89 Pulse Oximetry 100 Intake & Output 01/18/18 01/19/18 01/19/18 18:59 06:59 18:59 Intake Total 850 / 850 300 / 300 100 / 100 Output Total 1000 / 1000 Balance -150 / -150 300 / 300 100 / 100 Intake: IV 400 / 400 300 / 300 100 / 100 Cipro 400 MG/200 ML Inj 400 mg 200 / 200 In 200 ml @ 200 mls/hr IV.SIG Q12H [facility] Rx#:[id number] Flagyl 500 MG Inj 100 ML @ 100 200 / 200 100 / 100 100 / 100 mls/hr IV.SIG Q8H ALEXIA Rx#: [id number] Oral 450 / 450 Output: Urine 1000 / 1000 Other: Date of Last Bowel Movement 01/17/18 01/17/18 Narrative: Alert and awake Cardio: RRR Resp: CTAB Abd: soft; tender to palpation Assessment and Plan - Assessment (1) 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 Claros next week and case can be discussed with Dr. Aragon -No acute surgical interventions needed at this time - Plan 62 year old male with abdominal pain; ? median arcuate ligament syndrome; portal venous thrombus -Regular diet -Await hematology consult -On Lovenox -Transition to PO pain meds -Plan for follow up next week with Dr. Claros who can discuss with Dr. Aragon -Discussed with TRISHA Loyd -No acute surgical plans at this time Discussed Condition With: Dr. Ely RICO Mr. Ruffin and son at bedside <ElyWang - Last Filed: 01/19/18 12:27> Physical Exam Vital signs: Vital Signs 01/18/18 16:00 01/18/18 20:00 01/18/18 23:45 Temperature 97.4 F L 98.7 F 98.3 F Pulse Rate 61 62 59 L Respiratory Rate 16 16 17 Blood Pressure 127/69 118/71 112/62 Pulse Oximetry 97 100 95 01/19/18 04:00 01/19/18 07:28 01/19/18 09:55 Temperature 97.8 F 97.8 F Pulse Rate 62 60 70 Respiratory Rate 16 16 18 Blood Pressure 107/59 L 92/53 L 117/89 Pulse Oximetry 98 95 100 Intake & Output 01/18/18 01/19/18 01/19/18 18:59 06:59 18:59 Intake Total 850 / 850 300 / 300 100 / 100 Output Total 1000 / 1000 Balance -150 / -150 300 / 300 100 / 100 Intake: IV 400 / 400 300 / 300 100 / 100 Cipro 400 MG/200 ML Inj 400 mg 200 / 200 In 200 ml @ 200 mls/hr IV.SIG Q12H [facility] Rx#:[id number] Flagyl 500 MG Inj 100 ML @ 100 200 / 200 100 / 100 100 / 100 mls/hr IV.SIG Q8H ALEX[facility] Rx#: [id number] Oral 450 / 450 Output: Urine 1000 / 1000 Other: Date of Last Bowel Movement 01/17/18 01/17/18 Assessment and Plan - Assessment (1) 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 Although his MRA is concerning for MALS his clinical history is suspect. He told me that food makes his abdominal pain BETTER. Stated the only thing that helped him was Dilaudid. His presentation at 62 yo is also unusual as he denies any abdominal pain previously. I am still concerned about his portal thrombosis and why this occured. Would recommend treatment of this before considering ligation of the arcuate ligament. Pt will FU with Dr. Claros in office next week and he can review case with Dr. Aragon to see if he is a surgical candidate. Ok to DC with po pain meds and FU Dr. Claros next week. Wang Graves MD FACS
--- NOTE | 2018-01-19 13:46 | P.PN ---
Subjective Interval history: Follow-up visit portal venous thrombosis, abdominal pain. Patient seen and examined today. Continue to complain right upper quadrant pain. Still needing IV Dilaudid. Patient and son at the bedside states that he was seen by Dr. Ramos this morning and his cleared him for discharge to follow up in his office. Denies fevers chills nausea vomiting diarrhea. Denies chest pain, palpitations, headaches, dizziness. Denies cough. Denies hematuria, dysuria Physical Exam Vital signs: Vital Signs 01/18/18 16:00 01/18/18 20:00 01/18/18 23:45 Temperature 97.4 F L 98.7 F 98.3 F Pulse Rate 61 62 59 L Respiratory Rate 16 16 17 Blood Pressure 127/69 118/71 112/62 Pulse Oximetry 97 100 95 01/19/18 04:00 01/19/18 07:28 01/19/18 09:55 Temperature 97.8 F 97.8 F Pulse Rate 62 60 70 Respiratory Rate 16 16 18 Blood Pressure 107/59 L 92/53 L 117/89 Pulse Oximetry 98 95 100 01/19/18 12:00 Temperature 98.0 F Pulse Rate 60 Respiratory Rate 14 Blood Pressure 102/56 L Pulse Oximetry 96 Intake & Output 01/18/18 01/19/18 01/19/18 18:59 06:59 18:59 Intake Total 850 / 850 300 / 300 100 / 100 Output Total 1000 / 1000 Balance -150 / -150 300 / 300 100 / 100 Intake: IV 400 / 400 300 / 300 100 / 100 Cipro 400 MG/200 ML Inj 400 mg 200 / 200 In 200 ml @ 200 mls/hr IV.SIG Q12H [facility]LEX[facility] Rx#:[id number] Flagyl 500 MG Inj 100 ML @ 100 200 / 200 100 / 100 100 / 100 mls/hr IV.SIG Q8H ALEX[facility] Rx#: [id number] Oral 450 / 450 Output: Urine 1000 / 1000 Other: Date of Last Bowel Movement 01/17/18 01/17/18 Narrative: GENERAL: This is a well-nourished, well-developed patient, in no apparent distress. SKIN: Warm and dry. HEENT: Normocephalic. Pupils equal round and reactive. Nose without bleeding. Airway patent. NECK: Trachea midline. Supple. CARDIOVASCULAR: Regular rate and rhythm without murmurs, gallops, or rubs. RESPIRATORY: Clear to auscultation. Breath sounds equal bilaterally. No wheezes , rales, or rhonchi. GASTROINTESTINAL: Abdomen soft, nondistended. Bowel Sounds normoactive x4. Tender to palpate midepigastric region towards right upper quadrant. MUSCULOSKELETAL: Extremities without clubbing, cyanosis, or edema. NEUROLOGICAL: Awake and alert. Oriented to time, place, person. No focal neuro deficit. Moves all extremities. Normal speech. Results - Labs CBC & Chem 7: 01/20/18 04:39 01/20/18 04:39 Laboratory Results - last 24 hr 01/19/18 01/19/18 06:15 06:15 WBC 5.5 RBC 4.22 L Hgb 13.3 Hct 39.1 MCV 92.8 MCH 31.5 MCHC 34.0 RDW 13.8 Plt Count 223 MPV 8.9 Neut % (Auto) 64.3 Lymph % (Auto) 22.5 [place] % (Auto) 9.9 H Eos % (Auto) 3.0 Baso % (Auto) 0.3 Neut # (Auto) 3.5 Lymph # (Auto) 1.2 [place] # (Auto) 0.5 Eos # (Auto) 0.2 Baso # (Auto) 0.0 WBC Differential . Differential Comment Auto diff final Sodium 141 Potassium 3.7 Chloride 106 Carbon Dioxide 27.3 Anion Gap 8 BUN 5 L Creatinine 0.85 Estimated GFR Greater than 89 Random Glucose 88 Calcium 8.4 L Total Bilirubin 0.4 Direct Bilirubin 0.1 Indirect Bilirubin 0.3 AST 27 ALT 34 Alkaline Phosphatase 105 Total Protein 6.0 L D Albumin 3.1 L - Imaging Impressions Abdomen MRA 01/18/18 00:00 CONCLUSION: 1. Focal stenosis proximal celiac artery with some inferior displacement in a pattern most characteristic of median arcuate ligament syndrome. 2. Portal vein thrombosis extending into branch vessels with diminished perfusion noted in the left lobe of the liver. Assessment and Plan - Assessment (1) Epigastric abdominal pain Code(s): R10.13 - Epigastric pain Status: Acute (2) Portal vein thrombosis Code(s): I81 - Portal vein thrombosis Status: Acute - Plan 62 y/o male with a history of bipolar, and gastritis presented to the ED after being instructed to come to the ED by Dr. Deleon. Patient is complaining of RUQ abdominal tenderness that has been going on for 2 weeks. Portal vein thrombus -CT abdomen reviewed and shows a portal vein thrombosis -Consult GI for evaluation and further recommendation. Seen by Dr. Ramos, recommends GS consult for possible surgery for median arcuate ligament syndrome And hematology for hypercoagulable state. -Full anticoagulation with Lovenox per GI -IV antibiotics Cipro and Flagyl per GI -Pain management switch to oxycodone PO, IV Dilaudid breakthrough. -Spoke with general surgery they did MRA for the patient and will need to follow-up in their office. Clear for discharge. -Abdominal MRA showed focal stenosis proximal celiac artery with some inferior displacement in a pattern most characteristic of median arcuate ligament syndrome. 2. Portal vein thrombosis extending into branch vessels with diminished perfusion noted in the left lobe of the liver -Initial INR within normal, CMP was normal, LFTs within normal. -Pending hematology consult. Bipolar, chronic -Resume home medications Gastritis, chronic -Resume home Protonix and Carafate DVT prophylaxis: Lovenox Code Status: Full Code Discussed Condition With: Patient, nursing, GS Discharge Planning: Plan to DC home when clinically improved and Cleared by GI, GS. Needs hematology
[2018-01-19] MEDS ORDERED: Naloxone Inj 0.4 MG/ML Vial IV.PUSH PRN (15:48)
--- NOTE | 2018-01-19 16:10 | P.PNGI ---
Subjective Interval history: Still with abd pain, especially post-prandially. Dilaudid helps significantly. Physical Exam Vital signs: Vital Signs 01/18/18 20:00 01/18/18 23:45 01/19/18 04:00 Temperature 98.7 F 98.3 F 97.8 F Pulse Rate 62 59 L 62 Respiratory Rate 16 17 16 Blood Pressure 118/71 112/62 107/59 L Pulse Oximetry 100 95 98 01/19/18 07:28 01/19/18 09:55 01/19/18 12:00 Temperature 97.8 F 98.0 F Pulse Rate 60 70 60 Respiratory Rate 16 18 14 Blood Pressure 92/53 L 117/89 102/56 L Pulse Oximetry 95 100 96 Intake & Output 01/18/18 01/19/18 01/19/18 18:59 06:59 18:59 Intake Total 850 / 850 300 / 300 100 / 100 Output Total 1000 / 1000 Balance -150 / -150 300 / 300 100 / 100 Intake: IV 400 / 400 300 / 300 100 / 100 Cipro 400 MG/200 ML Inj 400 mg 200 / 200 In 200 ml @ 200 mls/hr IV.SIG Q12H [facility] Rx#:[id number] Flagyl 500 MG Inj 100 ML @ 100 200 / 200 100 / 100 100 / 100 mls/hr IV.SIG Q8H [facility]LEX[facility] Rx#: [id number] Oral 450 / 450 Output: Urine 1000 / 1000 Other: Date of Last Bowel Movement 01/17/18 01/17/18 - Routine Neurological Exam Present: alert, oriented X3 Results - Labs CBC & Chem 7: 01/19/18 06:15 01/19/18 06:15 Laboratory Results - last 24 hr 01/19/18 01/19/18 06:15 06:15 WBC 5.5 RBC 4.22 L Hgb 13.3 Hct 39.1 MCV 92.8 MCH 31.5 MCHC 34.0 RDW 13.8 Plt Count 223 MPV 8.9 Neut % (Auto) 64.3 Lymph % (Auto) 22.5 [place] % (Auto) 9.9 H Eos % (Auto) 3.0 Baso % (Auto) 0.3 Neut # (Auto) 3.5 Lymph # (Auto) 1.2 [place] # (Auto) 0.5 Eos # (Auto) 0.2 Baso # (Auto) 0.0 WBC Differential . Differential Comment Auto diff final Sodium 141 Potassium 3.7 Chloride 106 Carbon Dioxide 27.3 Anion Gap 8 BUN 5 L Creatinine 0.85 Estimated GFR Greater than 89 Random Glucose 88 Calcium 8.4 L Total Bilirubin 0.4 Direct Bilirubin 0.1 Indirect Bilirubin 0.3 AST 27 ALT 34 Alkaline Phosphatase 105 Total Protein 6.0 L D Albumin 3.1 L - Imaging Impressions Abdomen MRA 01/18/18 00:00 CONCLUSION: 1. Focal stenosis proximal celiac artery with some inferior displacement in a pattern most characteristic of median arcuate ligament syndrome. 2. Portal vein thrombosis extending into branch vessels with diminished perfusion noted in the left lobe of the liver. Assessment and Plan (1) Epigastric abdominal pain Status: Acute Code(s): R10.13 - Epigastric pain - Plan He has portal vein thrombosis with apparent fragmentation of the initially large left portal vein clot. He has median arcuate ligament syndrome. I reviewed the MRA with Dr. Neil. Awaiting hematology evaluation to help coordinate order of treatment of these two conditions. I have nothing else to offer from the GI standpoint. Clear liquid ( including clear liquid Ensure) would be safer than a solid diet; grazing would be beneficial. Will see PRN.
[2018-01-19] MEDS: Montelukast 10 MG Tablet PO SCH (17:39)
[2018-01-19] MEDS: Temazepam 15 MG Capsule PO SCH (23:00)
[2018-01-19] MEDS: traZODone 100 MG Tablet PO SCH (23:01)
[2018-01-20] MEDS: HYDROmorphone PF Inj 2 MG/ML Vial IV.PUSH PRN ×2 (00:38→05:03)
--- NOTE | 2018-01-20 01:29 | MB ---
cc: Demetrio Prince MD DATE: 01/19/2018 REASON FOR CONSULTATION: Patient with the diagnosis of portal vein thrombosis. HISTORY OF PRESENT ILLNESS: This is a 62-year-old male with a history of bipolar disorder and gastritis who presented to the emergency room with complaints of right upper quadrant abdominal pain which began approximately 2 weeks ago. This was a constant stabbing pain which was exacerbated by movement and oral intake. He also had nausea. The patient was evaluated by GI surgery as well as GI. He did have an abdominal ultrasound as well as an abdominal CT scan on admission. Imaging revealed areas of portal vein thrombosis in the proximal right and left portal vein. MRA of the abdomen was also completed; this showed focal stenosis of the proximal celiac artery with some inferior displacement in a pattern most consistent with median arcuate ligament syndrome. There is also portal vein thrombosis extending into branch vessels with a diminished perfusion noted in the left lobe of the liver. The patient has been started on anticoagulation. He has been evaluated by Surgery, who have recommended conservative management and outpatient followup. Hematology has been consulted to make further recommendations regarding portal vein thrombosis. The patient continues to have abdominal pain, which is exacerbated by movement. He has been receiving IV Dilaudid 1 mg every 4 hours. He is also on Valium 10 mg b.i.d. for anxiety. Additionally, oxycodone 10 mg p.o. every 4 hours p.r.n. has also been given. The patient is currently on Lovenox 80 mg subcutaneously b.i.d. REVIEW OF SYSTEMS: A comprehensive review of system was completed which is negative except as per the HPI. PAST MEDICAL HISTORY: The patient has a remote past history of DVT involving the left lower extremity. He states that he had some sort of surgery in 1969 and developed a blood clot. He does not remember how this was treated. History of bipolar disorder, history of hernia. PAST SURGICAL HISTORY: Carpal tunnel release, both hands; fusion of the spine of the cervical region, status post surgery; history of facial surgery, knee arthroplasty, history of lumbar fusion surgery. FAMILY HISTORY: Reviewed and is noncontributory to this admission. SOCIAL HISTORY: He does not smoke cigarettes, does not drink alcohol. No illicit drug use. MEDICATIONS: 1. Cipro 400 mg every 12 hours. 2. Valium 10 mg p.o. b.i.d. 3. Lovenox 80 mg subcutaneous every 12 hours. 4. Neurontin 300 mg p.o. b.i.d. 5. Dilaudid 1 mg IV every 4 hours p.r.n. 6. Flagyl. 7. Singulair 10 mg p.o. q. p.m. 8. Zofran 4 mg p.o. every 6 hours p.r.n. 9. Roxicodone 5 mg p.o. every 4 hours p.r.n. 10. Protonix 40 mg p.o. b.i.d. 11. Temazepam 30 mg p.o. at bedtime. 12. Trazodone 100 mg p.o. at bedtime. ALLERGIES: HE IS ALLERGIC TO DIPHENHYDRAMINE. PHYSICAL EXAMINATION: VITAL SIGNS: Blood pressure is 114/55, pulse in the 60s, temperature is 98.1, O2 saturations are 97% on room air. GENERAL: Well-developed, well-nourished male in no apparent distress. HEENT: Pupils are equal, round, reactive to light. EOMI. No thrush or lesions. NECK: Supple. No JVD. No bruits. No lymphadenopathy. CHEST: Clear to auscultation bilaterally. CARDIAC: S1, S2. Regular rate and rhythm. ABDOMEN: Diffusely tender. Bowel sounds are present. No guarding, no rebound. EXTREMITIES: Without any edema, erythema or cyanosis. SKIN: Without any petechia, lesion or bruises. NEUROLOGIC: No focal deficits. PSYCHIATRIC: Mood and affect are appropriate. ASSESSMENT AND PLAN: This is a 62-year-old male with a history of bipolar disorder and gastritis who presented with abdominal pain. Imaging revealed portal vein thrombosis and possibly arcuate ligament syndrome. 1. Portal vein thrombosis. I agree with continued anticoagulation. He is currently on Lovenox. He will need to be transitioned to Coumadin. He will need reassessment of anticoagulation in 6 months. The etiology of the portal thrombosis is unclear in this patient. He appears to have arcuate ligament syndrome. Compression of the portal vein by this process can predispose him to portal thrombosis. He does not appear to have any liver disease. No history of any collagen vascular disease. He is not on any medications that can predispose him to blood clots. There is no family history of blood disorders. He has not had any recent trauma. There is no evidence of underlying pancreatitis. These are some of the common causes of portal vein thrombosis. We need to make sure that he does not have any inherited thrombophilia. I would order a hypercoagulable workup for this patient. We can only reliably check for factor V Leiden, prothrombin mutation, lupus antibodies and homocysteine levels. In the setting of portal thrombosis and on anticoagulation, we cannot reliably check for protein C and protein S deficiency. I will also check for any presence of paroxysmal nocturnal hemoglobinuria (PNH). We will obtain flow cytometry for PNH, check UA. I would also check for JAK2 mutation, with reflex testing for exon 12, MPL and calreticulin to rule out any underlying myeloproliferative neoplasm. This was discussed with the patient at length. He is in significant amount of pain; I would defer further management regarding this to the primary team. 2. Arcuate ligament syndrome. This is a rare disorder. There is some evidence of this based on his imaging. This is caused by compression of the celiac artery by median arcuate ligament. The etiology of this syndrome is incompletely understood and possibly related to ischemic and neuropathic mechanisms. I would recommend further management of this to Surgery. Thank you for allowing me to participate in the care of this patient. I will continue to follow this patient along. MD JAZMIN Bond/TALIA , 12:56 AM , 01:11 AM
[2018-01-20 03:38] VITALS: TEMP 98.1
[2018-01-20] MEDS: Ciprofloxacin 400 MG/200 ML 400 MG/200 ML PIGGYBACK IV.SIG SCH (04:59)
[2018-01-20 05:01] LABS: Baso % (Auto) 0.6 % (0.0-2.0); Eos # (Auto) 0.1 th/mm3 (0.0-0.4); Eos % (Auto) 2.4 % (0.0-4.0); Hematocrit 37.1 % (39.0-51.0); Hemoglobin 12.8 gm/dL (13.0-17.0); Lymph # (Auto) 1.4 th/mm3 (1.0-4.8); Lymph % (Auto) 29.5 % (9.0-44.0); Mean Corpuscular HGB Conc 34.4 % (32.0-36.0); Mean Corpuscular Hemoglobin 32.1 pg (27.0-34.0); Mean Corpuscular Volume 93.2 fL (80.0-100.0); Mean Platelet Volume 9.1 fL (7.0-11.0); Mono # (Auto) 0.5 th/mm3 (0.0-0.9); Mono % (Auto) 9.7 % (0.0-8.0); Neut # (Auto) 2.8 th/mm3 (1.8-7.7); Neut % (Auto) 57.8 % (16.0-70.0); Platelet Count 199 th/mm3 (150-450); Red Blood Count 3.98 mil/mm3 (4.50-5.90); Red Cell Distribution Width 13.8 % (11.6-17.2); White Blood Count 4.9 th/mm3 (4.0-11.0)
[2018-01-20 05:27] LABS: Calcium 8.4 mg/dL (8.5-10.1); Carbon Dioxide 27.6 meq/L (21.0-32.0); Potassium 3.5 meq/L (3.5-5.1)
[2018-01-20 07:56] VITALS: BP 105/55; PULSE 64; RESP 16; O2SAT 96
[2018-01-20] MEDS ORDERED: metroNIDAZOLE 500 MG Tablet PO SCH (08:00)
--- NOTE | 2018-01-20 09:20 | P.PN ---
Subjective Interval history: Patient was seen and examined by Dr. Krishna Leach Physical Exam Vital signs: Vital Signs 01/19/18 09:55 01/19/18 12:00 01/19/18 16:00 Temperature 98.0 F 98.1 F Pulse Rate 70 60 68 Respiratory Rate 18 14 14 Blood Pressure 117/89 102/56 L 114/55 L Pulse Oximetry 100 96 97 01/19/18 17:05 01/19/18 19:38 01/20/18 00:00 Temperature 98 F 98.4 F Pulse Rate 69 76 Respiratory Rate 18 18 18 Blood Pressure 109/56 L 117/61 Pulse Oximetry 96 95 01/20/18 02:20 01/20/18 03:35 01/20/18 07:54 Temperature 98.1 F 98.1 F Pulse Rate 68 64 Respiratory Rate 17 18 16 Blood Pressure 111/60 105/55 L Pulse Oximetry 97 96 Intake & Output 01/19/18 01/20/18 01/20/18 18:59 06:59 18:59 Intake Total 400 / 400 100 / 100 Balance 400 / 400 100 / 100 Intake: IV 400 / 400 100 / 100 Cipro 400 MG/200 ML Inj 400 mg 200 / 200 In 200 ml @ 200 mls/hr IV.SIG Q12H [facility] Rx#:[id number] Flagyl 500 MG Inj 100 ML @ 100 200 / 200 100 / 100 mls/hr IV.SIG Q8H ALEXIA Rx#: [id number] Other: Date of Last Bowel Movement 01/17/18 Results - Labs CBC & Chem 7: 01/20/18 04:39 01/20/18 04:39 Laboratory Results - last 24 hr 01/20/18 01/20/18 04:39 04:39 WBC 4.9 RBC 3.98 L Hgb 12.8 L Hct 37.1 L MCV 93.2 MCH 32.1 MCHC 34.4 RDW 13.8 Plt Count 199 MPV 9.1 Neut % (Auto) 57.8 Lymph % (Auto) 29.5 [place] % (Auto) 9.7 H Eos % (Auto) 2.4 Baso % (Auto) 0.6 Neut # (Auto) 2.8 Lymph # (Auto) 1.4 [place] # (Auto) 0.5 Eos # (Auto) 0.1 Baso # (Auto) 0.0 WBC Differential . Differential Comment Auto diff final Sodium 139 Potassium 3.5 Chloride 105 Carbon Dioxide 27.6 Anion Gap 6 BUN 5 L Creatinine 0.91 Estimated GFR 84 L Random Glucose 107 H Calcium 8.4 L Assessment and Plan - Assessment (1) Epigastric abdominal pain Code(s): R10.13 - Epigastric pain Status: Acute (2) Portal vein thrombosis Code(s): I81 - Portal vein thrombosis Status: Acute - Plan 62 y/o male with a history of bipolar, and gastritis presented to the ED after being instructed to come to the ED by Dr. Deleon. Patient is complaining of RUQ abdominal tenderness that has been going on for 2 weeks. Portal vein thrombus -CT abdomen reviewed and shows a portal vein thrombosis -Consult GI for evaluation and further recommendation. Seen by Dr. Ramos, recommends consult for possible surgery for median arcuate ligament syndrome And hematology for hypercoagulable state. -Full anticoagulation with Lovenox per GI -IV antibiotics Cipro and Flagyl per GI -Pain management switch to oxycodone PO, IV Dilaudid breakthrough. -Spoke with general surgery they did MRA for the patient and will need to follow-up in their office. Clear for discharge. -Abdominal MRA showed focal stenosis proximal celiac artery with some inferior displacement in a pattern most characteristic of median arcuate ligament syndrome. 2. Portal vein thrombosis extending into branch vessels with diminished perfusion noted in the left lobe of the liver -Initial INR within normal, CMP was normal, LFTs within normal. -Pending hematology consult. Bipolar, chronic -Resume home medications Gastritis, chronic -Resume home Protonix and Carafate DVT prophylaxis: Lovenox Discharge Planning: Plan to DC home when clinically improved and Cleared by GI, GS. Needs hematology
--- NOTE | 2018-01-20 09:24 | P.DS ---
Date of admission: 01/18/18 01:16 Primary care physician: UNKNOWN Attending physician on discharge: Vianey Leach Anticipated date of discharge: 01/20/18 Brief History from admission: 62 y/o male with a history of bipolar, and gastritis presented to the ED after being instructed to come to the ED by Dr. Deleon. Patient is complaining of RUQ abdominal tenderness that has been going on for 2 weeks. 8/10, constant,stabbing , worse with movement and food, with associated nausea, pain medication does help. The son is at bedside and states the DrEdilia told him to come to the hospital to be evaluated for a blood clot. Patient denies any associated chest pain or sob. Patient was last seen 12/28 and was evaluated by General surgery and GI. There were conflicting scans that showed a portal vein thrombus, but then the ultrasound showed a patent portal vein. Patient underwent a EGD and patient was found to have gastritis, and gen surgery stated there was no abscess on the scan and no intervention was need. Patient was then discharged on Protonix and sucralfate. ER physician discussed case with Dr. Ramos who is fire control officer and he suggested Full anticoagulation, with IV antibiotics and consult placed. DS: Diagnosis - Discharge Diagnosis (1) Epigastric abdominal pain Status: Acute (2) Portal vein thrombosis Status: Acute DS: Medications - Discharge Medications Prescriptions: enoxaparin [Lovenox] 80 mg SUB-Q Q12H 30 Days #60 ml oxycodone 10 mg PO Q4H PRN #21 ml PRN Reason: Acute Pain DS: Summary Hospital Course: 62 y/o male with a history of bipolar, and gastritis presented to the ED after being instructed to come to the ED by Dr. Deleon. Patient is complaining of RUQ abdominal tenderness that has been going on for 2 weeks. Patient initially came into the hospital for the same presentation. They did an EGD on him found to have gastritis and was sent home with medications for gastritis. He came in again for complaints of right upper quadrant abdominal tenderness the CT of the abdomen was reviewed and showed portal vein thrombosis. GI was consulted for evaluation and further recommendation he was seen by Dr. Ramos. Dr. Ramos recommended for general surgery consult for a possible surgery as patient was found to have median arcuate ligament syndrome. He was placed on full anticoagulation with Lovenox he was also started on antibiotics Cipro and Flagyl. Hematology was also consulted for hypo-or coagulable state. Patient was seen by general surgery and ordered for an abdominal MRA. Abdominal MRA was done showed focal stenosis proximal celiac artery with some inferior displacement in a pattern most characteristic of median arcuate ligament syndrome. 2. Portal vein thrombosis extending into branch vessels with diminished perfusion noted in the left lobe of the liver. INR was within normal , CMP was normal, LFTs within normal. No history of any liver disease or problem. Patient was seen by Dr. Prince from hematology. Recommends to continue with Lovenox and will transition to Coumadin and outpatient. However patient is planned to have surgical intervention by Dr. Claros/Dr. Aragon. He will continue with the Lovenox until surgery is over. Compression of the portal vein can predispose him to portal thrombosis. Dr. Bui evaluate the patient for hypercoagulable workup including workup for paroxysmal nocturnal hemoglobinuria (PNH). He will need to follow-up in his office for all the results of the test. All of the patient's treatment, diagnosis, and follow-up have been extensively discussed with patient and his son prior to discharge by Dr. Leach. He will be on pain management of oxycodone liquid for 7 days. He will follow-up with general surgery, hematology within the week. And would also schedule a follow- up with Dr. Ramos. Surgical intervention should be planned in the outpatient. Patient appears to have pain seeking behavior. He has been reassured. He will be evaluated in the outpatient if the pain medication should continue. the[employer] Prescription Drug Monitoring Database has been queried and verified prior to prescribing the controlled substance. Patient is having significant pain caused by median arcuate ligament syndrome which will last more than 3 days. Trial of Tylenol has not helped. We believe that it is medically necessary to treat patients pain because it is affecting patients ability to do ADL. - Time Spent with Patient Total time spent providing and/or coordinating discharge services: Greater than 30 minutes - Quality: VTE Deep Vein Thrombosis/Pulmonary Embolism Present on Admission: No Exam Vital signs: Vital Signs 01/19/18 09:55 01/19/18 12:00 01/19/18 16:00 Temperature 98.0 F 98.1 F Pulse Rate 70 60 68 Respiratory Rate 18 14 14 Blood Pressure 117/89 102/56 L 114/55 L Pulse Oximetry 100 96 97 01/19/18 17:05 01/19/18 19:38 01/20/18 00:00 Temperature 98 F 98.4 F Pulse Rate 69 76 Respiratory Rate 18 Blood Pressure 109/56 L 117/61 Pulse Oximetry 96 95 01/20/18 02:20 01/20/18 03:35 01/20/18 07:54 Temperature 98.1 F 98.1 F Pulse Rate 68 64 Respiratory Rate 16 Blood Pressure 111/60 105/55 L Pulse Oximetry 97 96 Intake & Output 01/19/18 01/20/18 01/20/18 18:59 06:59 18:59 Intake Total 400 / 400 100 / 100 Balance 400 / 400 100 / 100 Intake: IV 400 / 400 100 / 100 Cipro 400 MG/200 ML Inj 400 mg 200 / 200 In 200 ml @ 200 mls/hr IV.SIG Q12H ALEX[facility] Rx#:[id number] Flagyl 500 MG Inj 100 ML @ 100 200 / 200 100 / 100 mls/hr IV.SIG Q8H ALEXIA Rx#: [id number] Other: Date of Last Bowel Movement 01/17/18 Narrative: GENERAL: This is a well-nourished, well-developed patient, in no apparent distress. SKIN: Warm and dry. HEENT: Normocephalic. Pupils equal round and reactive. Nose without bleeding. Airway patent. NECK: Trachea midline. Supple. CARDIOVASCULAR: Regular rate and rhythm without murmurs, gallops, or rubs. RESPIRATORY: Clear to auscultation. Breath sounds equal bilaterally. No wheezes , rales, or rhonchi. GASTROINTESTINAL: Abdomen soft, nondistended. Bowel Sounds normoactive x4. Tender to palpate midepigastric region towards right upper quadrant. MUSCULOSKELETAL: Extremities without clubbing, cyanosis, or edema. NEUROLOGICAL: Awake and alert. Oriented to time, place, person. No focal neuro deficit. Moves all extremities. Normal speech. Results Procedures completed during hospitalization: None Labs on day of discharge: Labs from last 24 hours 01/20/18 01/20/18 01/20/18 04:39 04:39 04:39 WBC RBC Hgb Hct MCV MCH MCHC RDW Plt Count MPV Neut % (Auto) Lymph % (Auto) [place] % (Auto) Eos % (Auto) Baso % (Auto) Neut # (Auto) Lymph # (Auto) [place] # (Auto) Eos # (Auto) Baso # (Auto) WBC Differential Differential Comment [facility] Flow Cytometry Pending Lupus Anticoagulant LA PTT Screen dRVVT Screen Factor V Leiden Mutat Factor V Leiden Interp Sodium Potassium Chloride Carbon Dioxide Anion Gap BUN Creatinine Estimated GFR Random Glucose Calcium Homocysteine Cardiovas Beta-2-GPI IgG Ab Pending Beta-2-GPI IgA Ab Pending Beta-2-GPI IgM Ab Pending Phosphatidylserine IgG Pending Phosphatidylserine IgA Pending Phosphatidylserine IgM Pending Anti-Phospholipid Intrp Pending Anti-Cardiolipin IgG Ab Pending Anti-Cardiolipin IgA Ab Pending Anti-Cardiolipin IgM Ab Pending Prothrombin [id number] Mut JAK2 Mutation (PCR) Pending MPL Mut Analysis Result Pending 01/20/18 01/20/18 01/20/18 04:39 04:39 04:39 WBC 4.9 RBC 3.98 L Hgb 12.8 L Hct 37.1 L MCV 93.2 MCH 32.1 MCHC 34.4 RDW 13.8 Plt Count 199 MPV 9.1 Neut % (Auto) 57.8 Lymph % (Auto) 29.5 [place] % (Auto) 9.7 H Eos % (Auto) 2.4 Baso % (Auto) 0.6 Neut # (Auto) 2.8 Lymph # (Auto) 1.4 [place] # (Auto) 0.5 Eos # (Auto) 0.1 Baso # (Auto) 0.0 WBC Differential . Differential Comment Auto diff final PNH Flow Cytometry Lupus Anticoagulant Pending LA PTT Screen Pending dRVVT Screen Pending Factor V Leiden Mutat Pending Factor V Leiden Interp Pending Sodium 139 Potassium 3.5 Chloride 105 Carbon Dioxide 27.6 Anion Gap 6 BUN 5 L Creatinine 0.91 Estimated GFR 84 L Random Glucose 107 H Calcium 8.4 L Homocysteine Cardiovas Pending Beta-2-GPI IgG Ab Beta-2-GPI IgA Ab Beta-2-GPI IgM Ab Phosphatidylserine IgG Phosphatidylserine IgA Phosphatidylserine IgM Anti-Phospholipid Intrp Anti-Cardiolipin IgG Ab Anti-Cardiolipin IgA Ab Anti-Cardiolipin IgM Ab Prothrombin [id number] Mut Pending JAK2 Mutation (PCR) MPL Mut Analysis Result - Impressions ITS Impressions Abdomen/Pelvis CT 01/17/18 23:11 CONCLUSION: 1. There are areas of portal vein thrombosis again noted. 2. The gallbladder remains unremarkable in appearance. 3. Hepatic steatosis. Abdomen MRA 01/18/18 00:00 CONCLUSION: 1. Focal stenosis proximal celiac artery with some inferior displacement in a pattern most characteristic of median arcuate ligament syndrome. 2. Portal vein thrombosis extending into branch vessels with diminished perfusion noted in the left lobe of the liver. Discharge Plan - Discharge Disposition Patient Disposition: /Home Health Service - Discharge Condition Condition: Stable - Discharge Order Discharge Orders: Discharge Order (Routine); Ordered 01/20/18 Ordered By: Peter Ellison - Physicians Team Primary Care Provider: UNKNOWN, Attending Provider: Vianey Leach Other Providers: Adrián Ramos MD ; Wang Graves MD ; Demetrio Prince MD ; [facility], [facility]
--- NOTE | 2018-01-20 09:26 | P.DCO ---
- Physical Therapy Order: Evaluate and treat - Home Health Nursing Order: Medical education, Signs/symptoms of disease process, Medication education-adverse effect, Nursing assessment with vital signs Instructions: Injectable Lovenox - Certification I have seen patient Dami Ruffin on 01/20/18. My clinical findings support the need for the requested home health care services because: Limited mobility due to disease progression, Deconditioned with increased weakness, Limited ability to care for self I certify that my clinical findings support that this patient is homebound because: Unsteady gait/balance
[2018-01-20] MEDS: Gabapentin 300 MG Capsule PO SCH (09:35)
[2018-01-20] MEDS: QUEtiapine 100 MG Tablet PO SCH (09:36)
[2018-01-20] MEDS: Enoxaparin Inj 80 MG/0.8 ML Syringe SQ SCH (11:13)
[2018-01-23 15:52] LABS: Dil Russell Viper Venom Conf ( ND (NEGATIVE); Dil Russell Viper Venom Time M ND (CORRECTED); Lupus Anticoagulant PTT Screen 52 seconds (< OR = 40)
[2018-01-23 23:54] LABS: Homocysteine (Cardiovascular) 8.9 umol/L (<11.4)
[2018-01-25 09:26] LABS: Factor V Leiden Mutation Negative (Negative)
== END 2018-01-20 11:57 | disposition home health service (06) ==
LOC: NEPC 20:48 → NEDA 20:48 → NEPHCDU 20:48
PROVIDERS: ADMIT Hospitalist; ATTEND Hospitalist
DX: F41.9 Anxiety disorder, unspecified; Z90.49 Acquired absence of other specified parts of digestive tract; K29.70 Gastritis, unspecified, without bleeding; K76.0 Fatty (change of) liver, not elsewhere classified; I77.4 Celiac artery compression syndrome; Z79.01 Long term (current) use of anticoagulants; K20.9 Esophagitis, unspecified; I81 Portal vein thrombosis; Z86.718 Personal history of other venous thrombosis and embolism; F31.9 Bipolar disorder, unspecified; R10.11 Right upper quadrant pain